=== PATIENT | female | born 1985 | race Caucasian/White ===

== ENCOUNTER 2018-06-15 13:59 | Outpatient (CLI) | payer SELFPAY ==
[~2018-06-15] VITALS: Ht 160 cm; Wt 94.1 kg
[2018-06-15] MEDS ORDERED: FLUO20CA42 PO (14:12)
[2018-06-15] MEDS ORDERED: ALPR0.5T PO (14:12)
[2018-06-15 14:14] VITALS: BP 137/97
[2018-06-15 14:55] LABS: BASOPHILS % (AUTO) 0 % (0-10); EOSINOPHILS # (AUTO) 0.1 10^3/uL (0.0-0.3); EOSINOPHILS % (AUTO) 1 % (0-10); HEMATOCRIT 33 % (35-52); HEMOGLOBIN 10.8 G/DL (11.5-16.0); LYMPHOCYTES # (AUTO) 1.8 X 10^3 (1.0-4.0); LYMPHOCYTES % (AUTO) 21 % (12-44); MEAN CORPUSCULAR HEMOGLOBIN 26 PG (25-34); MEAN CORPUSCULAR HGB CONC 33 G/DL (32-36); MEAN CORPUSCULAR VOLUME 79 FL (80-99); MEAN PLATELET VOLUME 10.8 FL (7.4-10.4); MONOCYTES # (AUTO) 0.3 X 10^3 (0.0-1.0); MONOCYTES % (AUTO) 4 % (0-12); NEUTROPHILS # (AUTO) 6.2 X 10^3 (1.8-7.8); NEUTROPHILS % (AUTO) 74 % (42-75); PLATELET COUNT 274 10^3/uL (130-400); RED CELL DISTRIBUTION WIDTH 15.3 % (10.0-14.5); WHITE BLOOD COUNT 8.4 10^3/uL (4.3-11.0)
== END 2018-06-15 15:13 | disposition home or self-care (01) ==
LOC: PREOP 13:59
PROVIDERS: ATTEND Obstetrics & Gynecology
DX: Z01.812 Encounter for preprocedural laboratory examination (principal); Z11.2 Encounter for screening for other bacterial diseases; N92.1 Excessive and frequent menstruation with irregular cycle; N93.8 Other specified abnormal uterine and vaginal bleeding; R10.2 Pelvic and perineal pain; D64.9 Anemia, unspecified
CPT/HCPCS: 36415; 85025; 86850; 86900; 86901; 87081

== ENCOUNTER 2019-01-25 21:27 | Emergency (ER) | payer OTHER ==
[~2019-01-25] VITALS: Ht 162.6 cm; Wt 104.3 kg
[~2019-01-25 21:27] MED LIST: ALPR0.5T PO; DOCU100C37 PO; FLUO20CA42 PO; IBUP-1780 PO; OXYC-471 PO
--- NOTE | 2019-01-25 21:30 | NUR ---
DOCTOR ALICE IN TO SEE THE PATIENT.
[2019-01-25] MEDS ORDERED: KETOROLAC 30 MG/ML VIAL IVP ONE (22:00)
--- NOTE | 2019-01-25 22:02 | ED Chest Pain ---
General Chief Complaint: Chest Pain Stated Complaint: CHEST PAIN, SOB Nursing Triage Note: CHEST PAIN STARTED THIS AFTERNOON. MID STERNAL MOVEMENT MAKES IT WORSE. PT. REPORTED SHEMOVED AN OUT SIDE TALBE TODAY. PT. REPORTED SHE HAS A HX OF ANXIETY. Nursing Sepsis Screen: No Definite Risk Source: patient History of Present Illness Date Seen by Provider: Jan 25, 2019 Time Seen by Provider: 21:35 Initial Comments 33 yo F presenting with sternal sharp chest pains that have been present off and on all day but worse since a little after lunch time today. She also had moved some patio furniture and that has seemed to make the pain worse, as well as deep breathing making the pain worse. She states that this also feels somewhat similar to inflammation that she is having the past to her breast bone. She thought that she has grown out of that pain. She states that she also has a history of anxiety and also feels similar to this pain. She felt like it was getting worse tonight so she came to the emergency department. She denies having any nausea or vomiting with it. She does not feel short of breath with the pain. She has no known cardiac history. She has no significant family cardiac history. She has not tried taking anything for the pain. Location: substernal Radiation: no radiation Activities at Onset: activity Prior CP/Workup: no prior cardiac workup ASA po SKEIN YARN DRIER: No NTG SL SKE[place] Y[place] DRIER: No Associated Symptoms: denies symptoms Allergies and Home Medications Allergies Coded Allergies: codeine (Verified Allergy, Severe, THROAT SWELLING, 01/25/19) ranitidine (Verified Allergy, Severe, TACHYCARDIA, ITCHING, 06/15/18) atropine (Verified Allergy, Mild, HIVES, 06/15/18) hyoscyamine (Verified Allergy, Mild, HIVES, 06/15/18) omeprazole (Verified Allergy, Mild, RASH, 06/15/18) phenobarbital (Verified Allergy, Mild, HIVES, 06/15/18) scopolamine (Verified Allergy, Mild, HIVES, 06/15/18) Home Medications Alprazolam 0.5 Mg Tablet, 0.5 MG PO TID, (Reported) Docusate Sodium 100 Mg Capsule, 100 MG PO BID Prescribed by: FLORY BARBER on 06/18/18 1158 Fluoxetine HCl 20 Mg Capsule, 20 MG PO DAILY, (Reported) Ibuprofen 800 Mg Tablet, 800 MG PO Q6HR Prescribed by: FLORY BARBER on 06/18/18 1158 Oxycodone HCl/Acetaminophen 1 Each Tablet, 1 TAB PO Q4H PRN for PAIN-MODERATE Prescribed by: FLORY BARBER on 06/18/18 1158 Patient Home Medication List Home Medication List Reviewed: Yes Review of Systems Review of Systems Constitutional: No chills, No fever EENTM: No Symptoms Reported Respiratory: Denies Cough, Denies Shortness of Air Cardiovascular: See HPI Gastrointestinal: See HPI Genitourinary: No Symptoms Reported Musculoskeletal: back pain (chronic upper back pain) Skin: No rash Psychiatric/Neurological: Anxiety Past Fkdbeqa-Gmplyr-Fwljyo Hx Past Med/Social Hx: Reviewed Nursing Past Med/Soc Hx Patient Social History Type Used: Electronic/Vapor Recent Foreign Travel: No Contact w/Someone Who Travel: No Recent Infectious Disease Expo: No Recent Hopitalizations: No Physical Abuse: No Sexual Abuse: No Mistreated: No Fear: No Seasonal Allergies Seasonal Allergies: Yes Past Medical History Surgeries: Yes Gallbladder Respiratory: No Cardiac: Yes Hypertension : No 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: Yes (DUB, CPP, MENORRHAGIA) Female 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: 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, 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 Sexually Transmitted Disease: No HIV/AIDS: No Gastrointestinal: Yes Gastroesophageal Reflux, Chronic Constipation, Chronic Diarrhea, Hiatal Hernia Musculoskeletal: Yes Chronic Back Pain Endocrine: No HEENT: No Loss of Vision: Bilateral Cancer: No Psychosocial: Yes Anxiety, Depression Adverse Reaction/Blood Tranf: No (N/A) Physical Exam Vital Signs Vital Signs - First Documented 01/25/19 01/25/19 21:30 22:39 Temp 98.3 Pulse 100 Resp 16 B/P (MAP) 141/97 (112) Pulse Ox 100 O2 Delivery Nasal Cannula O2 Flow Rate 2.0 Capillary Refill : Greater Than 3 Seconds Height, Weight, BMI Height: 5'4.00" Weight: 230lbs. 6.0oz. [id number]; 36.7 BMI Method:Stated General Appearance: WD/WN, Anxious HEENT: PERRL/EOMI, Normal ENT Inspection, Pharynx Normal, Moist Mucous Membranes Neck: Full Range of Motion, Normal Inspection, Non Tender, Supple Respiratory: Lungs Clear, Normal Breath Sounds, No Accessory Muscle Use, No Respiratory Distress, Other (tender to palpation over sternum) Cardiovascular: Regular Rate, Rhythm, No Edema, No Gallop, No JVD, No Murmur, Normal Peripheral Pulses Gastrointestinal: Normal Bowel Sounds, No Pulsatile Mass, Non Tender, Soft Rectal: Deferred Extremity: Normal Capillary Refill, Normal Inspection, Normal Range of Motion, Non Tender, No Calf Tenderness, No Pedal Edema Neurologic/Psychiatric: Alert, Oriented x3 Skin: Normal Color, Warm/Dry Progress/Results/Core Measures Results/Orders Lab Results Laboratory Tests Test 01/25/19 22:15 Range/Units White Blood Count 10.0 4.3-11.0 10^3/uL Red Blood Count 4.14 L 4.35-5.85 10^6/uL Hemoglobin 10.7 L 11.5-16.0 G/DL Hematocrit 34 L 35-52 % Mean Corpuscular Volume 82 80-99 FL Mean Corpuscular Hemoglobin 26 25-34 PG Mean Corpuscular Hemoglobin Concent 32 32-36 G/DL Red Cell Distribution Width 16.6 H 10.0-14.5 % Platelet Count 324 130-400 10^3/uL Mean Platelet Volume 10.1 7.4-10.4 FL Neutrophils (%) (Auto) 73 42-75 % Lymphocytes (%) (Auto) 22 12-44 % Monocytes (%) (Auto) 4 0-12 % Eosinophils (%) (Auto) 1 0-10 % Basophils (%) (Auto) 0 0-10 % Neutrophils # (Auto) 7.3 1.8-7.8 X 10^3 Lymphocytes # (Auto) 2.2 1.0-4.0 X 10^3 Monocytes # (Auto) 0.4 0.0-1.0 X 10^3 Eosinophils # (Auto) 0.1 0.0-0.3 10^3/uL Basophils # (Auto) 0.0 0.0-0.1 10^3/uL Prothrombin Time 12.8 12.2-14.7 SEC INR Comment 1.0 0.8-1.4 Activated Partial Thromboplast Time 27 24-35 SEC Sodium Level 141 135-145 MMOL/L Potassium Level 3.6 3.6-5.0 MMOL/L Chloride Level 104 98-107 MMOL/L Carbon Dioxide Level 25 21-32 MMOL/L Anion Gap 12 5-14 MMOL/L Blood Urea Nitrogen 13 7-18 MG/DL Creatinine 0.76 0.60-1.30 MG/DL Estimat Glomerular Filtration Rate > 60 BUN/Creatinine Ratio 17 Glucose Level 117 H 70-105 MG/DL Calcium Level 9.4 8.5-10.1 MG/DL Corrected Calcium 9.3 8.5-10.1 MG/DL Magnesium Level 2.1 1.8-2.4 MG/DL Total Bilirubin 0.2 0.1-1.0 MG/DL Aspartate Amino Transf (AST/SGOT) 14 5-34 U/L Alanine Aminotransferase (ALT/SGPT) 13 0-55 U/L Alkaline Phosphatase 92 40-136 U/L Troponin T < 10 <=10 NG/L Pro-B-Type Natriuretic Peptide 81.9 H <75.0 PG/ML Total Protein 7.5 6.4-8.2 GM/DL Albumin 4.1 3.2-4.5 GM/DL My Orders Orders - ENYARTYANELY MD Cbc With Automated Diff (01/25/19 21:53) Magnesium (01/25/19 21:53) Chest 1 View Ap/Pa Only (01/25/19 21:53) Ekg Tracing (01/25/19 21:53) Comprehensive Metabolic Panel (01/25/19 21:53) Protime With Inr (01/25/19 21:53) Partial Thromboplastin Time (01/25/19 21:53) O2 (01/25/19 21:53) Monitor-Rhythm Ecg Trace Only (01/25/19 21:53) Saline Lock/Iv-Start (01/25/19 21:53) Troponin T (01/25/19 21:53) Probnp Fs (01/25/19 21:53) Ketorolac Injection (Toradol Injection) (01/25/19 22:00) Medications Given in ED Current Medications Medications Dose Ordered Sig/Shahram Route Start Time Stop Time Status Last Admin Dose Admin Ketorolac Tromethamine 30 mg ONCE ONCE IVP 01/25/19 22:00 01/25/19 22:01 DC 01/25/19 22:22 30 MG Vital Signs/I&O 01/25/19 01/25/19 01/25/19 21:30 21:30 22:39 Temp 98.3 Pulse 100 Resp 16 B/P (MAP) 141/97 (112) Pulse Ox 100 O2 Delivery Nasal Cannula Nasal Cannula O2 Flow Rate 2.0 2.00 Blood Pressure Mean: 112 Progress Progress Note #1: Time: 22:00 Progress Note Will check labs and ECG with CXR. Try Toradol for pain since she has some reproducible pain and some pain with deep breaths. Since this does not appear to be cardiac in nature will hold off on aspirin. Progress Note #2: Time: 23:00 Progress Note labs are stable and did not show any acute significant abnormalities. She has negative cardiac enzymes and they're not elevated at all. Especially after having pain all day for several hours if this was cardiac in nature I would expect to see at least some elevation. Her chest x-ray on my review of the one view film does not show any acute significant abnormality. She has no effusion or infiltrate. Her heart size is normal and there is no cardiomegaly. Consultation on results and encouraged to follow-up through the clinic for further concerns. Advised that this seems to be more musculoskeletal in nature and chest wall pain. Will continue with ibuprofen at home and she refused the prescription. We will also have her try alternating ice and heat to the chest wall. Initial ECG Impression Date: Jan 25, 2019 Initial ECG Impression Time: 21:34 Initial ECG Rate: 92 Initial ECG Rhythm: Normal Sinus Initial ECG Intervals DC interval 160 ms. QT interval 386 ms with a QT corrected interval of 477 ms. There is a slightly prolonged QT. No ST elevation and no prior tracing for comparison. Initial ECG Comparisson: No Previous ECG Available Comment She has some T-wave flattening and there's T-wave inversion in leads V1 and 2 and 3. There is no ST elevation. She does have prolonged QT interval. These are nonspecific findings and there is no prior tracing for comparison. Diagnostic Imaging Diagonstic Imaging: Xray Plain Films/CT/US/NM/MRI: chest Comments On my review of the 1 view chest x-ray there is no acute infiltrate or effusion. She has no cardiomegaly. Reviewed: Reviewed by Me Departure Impression Primary Impression: Anterior chest wall pain Additional Impressions: Costochondral chest pain Non-cardiac chest pain Disposition: 01 HOME, SELF-CARE Condition: Stable Departure-Patient Inst. Decision time for Depature: 23:20 Referrals: SELFDARRELL MD (PCP) Primary Care Physician Patient Instructions: Chest Pain That Is Not Caused by the Heart (DC), Costochondritis (DC) Add. Discharge Instructions: Try Ibuprofen 800 mg every 8 hours as needed for chest wall pain. Check with Dr. Andrade in clinic for continued concerns/problems You may also try alternating ice pack for 20-30 minutes to your chest wall and then in a few hours you could apply heat for 20-30 minutes to the chest wall. All discharge instructions reviewed with patient and/or family. Voiced understanding. YANELY JENKINS MD Jan 25, 2019 22:02
[2019-01-25 22:26] LABS: EOSINOPHILS % (AUTO) 1 % (0-10); HEMATOCRIT 34 % (35-52); HEMOGLOBIN 10.7 G/DL (11.5-16.0); LYMPHOCYTES % (AUTO) 22 % (12-44); MEAN CORPUSCULAR HEMOGLOBIN 26 PG (25-34); MEAN CORPUSCULAR HGB CONC 32 G/DL (32-36); MEAN CORPUSCULAR VOLUME 82 FL (80-99); MEAN PLATELET VOLUME 10.1 FL (7.4-10.4); MONOCYTES % (AUTO) 4 % (0-12); NEUTROPHILS % (AUTO) 73 % (42-75); PLATELET COUNT 324 10^3/uL (130-400); RED CELL DISTRIBUTION WIDTH 16.6 % (10.0-14.5)
[2019-01-25 22:27] LABS: BASOPHILS % (AUTO) 0 % (0-10); EOSINOPHILS # (AUTO) 0.1 10^3/uL (0.0-0.3); LYMPHOCYTES # (AUTO) 2.2 X 10^3 (1.0-4.0); MONOCYTES # (AUTO) 0.4 X 10^3 (0.0-1.0); NEUTROPHILS # (AUTO) 7.3 X 10^3 (1.8-7.8)
[2019-01-25 22:52] LABS: PROTHROMBIN TIME PATIENT 12.8 SEC (12.2-14.7)
--- NOTE | 2019-01-25 22:56 | NUR ---
PT. REPORTED HER PAIN HAD IMPROVED.
[2019-01-25 22:58] LABS: ALANINE AMINOTRANSFERASE 13 U/L (0-55); ALBUMIN 4.1 GM/DL (3.2-4.5); ALKALINE PHOSPHATASE 92 U/L (40-136); BILIRUBIN,TOTAL 0.2 MG/DL (0.1-1.0); BUN/CREATININE RATIO 17; CALCIUM 9.4 MG/DL (8.5-10.1); CARBON DIOXIDE 25 MMOL/L (21-32); CHLORIDE 104 MMOL/L (98-107); CREATININE SERUM 0.76 MG/DL (0.60-1.30); GFR ESTIMATED > 60; GLUCOSE 117 MG/DL (70-105); MAGNESIUM 2.1 MG/DL (1.8-2.4); POTASSIUM 3.6 MMOL/L (3.6-5.0); SODIUM 141 MMOL/L (135-145); TOTAL PROTEIN 7.5 GM/DL (6.4-8.2)
[2019-01-25 23:33] VITALS: BP 130/80
--- NOTE | 2019-01-26 07:00 | Diagnostic Imaging Report ---
INDICATION: Mid chest pain started today. COMPARISON STUDY: None FINDINGS: Frontal view of the chest demonstrates lungs to be clear. The heart, mediastinum, pulmonary vascularity and visualized bony thorax are normal. IMPRESSION: Negative chest. Dictated by: Dictated on workstation # [id number]
== END 2019-01-25 23:30 | disposition home or self-care (01) ==
LOC: EDUNIT# 21:27 → ER FS 21:29
DX: R07.89 Other chest pain (principal); I10 Essential (primary) hypertension; K21.9 Gastro-esophageal reflux disease without esophagitis; F41.9 Anxiety disorder, unspecified; F32.9 Major depressive disorder, single episode, unspecified; Z87.19 Personal history of other diseases of the digestive system; Z88.5 Allergy status to narcotic agent; Z88.8 Allergy status to other drugs, medicaments and biological substances
CPT/HCPCS: 36415; 71045; 80053; 83735; 83880; 84484; 85025; 85610; 85730; 93041; 96374

== ENCOUNTER 2019-01-28 19:45 | Emergency (ER) | payer OTHER ==
[~2019-01-28] VITALS: Ht 162.6 cm; Wt 104.5 kg
--- NOTE | 2019-01-28 20:09 | ED General ---
General Stated Complaint: HIGH HEART RATE, SOB Source of Information: Patient Exam Limitations: No Limitations (KWKAU KIMBROUGH MD) History of Present Illness Date Seen by Provider: Jan 28, 2019 Time Seen by Provider: 19:52 Initial Comments Here with report of heart rate problems and feeling anxious. Apparently she woke up this morning and that her heart rate was in the 40s and then rechecked and was very nervous and heart rate was fast. Has been fast all day. She finally took her metoprolol that she normally takes twice a day this evening. Very concerned about her heart rate. Seen 2 days ago for chest pain and a variety of complaints and has had extensive workup done at that time which proved to be negative. She was doing okay until this afternoon. Does have some intermittent diarrhea but otherwise denies other complaints currently. Timing/Duration: 2-3 Days, Intermittent Severity: Moderate Associated Systoms: No Chest Pain, No Fever/Chills, No Nausea/Vomiting, No Shortness of Air, No Weakness (KWAKU KIMBROUGH MD) Allergies and Home Medications Allergies Coded Allergies: codeine (Verified Allergy, Severe, THROAT SWELLING, 01/25/19) ranitidine (Verified Allergy, Severe, TACHYCARDIA, ITCHING, 06/15/18) atropine (Verified Allergy, Mild, HIVES, 06/15/18) hyoscyamine (Verified Allergy, Mild, HIVES, 06/15/18) omeprazole (Verified Allergy, Mild, RASH, 06/15/18) phenobarbital (Verified Allergy, Mild, HIVES, 06/15/18) scopolamine (Verified Allergy, Mild, HIVES, 06/15/18) Home Medications Alprazolam 0.5 Mg Tablet, 0.5 MG PO TID, (Reported) Docusate Sodium 100 Mg Capsule, 100 MG PO BID Prescribed by: FLORY BARBER on 06/18/18 1158 Fluoxetine HCl 20 Mg Capsule, 20 MG PO DAILY, (Reported) Ibuprofen 800 Mg Tablet, 800 MG PO Q6HR Prescribed by: FLORY BARBER on 06/18/18 1158 Oxycodone HCl/Acetaminophen 1 Each Tablet, 1 TAB PO Q4H PRN for PAIN-MODERATE Prescribed by: FLORY BARBER on 06/18/18 1158 Patient Home Medication List Home Medication List Reviewed: Yes (KWAKU KIMBROUGH MD) Review of Systems Review of Systems Constitutional: see HPI; No chills, No fever EENTM: no symptoms reported Respiratory: No cough, No short of breath Cardiovascular: No chest pain; palpitations Gastrointestinal: No abdominal pain; diarrhea; No nausea, No vomiting Genitourinary: no symptoms reported Musculoskeletal: no symptoms reported Skin: no symptoms reported Psychiatric/Neurological: Anxiety; Denies Weakness (KWAKU KIMBROUGH MD) All Other Systems Reviewed Negative Unless Noted: Yes (KWAKU KIMBROUGH MD) Past Mwuprjr-Mkinak-Jnmvnd Hx Past Med/Social Hx: Reviewed Nursing Past Med/Soc Hx (KWAKU KIMBROGUH MD) Patient Social History Alcohol Use: Denies Use Recreational Drug Use: No Smoking Status: Current Everyday Smoker Type Used: Electronic/Vapor Recent Foreign Travel: No Contact w/Someone Who Travel: No Recent Hopitalizations: No (KWAKU KIMBROUGH MD) Seasonal Allergies Seasonal Allergies: Yes (KWAKU KIMBROUGH MD) Past Medical History Surgeries: Yes Gallbladder Respiratory: No Cardiac: Yes Hypertension 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: Yes (DUB, CPP, MENORRHAGIA) Female 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: 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, 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 Sexually Transmitted Disease: No HIV/AIDS: No Gastrointestinal: Yes Gastroesophageal Reflux, Chronic Constipation, Chronic Diarrhea, Hiatal Hernia Musculoskeletal: Yes Chronic Back Pain Endocrine: No HEENT: No Loss of Vision: Bilateral Cancer: No Psychosocial: Yes Anxiety, Depression Adverse Reaction/Blood Tranf: No (N/A) (KWAKU KIMBROUGH MD) Family Medical History Reviewed Nursing Family Hx (KWAKU KIMBROUGH MD) Physical Exam Vital Signs Vital Signs - First Documented 01/28/19 19:49 Temp 97.8 Pulse 112 Resp 18 B/P (MAP) 139/88 (105) Pulse Ox 99 O2 Delivery Room Air ([facility]) Vital Signs Capillary Refill : (KWAKU KIMBROUGH MD) Height, Weight, BMI Height: 5'4.00" Weight: 230lbs. 6.0oz. 104.840249cy; 36.7 BMI Method:Stated General Appearance: WD/WN, Anxious HEENT: PERRL/EOMI, Pharynx Normal Neck: Non Tender, Supple Respiratory: Lungs Clear, Normal Breath Sounds Cardiovascular: No Murmur, Tachycardia Gastrointestinal: Non Tender, Soft Back: Normal Inspection, No CVA Tenderness, No Vertebral Tenderness Extremity: Normal Range of Motion, Non Tender Neurologic/Psychiatric: Alert, Oriented x3 Skin: Normal Color, Warm/Dry (KWAKU KIMBROUGH MD) Progress/Results/Core Measures Suspected Sepsis SIRS Temperature: Pulse: Respiratory Rate: Blood Pressure / Mean: (KWAKU KIMBROUGH MD) Results/Orders Lab Results Laboratory Tests Test 01/28/19 20:11 Range/Units TSH [place] Testing 1.43 0.35-4.94 UIU/ML (CECELIA DÍAZ DO) Medications Given in ED Current Medications Medications Dose Ordered Sig/Shahram Route Start Time Stop Time Status Last Admin Dose Admin Alprazolam 0.25 mg ONCE ONCE PO 01/28/19 20:15 01/28/19 20:16 DC 01/28/19 20:21 0.25 MG (CECELIA DÍAZ DO) Vital Signs/I&O 01/28/19 01/28/19 19:49 21:01 Temp 97.8 Pulse 112 88 Resp 18 18 B/P (MAP) 139/88 (105) Pulse Ox 99 98 O2 Delivery Room Air Room Air (CECELIA DÍAZ DO) Vital Signs/I&O Capillary Refill : (KWAKU KIMBROUGH MD) Progress Note : Progress Note Seen and evaluated. Reviewed previous evaluation from 2 days ago. Patient reports that she may have not taken her metoprolol is morning this may be part of the cause of her heart rate. She is anxious but calms with reassurance and heart rate is improving with rest to below 100. Thyroid was not checked previously so we will add that today. Xanax 0.25 mg by mouth given. Patient placed on monitor. O2 saturations 100% on room air. Patient has normal blood pressure. Monitor patient. 2030: Care transferred to Dr. Díaz pending thyroid study. Heart rate now 88-90 with O2 sat 98% on room air. Blood pressure 125/77. (KWAKU KIMBROUGH MD) Departure Communication (Admissions) Care assumed from Dr. Kimbrough,. H&P reviewed, agree with previous assessment. Vital signs remained stable, patient visibly last anxious. Thyroid study reviewed and is normal. Patient is stable for discharge from the emergency department. Recommendation is for PCP for further evaluation of potential arrhythmia and consideration of Holter monitor and further management of anxiety. Return cautions reviewed (CECELIA DÍAZ DO) Impression Primary Impression: Anxiety Disposition: 01 HOME, SELF-CARE Condition: Stable Departure-Patient Inst. Referrals: SELFDARRELL MD (PCP/Family) Primary Care Physician Patient Instructions: Anxiety, Adult (DC) Add. Discharge Instructions: Please continue home medications as follow up with your PCP for re-evaluation of potential heart arrhythmia and anxiety and consideration of Holter monitor. KWAKU KIMBROUGH MD Jan 28, 2019 20:09 CECELIA DÍAZ DO Jan 28, 2019 22:24
[2019-01-28] MEDS ORDERED: ALPRAZolam 0.25 MG (XANAX) TAB PO ONE (20:15)
[2019-01-28 22:40] VITALS: BP 103/68
== END 2019-01-28 22:40 | disposition home or self-care (01) ==
LOC: EDUNIT# 19:45 → ER FS 19:47
DX: F41.9 Anxiety disorder, unspecified (principal); I10 Essential (primary) hypertension; K21.9 Gastro-esophageal reflux disease without esophagitis; F32.9 Major depressive disorder, single episode, unspecified; F17.290 Nicotine dependence, other tobacco product, uncomplicated; Z88.5 Allergy status to narcotic agent; Z87.19 Personal history of other diseases of the digestive system; Z88.8 Allergy status to other drugs, medicaments and biological substances; Z87.448 Personal history of other diseases of urinary system; Z98.890 Other specified postprocedural states
CPT/HCPCS: 36415; 84443

== ENCOUNTER 2019-12-02 18:29 | Emergency (ER) | payer OTHER ==
[~2019-12-02] VITALS: Ht 160 cm; Wt 91.5 kg
--- NOTE | 2019-12-02 18:47 | ED Fall/Injury ---
General Stated Complaint: FELL Source: patient History of Present Illness Date Seen by Provider: Dec 02, 2019 Time Seen by Provider: 18:47 Initial Comments 34 yo F presents with complaints of tailbone pain and right knee and ankle pain after falling when getting out of the shower. The fall happened about 1730 tonight. She denies hitting her head or losing consciousness. She did not take anything for pain prior to coming to the emergency department. She has had prior injury to her tailbone when she was younger and states that her tailbone curves out instead of curving in. She has been able to hobble and bear some weight on the right leg but states that it hurts a lot. She has no loss of sensation. She had no loss of bowel or bladder control. Allergies and Home Medications Allergies Coded Allergies: codeine (Verified Allergy, Severe, THROAT SWELLING, 01/25/19) ranitidine (Verified Allergy, Severe, TACHYCARDIA, ITCHING, 06/15/18) atropine (Verified Allergy, Mild, HIVES, 06/15/18) hyoscyamine (Verified Allergy, Mild, HIVES, 06/15/18) omeprazole (Verified Allergy, Mild, RASH, 06/15/18) phenobarbital (Verified Allergy, Mild, HIVES, 06/15/18) scopolamine (Verified Allergy, Mild, HIVES, 06/15/18) Home Medications Alprazolam 0.5 Mg Tablet, 0.5 MG PO TID, (Reported) Cyclobenzaprine HCl 10 Mg Tablet, 5 MG PO Q8H PRN for SPASMS Prescribed by: YANELY JENKINS on 12/02/192102 Docusate Sodium 100 Mg Capsule, 100 MG PO BID Prescribed by: FLORY BARBER on 06/18/18 115 Fluoxetine HCl 20 Mg Capsule, 20 MG PO DAILY, (Reported) Ibuprofen 800 Mg Tablet, 800 MG PO Q6HR Prescribed by: FLORY BARBER on 06/18/18 115 Ibuprofen 800 Mg Tablet, 800 MG PO Q8H PRN for PAIN Prescribed by: YANELY JENKINS on 12/02/192102 Oxycodone HCl/Acetaminophen 1 Each Tablet, 1 TAB PO Q4H PRN for PAIN-MODERATE Prescribed by: FLORY BARBER on 06/18/18 1158 Patient Home Medication List Home Medication List Reviewed: Yes Review of Systems Review of Systems Constitutional: No chills, No fever Eyes: No Symptoms Reported Ears, Nose, Mouth, Throat: no symptoms reported Respiratory: no symptoms reported Cardiovascular: no symptoms reported Gastrointestinal: no symptoms reported Genitourinary: no symptoms reported Musculoskeletal: see HPI Skin: No change in color (no bruising or abrasions), No rash Psychiatric/Neurological: Anxiety; Denies Headache, Denies Numbness, Denies Paresthesia Past Akmgpdc-Puswed-Ucjouh Hx Past Med/Social Hx: Reviewed Nursing Past Med/Soc Hx Patient Social History Type Used: Electronic/Vapor Recent Foreign Travel: No Contact w/Someone Who Travel: No Recent Hopitalizations: No Seasonal Allergies Seasonal Allergies: Yes Past Medical History Surgeries: Yes Gallbladder Respiratory: No Cardiac: Yes Hypertension Neurological: No 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: Yes (DUB, CPP, MENORRHAGIA) Female 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: 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, 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 Sexually Transmitted Disease: No HIV/AIDS: No Genitourinary: No Gastrointestinal: Yes Gastroesophageal Reflux, Chronic Constipation, Chronic Diarrhea, Hiatal Hernia Musculoskeletal: Yes Chronic Back Pain Endocrine: No HEENT: No Loss of Vision: Bilateral Cancer: No Psychosocial: Yes Anxiety, Depression Integumentary: No Blood Disorders: No Adverse Reaction/Blood Tranf: No (N/A) Physical Exam Vital Signs Vital Signs - First Documented 12/02/19 18:38 Temp 37.0 Pulse 99 Resp 20 B/P (MAP) 128/68 (88) Pulse Ox 97 O2 Delivery Room Air Capillary Refill : Height, Weight, BMI Height: 5'4.00" Weight: 230lbs. 6.0oz. [id number]; 36.7 BMI Method:Stated General Appearance: WD/WN, moderate distress (complaining of severe pain in her tailbone and right leg and having difficulty sitting in a wheelchair), obese HEENT: PERRL/EOMI, pharynx normal Neck: non-tender, full range of motion, supple, normal inspection Cardiovascular: normal peripheral pulses, regular rate, rhythm Respiratory: chest non-tender, lungs clear, normal breath sounds, no respiratory distress, no accessory muscle use Back: no CVA tenderness, vertebral tenderness (pain to the lumbar area) Extremities: normal capillary refill, pelvis stable, other (pain with palpation and movement of the right knee and ankle as well as over the coccyx and sacrum.) 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, alert, oriented x 3 Skin: normal color, warm/dry; No ecchymosis [place] Coma Score Best Eye Response: (4) Open Spontaneously Best Verbal Response: (5) Oriented Best Motor Response: (6) Obeys Commands Gi Total: 15 Progress/Results/Core Measures Results/Orders My Orders Orders - YANELY JENKINS MD Ketorolac Injection (Toradol Injection) (12/02/19 18:58) Ct Lumbar Spine Wo (12/02/19 18:58) Ct Pelvis Wo (12/02/19 18:58) Knee 3 View Right (12/02/19 18:58) Ankle 3 View Right (12/02/19 18:58) Ice: Apply To Affected Area (12/02/19 18:58) Elevate Affected Extremity (12/02/19 18:58) Nursing Communication (Order) (12/02/19 18:59) Gel Ankle Brace (12/02/19 20:31) Abhi Bandage (12/02/19 20:31) Rx-Cyclobenzaprine Tablet (Rx-Flexeril T (12/02/19 21:03) Vital Signs/I&O 12/02/19 12/02/19 18:38 21:12 Temp 37.0 37.0 Pulse 99 99 Resp 20 20 B/P (MAP) 128/68 (88) 128/68 (88) Pulse Ox 97 97 O2 Delivery Room Air Room Air Progress Progress Note #1: Progress Note Toradol for pain, ice and elevation for right leg. obtain CT of lumbar spine and pelvis to evaluate the lumbar spine and pelvis with tailbone area. Xrays of the knee and ankle on right side Progress Note #2: Progress Note No acute bony abnormality or fracture seen on CT scans or plain films. Pain slightly improved after treatment in the ED. Counseled on results. Treat with anti-inflammatories as patient refuses stronger pain medicine. Will prescribe a low-dose muscle relaxer as well. Counseled to follow up with clinic for continued concerns Diagnostic Imaging Diagonstic Imaging: CT Plain Films/CT/US/NM/MRI: pelvis Comments NAME: ZEUS BULLARD MED REC#: [id number] PT STATUS: REG ER : 1985 PHYSICIAN: YANELY JENKINS MD ADMIT DATE: 12/02/19/ER FS Draft Date of Exam:12/02/19 CT PELVIS WO PROCEDURE: CT pelvis without contrast. TECHNIQUE: Multiple contiguous axial images were obtained through the pelvis without the use of intravenous contrast. Sagittal and coronal reformations were performed. Auto Exposure Controls were utilized during the CT exam to meet ALARA standards for radiation dose reduction. INDICATION: Fall in shower, pain COMPARISON: None available FINDINGS: No acute fracture or dislocation. No destructive osseous process. The pubic symphysis and sacroiliac joints are intact. No significant free fluid within the lower pelvis. The uterus is not visualized, likely surgically absent. No evidence of bowel obstruction within the [id number]. No focal fluid collection. IMPRESSION: No acute osseous abnormality. Dictated on workstation # [id number] Dict: 12/02/191936 Trans: 12/02/19 [facility] [id number] Interpreted by: KINA WRIGHT MD Electronically signed by: Diagonstic Imaging: CT Plain Films/CT/US/NM/MRI: other (lumbar spine) Comments NAME: ZEUS BULLARD [facility] REC#: [id number] PT STATUS: REG ER : 1985 PHYSICIAN: YANELY JENKINS MD ADMIT DATE: 12/02/19/ER FS Draft Date of Exam:12/02/19 CT LUMBAR SPINE WO PROCEDURE: CT lumbar spine without contrast. TECHNIQUE: Multiple contiguous axial images were obtained through the lumbar spine without the use of intravenous contrast. Sagittal and coronal reformations were then performed. Auto Exposure Controls were utilized during the CT exam to meet ALARA standards for radiation dose reduction. INDICATION: Fall, pain COMPARISON: Imaging from the same date. FINDINGS: Five lumbar type vertebral bodies are present. Alignment of the lumbar spine is well maintained. Vertebral body heights and disc spaces are well-maintained. No acute fracture or dislocation. No destructive osseous process. No high-grade osseous central canal or neural foraminal stenosis. Nonobstructing left renal calculi. Paraspinal soft tissues are otherwise unremarkable. IMPRESSION: No acute osseous abnormality. Several nonobstructing left renal calculi. Dictated on workstation # [id number] Dict: 12/02/191939 Trans: 12/02/191943 MELISSA Interpreted by: KINA WRIGHT MD Electronically signed by: Diagonstic Imaging: Xray Plain Films/CT/US/NM/MRI: knee Comments NAME: ZEUS BULLARD [facility] REC#: [id number] PT STATUS: REG ER : 1985 PHYSICIAN: YANELY JENKINS MD ADMIT DATE: 12/02/19/ER FS Draft Date of Exam:12/02/19 KNEE 3 VIEW RIGHT INDICATION: Fall. Knee pain. COMPARISON: None. FINDINGS: 3 views of the right knee joint demonstrate no acute fracture or dislocation. No focal osseous lesions are seen. No significant joint effusion is seen. The surrounding soft tissue structures are unremarkable. There are no radiopaque foreign bodies. IMPRESSION: 1. No acute fractures or dislocations of the right knee joint. Dictated on workstation # [id number] Dict: 12/02/191956 Trans: 12/02/191957 MELISSA Interpreted by: RASHMI PADILLA MD Electronically signed by: Diagonstic Imaging: Xray Plain Films/CT/US/NM/MRI: ankle Comments NAME: ZEUS BULLARD [facility] REC#: [id number] PT STATUS: REG ER : 1985 PHYSICIAN: YANELY JENKINS MD ADMIT DATE: 12/02/19/ER FS Draft Date of Exam:12/02/19 ANKLE 3 VIEW RIGHT INDICATION: Fall. Ankle pain. COMPARISON: None. FINDINGS: 3 views of the right ankle were obtained. There is no acute fracture or dislocation. No focal osseous lesions are seen. The surrounding soft tissue structures are unremarkable. There are no radiopaque foreign bodies. IMPRESSION: 1. No acute fracture or dislocation in the right ankle. Dictated on workstation # [id number] Dict: 12/02/191955 Trans: 12/02/191956 MELISSA [id number] Interpreted by: RASHMI PADILLA MD Electronically signed by: Departure Impression Primary Impression: Coccyx contusion Qualified Codes: S30.0XXA - Contusion of lower back and pelvis, initial encounter Additional Impressions: Fall in (into) shower or empty bathtub, initial encounter Right knee sprain Qualified Codes: S83.91XA - Sprain of unspecified site of right knee, initial encounter Right ankle sprain Qualified Codes: S93.401A - Sprain of unspecified ligament of right ankle, initial encounter Disposition: 01 HOME, SELF-CARE Condition: Stable Departure-Patient Inst. Decision time for Depature: 21:00 Referrals: DARRELL BORGES MD (PCP/Family) Primary Care Physician Patient Instructions: Coccyx Injury (DC), Ankle Sprain (DC), Knee Sprain (DC) Add. Discharge Instructions: Ice 20-30 minutes every few hours as needed for pain and swelling Abhi bandage for compression and support to knee and air cast to ankle to help with support Use Ibuprofen to help with inflammation and sprain Check with clinic for continued problems Scripts Cyclobenzaprine HCl (Cyclobenzaprine HCl) 10 Mg Tablet 5 MG PO Q8H PRN for SPASMS for 10 Days, #15 TAB 0 Refills Prov: YANELY JENKINS MD 12/02/19 Ibuprofen (Ibuprofen) 800 Mg Tablet 800 MG PO Q8H PRN for PAIN for 10 Days, #30 TAB 0 Refills Prov: YANELY JENKINS MD 12/02/19 YANELY JENKINS MD Dec 02, 2019 18:47
[2019-12-02] MEDS ORDERED: KETOROLAC 60 MG/2 ML VIAL IM STA (18:58)
--- NOTE | 2019-12-02 19:43 | Diagnostic Imaging Report ---
PROCEDURE: CT pelvis without contrast. TECHNIQUE: Multiple contiguous axial images were obtained through the pelvis without the use of intravenous contrast. Sagittal and coronal reformations were performed. Auto Exposure Controls were utilized during the CT exam to meet ALARA standards for radiation dose reduction. INDICATION: Fall in shower, pain COMPARISON: None available FINDINGS: No acute fracture or dislocation. No destructive osseous process. The pubic symphysis and sacroiliac joints are intact. No significant free fluid within the lower pelvis. The uterus is not visualized, likely surgically absent. No evidence of bowel obstruction within the [id number]. No focal fluid collection. IMPRESSION: No acute osseous abnormality. Dictated by: Dictated on workstation # [id number]
--- NOTE | 2019-12-02 19:44 | Diagnostic Imaging Report ---
PROCEDURE: CT lumbar spine without contrast. TECHNIQUE: Multiple contiguous axial images were obtained through the lumbar spine without the use of intravenous contrast. Sagittal and coronal reformations were then performed. Auto Exposure Controls were utilized during the CT exam to meet ALARA standards for radiation dose reduction. INDICATION: Fall, pain COMPARISON: Imaging from the same date. FINDINGS: Five lumbar type vertebral bodies are present. Alignment of the lumbar spine is well maintained. Vertebral body heights and disc spaces are well-maintained. No acute fracture or dislocation. No destructive osseous process. No high-grade osseous central canal or neural foraminal stenosis. Nonobstructing left renal calculi. Paraspinal soft tissues are otherwise unremarkable. IMPRESSION: No acute osseous abnormality. Several nonobstructing left renal calculi. Dictated by: Dictated on workstation # [id number]
--- NOTE | 2019-12-02 19:58 | Diagnostic Imaging Report ---
INDICATION: Fall. Ankle pain. COMPARISON: None. FINDINGS: 3 views of the right ankle were obtained. There is no acute fracture or dislocation. No focal osseous lesions are seen. The surrounding soft tissue structures are unremarkable. There are no radiopaque foreign bodies. IMPRESSION: 1. No acute fracture or dislocation in the right ankle. Dictated by: Dictated on workstation # [id number]
--- NOTE | 2019-12-02 19:58 | Diagnostic Imaging Report ---
INDICATION: Fall. Knee pain. COMPARISON: None. FINDINGS: 3 views of the right knee joint demonstrate no acute fracture or dislocation. No focal osseous lesions are seen. No significant joint effusion is seen. The surrounding soft tissue structures are unremarkable. There are no radiopaque foreign bodies. IMPRESSION: 1. No acute fractures or dislocations of the right knee joint. Dictated by: Dictated on workstation # [id number]
[2019-12-02] MEDS ORDERED: RX-CYCLOBENZAPRINE 10 MG (FLEXERIL) TAB PPK#3 PO STA (21:03)
[2019-12-02] MEDS ORDERED: CYCL10TA9 PO (21:03)
[2019-12-02] MEDS ORDERED: IBUP-1780 PO (21:03)
[2019-12-02 21:12] VITALS: BP 128/68
== END 2019-12-02 21:10 | disposition home or self-care (01) ==
LOC: EDUNIT# 18:29 → ER FS 18:30
DX: S30.0XXA Contusion of lower back and pelvis, initial encounter (principal); S83.91XA Sprain of unspecified site of right knee, initial encounter; S93.401A Sprain of unspecified ligament of right ankle, initial encounter; F41.9 Anxiety disorder, unspecified; F32.9 Major depressive disorder, single episode, unspecified; R40.2142 Coma scale, eyes open, spontaneous, at arrival to emergency department; R40.2252 Coma scale, best verbal response, oriented, at arrival to emergency department; R40.2362 Coma scale, best motor response, obeys commands, at arrival to emergency department; Z88.5 Allergy status to narcotic agent; Z88.8 Allergy status to other drugs, medicaments and biological substances; W18.2XXA Fall in (into) shower or empty bathtub, initial encounter
CPT/HCPCS: 29515; 72131; 72192; 73562; 73610; 96372

== ENCOUNTER 2020-08-15 19:18 | Emergency (ER) | payer SELFPAY ==
[~2020-08-15] VITALS: Ht 162.6 cm; Wt 98.8 kg
[~2020-08-15 19:18] MED LIST changes: +CYCL10TA9 PO
[2020-08-15] MEDS ORDERED: ASPIRIN 81 MG CHEW (CHILDREN'S ASA) PO ONE (19:30)
--- NOTE | 2020-08-15 19:37 | ED Chest Pain ---
General Chief Complaint: Chest Pain Stated Complaint: CHEST PAIN Source: patient Exam Limitations: no limitations History of Present Illness Date Seen by Provider: Aug 15, 2020 Time Seen by Provider: 19:31 Initial Comments 34-year-old female presents with substernal chest pain. She reports his been going on for about an hour. Some mild shortness of breath. Patient is very anxious and seems upset. Patient has been seen previously for chest pain. She has no known prior heart history. Patient reports she is on Toprol does not service for her heart rate or for blood pressure medication. Patient does smoke pack of cigarettes per day. Patient denies any cough, fever, chills, nausea or vomiting. Patient with no other systemic complaints. Allergies and Home Medications Allergies Coded Allergies: codeine (Verified Allergy, Severe, THROAT SWELLING, 01/25/19) ranitidine (Verified Allergy, Severe, TACHYCARDIA, ITCHING, 06/15/18) atropine (Verified Allergy, Mild, HIVES, 06/15/18) hyoscyamine (Verified Allergy, Mild, HIVES, 06/15/18) omeprazole (Verified Allergy, Mild, RASH, 06/15/18) phenobarbital (Verified Allergy, Mild, HIVES, 06/15/18) scopolamine (Verified Allergy, Mild, HIVES, 06/15/18) Home Medications Alprazolam 0.5 Mg Tablet, 0.5 MG PO TID, (Reported) Cyclobenzaprine HCl 10 Mg Tablet, 5 MG PO Q8H PRN for SPASMS Prescribed by: YANELY JENKINS on 12/02/192102 Docusate Sodium 100 Mg Capsule, 100 MG PO BID Prescribed by: FLORY BARBER on 06/18/18 115 Fluoxetine HCl 20 Mg Capsule, 20 MG PO DAILY, (Reported) Ibuprofen 800 Mg Tablet, 800 MG PO Q6HR Prescribed by: FLORY BARBER on 06/18/18 115 Ibuprofen 800 Mg Tablet, 800 MG PO Q8H PRN for PAIN Prescribed by: YANELY JENKINS on 12/02/192102 Oxycodone HCl/Acetaminophen 1 Each Tablet, 1 TAB PO Q4H PRN for PAIN-MODERATE Prescribed by: FLORY BARBER on 06/18/18 1158 Patient Home Medication List Home Medication List Reviewed: Yes Review of Systems Review of Systems Constitutional: No chills, No fever Respiratory: See HPI; Denies Cough Cardiovascular: Chest Pain; Denies Irregular Heart Rate, Denies Lightheadedness, Denies Palpitations, Denies Syncope Gastrointestinal: Denies Abdomen Distended, Denies Diarrhea, Denies Nausea, Denies Vomiting Genitourinary: No Symptoms Reported Musculoskeletal: no symptoms reported Skin: no symptoms reported Psychiatric/Neurological: No Symptoms Reported Endocrine: No Symptoms Reported Hematologic/Lymphatic: No Symptoms Reported Past Yaxmhsk-Rzyvbi-Eznnnt Hx Past Med/Social Hx: Reviewed Nursing Past Med/Soc Hx Patient Social History Type Used: Cigarettes 2nd Hand Smoke Exposure: Yes Recent Foreign Travel: No Contact w/Someone Who Travel: No Recent Hopitalizations: No Seasonal Allergies Seasonal Allergies: Yes Past Medical History Surgeries: Yes Gallbladder, Hysterectomy Respiratory: No Cardiac: Yes (Tachycardia) Hypertension Neurological: No 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: Yes (DUB, CPP, MENORRHAGIA) Female 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: 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, 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 Sexually Transmitted Disease: No HIV/AIDS: No Genitourinary: No Gastrointestinal: Yes Gastroesophageal Reflux, Chronic Constipation, Chronic Diarrhea, Hiatal Hernia Musculoskeletal: Yes Chronic Back Pain Endocrine: No HEENT: No Loss of Vision: Bilateral Cancer: No Psychosocial: Yes Anxiety, Depression Integumentary: No Blood Disorders: No Adverse Reaction/Blood Tranf: No (N/A) Physical Exam Vital Signs Vital Signs - First Documented 08/15/20 19:18 Temp 36.1 Pulse 97 Resp 15 B/P (MAP) 125/71 (89) Pulse Ox 99 O2 Delivery Room Air Capillary Refill : Height, Weight, BMI Height: 5'4.00" Weight: 230lbs. 6.0oz. 104.096299as; 35.00 BMI Method:Stated General Appearance: Anxious Progress/Results/Core Measures Results/Orders Lab Results Laboratory Tests Test 08/15/20 19:37 08/15/20 22:00 Range/Units White Blood Count 14.8 H 4.3-11.0 10^3/uL Red Blood Count 4.68 4.35-5.85 10^6/uL Hemoglobin 13.1 11.5-16.0 G/DL Hematocrit 39 35-52 % Mean Corpuscular Volume 84 80-99 FL Mean Corpuscular Hemoglobin 28 25-34 PG Mean Corpuscular Hemoglobin Concent 33 32-36 G/DL Red Cell Distribution Width 15.5 H 10.0-14.5 % Platelet Count 351 130-400 10^3/uL Mean Platelet Volume 10.5 H 7.4-10.4 FL Immature Granulocyte % (Auto) 0 % Neutrophils (%) (Auto) 72 42-75 % Lymphocytes (%) (Auto) 23 12-44 % Monocytes (%) (Auto) 3 0-12 % Eosinophils (%) (Auto) 1 0-10 % Basophils (%) (Auto) 0 0-10 % Neutrophils # (Auto) 10.6 H 1.8-7.8 X 10^3 Lymphocytes # (Auto) 3.4 1.0-4.0 X 10^3 Monocytes # (Auto) 0.5 0.0-1.0 X 10^3 Eosinophils # (Auto) 0.2 0.0-0.3 10^3/uL Basophils # (Auto) 0.0 0.0-0.1 10^3/uL Immature Granulocyte # (Auto) 0.1 0.0-0.1 10^3/uL Neutrophils % (Manual) 71 % Lymphocytes % (Manual) 24 % Monocytes % (Manual) 3 % Eosinophils % (Manual) 1 % Basophils % (Manual) 1 % Band Neutrophils 0 % Prothrombin Time 12.4 12.2-14.7 SEC INR Comment 0.9 0.8-1.4 Activated Partial Thromboplast Time 26 24-35 SEC Sodium Level 138 135-145 MMOL/L Potassium Level 3.9 3.6-5.0 MMOL/L Chloride Level 104 98-107 MMOL/L Carbon Dioxide Level 22 21-32 MMOL/L Anion Gap 12 5-14 MMOL/L Blood Urea Nitrogen 12 7-18 MG/DL Creatinine 0.86 0.60-1.30 MG/DL Estimat Glomerular Filtration Rate > 60 BUN/Creatinine Ratio 14 Glucose Level 81 70-105 MG/DL Calcium Level 9.6 8.5-10.1 MG/DL Corrected Calcium 9.4 8.5-10.1 MG/DL Magnesium Level 2.2 1.6-2.4 MG/DL Total Bilirubin < 0.2 0.1-1.0 MG/DL Aspartate Amino Transf (AST/SGOT) 17 5-34 U/L Alanine Aminotransferase (ALT/SGPT) 20 0-55 U/L Alkaline Phosphatase 109 40-136 U/L Myoglobin < 21.0 10.0-92.0 NG/ML Troponin I < 0.30 < 0.30 <0.30 NG/ML Pro-B-Type Natriuretic Peptide 45.4 <75.0 PG/ML Total Protein 7.7 6.4-8.2 GM/DL Albumin 4.3 3.2-4.5 GM/DL My Orders Orders - WARREN,SHAHRAM L DO Cbc With Automated Diff (08/15/20) Magnesium (08/15/20) Chest 1 View Ap/Pa Only (08/15/20) Ekg Tracing (08/15/20) Comprehensive Metabolic Panel (08/15/20) Myoglobin Serum (08/15/20) Protime With Inr (08/15/20) Partial Thromboplastin Time (08/15/20) Monitor-Rhythm Ecg Trace Only (08/15/20) Lipid Panel (08/16/20 06:00) Aspirin Chewable Tablet (Baby Aspirin Ch (08/15/20 19:30) Ed Iv/Invasive Line Start (08/15/20:) Troponin I Fs (08/15/20:) Probnp Fs (08/15/20:) Manual Differential (08/15/20 19:37) Lidocaine 2% Viscous 15 Ml (Xylocaine Vi (08/15/20 20:30) Antacid Suspension (Mylanta Suspension (08/15/20 20:30) Ekg Tracing (08/15/20 21:30) Troponin I Fs (08/15/20 21:30) Medications Given in ED Current Medications Medications Dose Ordered Sig/Shahram Route Start Time Stop Time Status Last Admin Dose Admin Al Hydrox/Mg Hydrox/Simethicone 30 ml ONCE ONCE PO 08/15/20 20:30 08/15/20 20:31 DC 08/15/20 20:56 30 ML Aspirin 324 mg ONCE ONCE PO 08/15/20 19:30 08/15/20 19:31 DC 08/15/20 19:35 324 MG Lidocaine HCl 15 ml ONCE ONCE PO 08/15/20 20:30 08/15/20 20:31 DC 08/15/20 20:56 15 ML Vital Signs/I&O 08/15/20 19:18 Temp 36.1 Pulse 97 Resp 15 B/P (MAP) 125/71 (89) Pulse Ox 99 O2 Delivery Room Air Progress Progress Note : Time: 22:49 Progress Note Patient with negative EKG, negative troponin 2, she does have a slight elevation in white count. She has pain in both the chest wall that's reproducible along with a little bit epigastric pain is there chronically. Discussed with her that she may be early in a viral illness. At this time there is no acute findings she is doing much better. Patient will be discharged home in stable condition. I did recommend she follow-up with her primary care provider for further outpatient evaluation since this is her third visit for related symptoms. She reports a previous times she thinks were anxiety. Departure Impression Primary Impression: Chest pain Qualified Codes: R07.9 - Chest pain, unspecified Additional Impression: Viral syndrome Disposition: 01 HOME, SELF-CARE Condition: Stable Departure-Patient Inst. Referrals: SELF,DARRELL KRAMER (PCP/Family) Primary Care Physician Patient Instructions: Chest Pain That Is Not Caused by the Heart (DC), Viral Syndrome (DC), Pleuritic Chest Pain (DC) Add. Discharge Instructions: Follow-up with your primary care provider early next week for recheck in today symptoms or further outpatient evaluation All discharge instructions reviewed with patient and/or family. Voiced understanding. SHAHRAM WARREN DO Aug 15, 2020 19:37
[2020-08-15 19:42] LABS: HEMATOCRIT 39 % (35-52); HEMOGLOBIN 13.1 G/DL (11.5-16.0); MEAN CORPUSCULAR HEMOGLOBIN 28 PG (25-34); MEAN CORPUSCULAR HGB CONC 33 G/DL (32-36); MEAN CORPUSCULAR VOLUME 84 FL (80-99); MEAN PLATELET VOLUME 10.5 FL (7.4-10.4); PLATELET COUNT 351 10^3/uL (130-400); WHITE BLOOD COUNT 14.8 10^3/uL (4.3-11.0)
[2020-08-15 19:43] LABS: BASOPHILS % (AUTO) 0 % (0-10); EOSINOPHILS # (AUTO) 0.2 10^3/uL (0.0-0.3); EOSINOPHILS % (AUTO) 1 % (0-10); LYMPHOCYTES # (AUTO) 3.4 X 10^3 (1.0-4.0); LYMPHOCYTES % (AUTO) 23 % (12-44); MONOCYTES # (AUTO) 0.5 X 10^3 (0.0-1.0); MONOCYTES % (AUTO) 3 % (0-12); NEUTROPHILS # (AUTO) 10.6 X 10^3 (1.8-7.8); NEUTROPHILS % (AUTO) 72 % (42-75)
--- NOTE | 2020-08-15 19:52 | Diagnostic Imaging Report ---
INDICATION: Chest pain. COMPARISON: 01/25/2019. EXAMINATION: Single view of the chest was obtained. FINDINGS: Clear lungs, bilaterally. Heart is normal. There is no pneumothorax but osseous structures are normal. IMPRESSION: Negative chest. Dictated by: Dictated on workstation # [id number]
[2020-08-15 20:05] LABS: INR 0.9 (0.8-1.4); PROTHROMBIN TIME PATIENT 12.4 SEC (12.2-14.7)
[2020-08-15 20:07] LABS: ALANINE AMINOTRANSFERASE 20 U/L (0-55); ALKALINE PHOSPHATASE 109 U/L (40-136); BILIRUBIN,TOTAL < 0.2 MG/DL (0.1-1.0); BUN/CREATININE RATIO 14; CALCIUM 9.6 MG/DL (8.5-10.1); CARBON DIOXIDE 22 MMOL/L (21-32); CHLORIDE 104 MMOL/L (98-107); CREATININE SERUM 0.86 MG/DL (0.60-1.30); GFR ESTIMATED > 60; GLUCOSE 81 MG/DL (70-105); MAGNESIUM 2.2 MG/DL (1.6-2.4); POTASSIUM 3.9 MMOL/L (3.6-5.0); SODIUM 138 MMOL/L (135-145)
[2020-08-15 20:08] LABS: ALBUMIN 4.3 GM/DL (3.2-4.5); TOTAL PROTEIN 7.7 GM/DL (6.4-8.2)
[2020-08-15] MEDS ORDERED: LIDOCAINE 2% VISCOUS 15 ML UDC PO ONE (20:30)
[2020-08-15] MEDS ORDERED: ANTACID SUSP 30 ML UDC (MYLANTA) PO ONE (20:30)
[2020-08-15 21:21] LABS: BAND NEUTROPHILS 0 %; BASOPHILS % (MANUAL) 1 %; EOSINOPHILS % (MANUAL) 1 %; LYMPHOCYTES % (MANUAL) 24 %; MONOCYTES % (MANUAL) 3 %; NEUTROPHILS % (MANUAL) 71 %
[2020-08-15 22:55] VITALS: BP 104/63
== END 2020-08-15 22:55 | disposition home or self-care (01) ==
LOC: EDUNIT# 19:18 → ER FS 19:19
DX: R07.9 Chest pain, unspecified (principal); B34.9 Viral infection, unspecified; F41.9 Anxiety disorder, unspecified; F32.9 Major depressive disorder, single episode, unspecified; G89.29 Other chronic pain; M54.9 Dorsalgia, unspecified; Z77.22 Contact with and (suspected) exposure to environmental tobacco smoke (acute) (chronic); Z88.5 Allergy status to narcotic agent; Z88.6 Allergy status to analgesic agent; Z88.8 Allergy status to other drugs, medicaments and biological substances; Z79.891 Long term (current) use of opiate analgesic
CPT/HCPCS: 36415; 71045; 80053; 83735; 83874; 83880; 84484; 85007; 85027; 85610; 85730; 93005; 93041

== ENCOUNTER 2020-12-22 03:16 | Emergency (ER) | payer BC, OTHER ==
[~2020-12-22] VITALS: Ht 162.6 cm; Wt 88.2 kg
[~2020-12-22 03:16] MED LIST changes: -OXYC-471 PO; +OXYC1TAB11 PO
[2020-12-22 03:25] VITALS: BP 134/68
--- NOTE | 2020-12-22 03:38 | ED General ---
General Chief Complaint: Chest Pain Stated Complaint: CHEST PAIN Nursing Triage Note: pt states chest pain started last night around 1999, pt states pain increases with deep inspiration, has had recent cough/cold symptoms, states hx of hiatal hernia and anxiety Nursing Sepsis Screen: No Definite Risk Source of Information: Patient History of Present Illness Date Seen by Provider: Dec 22, 2020 Time Seen by Provider: 03:20 Initial Comments Patient is a 35-year-old female with history of hiatal hernia and anxiety presents with substernal chest pain radiating to epigastrium and subchondrally bilaterally. Symptoms began hours prior to ED arrival and after eating. Denies nausea vomiting. Sweats. No shortness of breath. Denies tenderness to palpation. States symptoms are slightly worse with deep breathing. No fever chills or sweats. No mid or lower abdominal pain. No flank pain. History of hysterectomy and cholecystectomy. Patient did take Pepto-Bismol and drink well prior to ED arrival without relief of symptoms Timing/Duration: 4-6 Hours Severity: Moderate Modifying Factors: improves with Other Associated Systoms: Other Allergies and Home Medications Allergies Coded Allergies: codeine (Verified Allergy, Severe, THROAT SWELLING, 01/25/19) ranitidine (Verified Allergy, Severe, TACHYCARDIA, ITCHING, 06/15/18) atropine (Verified Allergy, Mild, HIVES, 06/15/18) hyoscyamine (Verified Allergy, Mild, HIVES, 06/15/18) omeprazole (Verified Allergy, Mild, RASH, 06/15/18) phenobarbital (Verified Allergy, Mild, HIVES, 06/15/18) scopolamine (Verified Allergy, Mild, HIVES, 06/15/18) Home Medications Alprazolam 0.5 Mg Tablet, 0.5 MG PO TID, (Reported) Cyclobenzaprine HCl 10 Mg Tablet, 5 MG PO Q8H PRN for SPASMS Prescribed by: YANELY JENKINS on 12/02/192102 Docusate Sodium 100 Mg Capsule, 100 MG PO BID Prescribed by: FLORY BARBER on 06/18/18 115 Fluoxetine HCl 20 Mg Capsule, 20 MG PO DAILY, (Reported) Ibuprofen 800 Mg Tablet, 800 MG PO Q6HR Prescribed by: FLORY BARBER on 06/18/18 1158 Ibuprofen 800 Mg Tablet, 800 MG PO Q8H PRN for PAIN Prescribed by: YANELY JENKINS on 12/02/192102 Oxycodone HCl/Acetaminophen 1 Each Tablet, 1 TAB PO Q4H PRN for PAIN-MODERATE Prescribed by: FLORY BARBER on 06/18/18 1158 Patient Home Medication List Home Medication List Reviewed: Yes Review of Systems Review of Systems Constitutional: see HPI EENTM: see HPI Respiratory: see HPI Cardiovascular: see HPI Gastrointestinal: see HPI Genitourinary: see HPI Musculoskeletal: see HPI Skin: see HPI Psychiatric/Neurological: Anxiety Hematologic/Lymphatic: See HPI Immunological/Allergic: see HPI All Other Systems Reviewed Negative Unless Noted: Yes Past Sgcqldl-Mxsldr-Jqlzak Hx Past Med/Social Hx: Reviewed Nursing Past Med/Soc Hx Patient Social History Alcohol Use: Denies Use Smoking Status: Current Everyday Smoker Type Used: Cigarettes 2nd Hand Smoke Exposure: Yes Recent Infectious Disease Expo: No Recent Hopitalizations: No Seasonal Allergies Seasonal Allergies: Yes Past Medical History Surgeries: Yes Gallbladder, Hysterectomy Respiratory: No Cardiac: Yes (Tachycardia) Hypertension Neurological: No 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: Yes (DUB, CPP, MENORRHAGIA) Female 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: 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, 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 6.0oz. [id number]; 33.00 BMI Method:Stated General Appearance: Anxious, Other Eyes: Bilateral Eye Normal Inspection, Bilateral Eye PERRL, Bilateral Eye EOMI HEENT: PERRL/EOMI, TMs Normal, Pharynx Normal Neck: Full Range of Motion, Non Tender, Supple Respiratory: Chest Non Tender, Lungs Clear Cardiovascular: Regular Rate, Rhythm, No Edema, No Murmur Gastrointestinal: Non Tender, Soft Back: Normal Inspection Extremity: Non Tender, No Calf Tenderness Neurologic/Psychiatric: Alert, Oriented x3 Focused Exam Sepsis Stage: Ruled Out Progress/Results/Core Measures Suspected Sepsis Recent Fever Within 48 Hours: No Infection Criteria Present: None New/Unexplained Altered Menta: No Sepsis Screen: No Definite Risk SIRS Temperature: Pulse: 93 Respiratory Rate: 15 Blood Pressure 134 /68 Mean: 90 Results/Orders My Orders Orders - CECELIA MOORE DO Ekg Tracing (12/22/20 03:32) Antacid Suspension (Mylanta Suspension (12/22/20 03:45) Lidocaine 2% Viscous 15 Ml (Xylocaine Vi (12/22/20 03:45) Chest Decubitus 1 View (12/22/20 03:38) Medications Given in ED Current Medications Medications Dose Ordered Sig/Shahram Route Start Time Stop Time Status Last Admin Dose Admin Al Hydrox/Mg Hydrox/Simethicone 30 ml ONCE ONCE PO 12/22/20 03:45 12/22/20 03:46 DC 12/22/20 03:39 30 ML Lidocaine HCl 5 ml ONCE ONCE PO 12/22/20 03:45 12/22/20 03:46 DC 12/22/20 03:39 5 ML Vital Signs/I&O 12/22/20 12/22/20 03:25 03:25 Temp 36.4 Pulse 93 Resp 15 B/P (MAP) 134/68 (90) Pulse Ox 99 O2 Delivery Room Air Room Air Capillary Refill : Less Than 3 Seconds Blood Pressure Mean: 90 Departure Communication (Admissions) Chest x-ray: To be reviewed EKG: Sinus rhythm without acute ST-T wave changes. Flat T waves present in anterior leads Patient given GI cocktail with significant relief of symptoms. Impression Primary Impression: Chest pain Additional Impression: Hiatal hernia Disposition: 43 DISC/XFER TO A [facility] Condition: Stable/Unchanged Departure-Patient Inst. Referrals: DARRELL BORGES MD (PCP/Family) Primary Care Physician Patient Instructions: Chest Pain, Hiatal Hernia (DC) Add. Discharge Instructions: Please take omeprazole 20 mg twice daily for the next 30 days and use Maalox OTC or Gaviscon OTC as needed for additional relief. Avoid starchy foods, caffeine, alcohol and all NSAIDs. Follow-up with your PCP early next week for reevaluation. Return to the ED if new or worsening symptoms All discharge instructions reviewed with patient and/or family. Voiced understanding. CECELIA MOORE DO Dec 22, 2020 03:38
[2020-12-22] MEDS ORDERED: ANTACID SUSP 30 ML UDC (MYLANTA) PO ONE (03:45)
[2020-12-22] MEDS ORDERED: LIDOCAINE 2% VISCOUS 15 ML UDC PO ONE (03:45)
--- NOTE | 2020-12-22 05:21 | Diagnostic Imaging Report ---
EXAMINATION: Portable erect AP chest at 3:45 AM INDICATION: Chest pain The heart size is within normal limits and stable when compared to 08/15/2020. The lungs are generally clear and appear similar to the prior exam. There is no sign of failure, pneumonia or pleural effusion. As on the prior exam, there is a vague area of increased density along the periphery of the left mid lung and left lung base. This is probably secondary to superimposition of the overlying chest/breast tissue. The mediastinum is not widened. The osseous structures are intact. IMPRESSION: There is no evidence for active disease. Dictated by: Dictated on workstation # [id number]
== END 2020-12-22 03:55 | disposition home or self-care (01) ==
LOC: EDUNIT# 03:16 → ER FS 03:20
DX: R07.9 Chest pain, unspecified (principal); K44.9 Diaphragmatic hernia without obstruction or gangrene; F41.9 Anxiety disorder, unspecified; G89.29 Other chronic pain; M54.9 Dorsalgia, unspecified; F32.9 Major depressive disorder, single episode, unspecified; F17.210 Nicotine dependence, cigarettes, uncomplicated; Z88.5 Allergy status to narcotic agent; Z88.8 Allergy status to other drugs, medicaments and biological substances; Z79.891 Long term (current) use of opiate analgesic
CPT/HCPCS: 71045

== ENCOUNTER 2021-03-05 23:11 | Emergency (ER) | payer BC ==
[~2021-03-05] VITALS: Ht 160 cm; Wt 83.0 kg
[2021-03-05] MEDS ORDERED: ANTACID SUSP 30 ML UDC (MYLANTA) PO ONE (23:30)
[2021-03-05] MEDS ORDERED: FAMOTIDINE 20 MG (PEPCID) TABLET PO ONE (23:30)
[2021-03-06] MEDS ORDERED: ONDANSETRON 4 MG (ZOFRAN) ORAL DISSOLVE TAB PO STA (00:04)
[2021-03-06] MEDS ORDERED: morphine INJ 10 MG/ML 1ML (SYR OR VIAL) IM STA (00:04)
[2021-03-06] MEDS ORDERED: PROCHLORPERAZINE 10 MG/2ML INJ (COMPAZINE) IV ONE (00:30)
[2021-03-06] MEDS ORDERED: HOLD METFORMIN - RECEIVED CONTRAST 20 ML VIAL IV SCH (00:45)
[2021-03-06] MEDS ORDERED: NS 100 ML (IVPB) BAG IV ONE (00:45)
[2021-03-06] MEDS ORDERED: IOHEXOL 350 MG/ML 100 ML (OMNIPAQUE 350) VIAL IV ONE (00:45)
--- NOTE | 2021-03-06 01:13 | ED Abdominal Pain ---
General Chief Complaint: Abdominal/GI Problems Stated Complaint: ABD PAIN Nursing Triage Note: Pt in per POV with C/o epigastric pain thinks its her hernia. Reports taking lots of pepto, mylanta and ibuprofen. States this has been a problem for weeks, has not seen her PCP for complaint and that she has not been following her diet correctly to keep symptoms down. Sepsis Screen: No Definite Risk Source of Information: Patient History of Present Illness Date Seen by Provider: March 06, 2021 Time Seen by Provider: 22:45 Initial Comments Patient is a 35-year-old female with history of chronic intermittent epigastric pain and hiatal hernia who presents with persistent epigastric pain radiating to her chest for the past several hours. Pain is described as moderate to severe is progressive and continuous. Is described as aching. Does not radiate to the back. It is not associated with shortness of breath fever chills cough or sweats. Patient does report nausea without vomiting. No bloody stools dark tarry stools. No flank pain. No urinary frequency urgency dysuria. No other acute symptoms or complaints. Previous cholecystectomy. Timing/Duration: 1-3 Hours Severity/Quality: Dull Location: Epigastric Radiation: Epigastric Activities at Onset: Other Modifying Factors: Improves With Other Associated Symptoms: Other Allergies and Home Medications Allergies Coded Allergies: codeine (Verified Allergy, Severe, THROAT SWELLING, 01/25/19) ranitidine (Verified Allergy, Severe, TACHYCARDIA, ITCHING, 06/15/18) atropine (Verified Allergy, Mild, HIVES, 06/15/18) hyoscyamine (Verified Allergy, Mild, HIVES, 06/15/18) omeprazole (Verified Allergy, Mild, RASH, 06/15/18) phenobarbital (Verified Allergy, Mild, HIVES, 06/15/18) scopolamine (Verified Allergy, Mild, HIVES, 06/15/18) Home Medications Alprazolam 0.5 Mg Tablet, 0.5 MG PO TID, (Reported) Cyclobenzaprine HCl 10 Mg Tablet, 5 MG PO Q8H PRN for SPASMS Prescribed by: YANELY JENKINS on 12/02/192102 Docusate Sodium 100 Mg Capsule, 100 MG PO BID Prescribed by: FLORY BARBER on 06/18/18 1158 Fluoxetine HCl 20 Mg Capsule, 20 MG PO DAILY, (Reported) Ibuprofen 800 Mg Tablet, 800 MG PO Q6HR Prescribed by: FLORY BARBER on 06/18/18 1158 Ibuprofen 800 Mg Tablet, 800 MG PO Q8H PRN for PAIN Prescribed by: YANELY JEKNINS on 12/02/19 210 Oxycodone HCl/Acetaminophen 1 Each Tablet, 1 TAB PO Q4H PRN for PAIN-MODERATE Prescribed by: FLORY BARBER on 06/18/18 1158 Patient Home Medication List Home Medication List Reviewed: Yes Review of Systems Review of Systems Constitutional: see HPI EENTM: See HPI Respiratory: See HPI Cardiovascular: See HPI Gastrointestinal: See HPI Genitourinary: See HPI Musculoskeletal: see HPI Skin: see HPI Psychiatric/Neurological: See HPI Endocrine: See HPI Hematologic/Lymphatic: See HPI Past Zrcuhpc-Llpsrk-Cpiyxb Hx Past Med/Social Hx: Reviewed Nursing Past Med/Soc Hx Patient Social History Alcohol Use: Denies Use Smoking Status: Current Everyday Smoker Type Used: Cigarettes 2nd Hand Smoke Exposure: Yes Recent Infectious Disease Expo: No Recent Hopitalizations: No Seasonal Allergies Seasonal Allergies: Yes Past Medical History Surgeries: Yes Gallbladder, Hysterectomy Respiratory: No Cardiac: Yes (Tachycardia) Hypertension Neurological: No 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: Yes (DUB, CPP, MENORRHAGIA) Female 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: 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, 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 Sexually Transmitted Disease: No HIV/AIDS: No Genitourinary: No Gastrointestinal: Yes Gastroesophageal Reflux, Chronic Constipation, Chronic Diarrhea, Hiatal Hernia Musculoskeletal: Yes Chronic Back Pain Endocrine: No HEENT: No Loss of Vision: Bilateral Cancer: No Psychosocial: Yes Anxiety, Depression Integumentary: No Blood Disorders: No Adverse Reaction/Blood Tranf: No (N/A) Physical Exam Vital Signs Vital Signs - First Documented 03/05/21 23:15 Temp 36.5 Pulse 108 Resp 16 B/P (MAP) 126/81 (96) Pulse Ox 99 O2 Delivery Room Air Capillary Refill : Less Than 3 Seconds Height/Weight/BMI Height: 5'4.00" Weight: 230lbs. 6.0oz. 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, no motor/sensory deficits, alert, oriented x 3 Skin: normal color Lymphatic: no adenopathy Focused Exam Sepsis Stage: Ruled Out Lactate Level 03/06/21 01:40: Lactic Acid Level 0.90 Lactic Acid Level Laboratory Tests Test 03/06/21 01:40 Lactic Acid Level 0.90 MMOL/L (0.50-2.00) Progress/Results/Core Measures Results/Orders Lab Results Laboratory Tests Test 03/06/21 00:40 03/06/21 01:40 Range/Units White Blood Count 20.7 H 4.3-11.0 10^3/uL Red Blood Count 4.65 4.35-5.85 10^6/uL Hemoglobin 13.0 11.5-16.0 G/DL Hematocrit 41 35-52 % Mean Corpuscular Volume 87 80-99 FL Mean Corpuscular Hemoglobin 28 25-34 PG Mean Corpuscular Hemoglobin Concent 32 32-36 G/DL Red Cell Distribution Width 15.5 H 10.0-14.5 % Platelet Count 319 130-400 10^3/uL Mean Platelet Volume 11.3 H 7.4-10.4 FL Immature Granulocyte % (Auto) 1 % Neutrophils (%) (Auto) 73 42-75 % Lymphocytes (%) (Auto) 21 12-44 % Monocytes (%) (Auto) 4 0-12 % Eosinophils (%) (Auto) 1 0-10 % Basophils (%) (Auto) 0 0-10 % Neutrophils # (Auto) 15.2 H 1.8-7.8 X 10^3 Lymphocytes # (Auto) 4.4 H 1.0-4.0 X 10^3 Monocytes # (Auto) 0.8 0.0-1.0 X 10^3 Eosinophils # (Auto) 0.2 0.0-0.3 10^3/uL Basophils # (Auto) 0.1 0.0-0.1 10^3/uL Immature Granulocyte # (Auto) 0.1 0.0-0.1 10^3/uL Neutrophils % (Manual) 74 % Lymphocytes % (Manual) 24 % Monocytes % (Manual) 1 % Eosinophils % (Manual) 1 % Sodium Level 137 135-145 MMOL/L Potassium Level 4.0 3.6-5.0 MMOL/L Chloride Level 102 98-107 MMOL/L Carbon Dioxide Level 26 21-32 MMOL/L Anion Gap 9 5-14 MMOL/L Blood Urea Nitrogen 13 7-18 MG/DL Creatinine 0.94 0.60-1.30 MG/DL Estimat Glomerular Filtration Rate > 60 BUN/Creatinine Ratio 14 Glucose Level 99 70-105 MG/DL Calcium Level 9.7 8.5-10.1 MG/DL Corrected Calcium 9.8 8.5-10.1 MG/DL Total Bilirubin < 0.2 0.1-1.0 MG/DL Aspartate Amino Transf (AST/SGOT) 17 5-34 U/L Alanine Aminotransferase (ALT/SGPT) 20 0-55 U/L Alkaline Phosphatase 119 40-136 U/L Total Protein 7.1 6.4-8.2 GM/DL Albumin 3.9 3.2-4.5 GM/DL Lipase 32 8-78 U/L Lactic Acid Level 0.90 0.50-2.00 MMOL/L My Orders Orders - CECELIA MOORE DO Famotidine Tablet (Pepcid Tablet) (03/05/21 23:30) Antacid Suspension (Mylanta Suspension (03/05/21 23:30) Chest Pa/Lat (2 View) (03/06/21 00:04) Morphine Injection (Morphine Injection (03/06/21 00:04) Ondansetron Oral Dissolve Tab (Zofran (03/06/21 00:04) Cbc With Automated Diff (03/06/21 00:30) Comprehensive Metabolic Panel (03/06/21 00:30) Ct Abdomen/Pelvis W (03/06/21 00:30) Prochlorperazine Injection (Compazine In (03/06/21 00:30) Iohexol Injection (Omnipaque 350 Mg/Ml 1 (03/06/21 00:45) Received Contrast (Hold Metformin- Contr (03/06/21 00:45) Ns (Ivpb) (Sodium Chloride 0.9% Ivpb Bag (03/06/21 00:45) Manual Differential (03/06/21 00:40) Lipase (03/06/21 01:27) Lactic Acid Analyzer (03/06/21 01:27) Ns Iv 1000 Ml (Sodium Chloride 0.9%) (03/06/21 01:30) Blood Culture (03/06/21 01:27) Piperacillin Sodium/Tazobactam (Zosyn Vi (03/06/21 01:30) Blood Culture (03/06/21 01:50) Medications Given in ED Current Medications Medications Dose Ordered Sig/Shahram Route Start Time Stop Time Status Last Admin Dose Admin Al Hydrox/Mg Hydrox/Simethicone 30 ml ONCE ONCE PO 03/05/21 23:30 03/05/21 23:31 DC 03/05/21 23:42 30 ML Famotidine 20 mg ONCE ONCE PO 03/05/21 23:30 03/05/21 23:31 DC 03/05/21 23:42 20 MG Iohexol 100 ml ONCE ONCE IV 03/06/21 00:45 03/06/21 00:46 DC 03/06/21 00:50 100 ML Piperacillin Sod/ Tazobactam Sod 4.5 gm/Sodium Chloride 100 ml @ 200 mls/hr ONCE ONCE IV 03/06/21 01:30 03/06/21 01:59 DC 03/06/21 02:01 200 MLS/HR Prochlorperazine Edisylate 10 mg ONCE ONCE IV 03/06/21 00:30 03/06/21 00:32 DC 03/06/21 01:04 10 MG Sodium Chloride 100 ml ONCE ONCE IV 03/06/21 00:45 03/06/21 00:46 DC 03/06/21 00:50 100 ML Vital Signs/I&O 03/05/21 23:15 Temp 36.5 Pulse 108 Resp 16 B/P (MAP) 126/81 (96) Pulse Ox 99 O2 Delivery Room Air Blood Pressure Mean: 96 Departure Communication (Admissions) Chest x-ray: No acute cardiopulmonary disease. CT abdomen pelvis: Static left kidney stone. No acute disease. GI cocktail given with partial relief of symptoms. IV narcotic pain medication given with temporary relief of symptoms. Patient with elevated white blood cell count possibly related to stress reaction. IV fluids, antibiotics given. Imaging and labs reviewed. Etiology of patient's symptoms are unclear. We will continue supportive and therapeutic care with home monitoring and close PCP follow-up. Return precautions reviewed. Patient verbalizes understanding agreement with discharge instructions prior to departure. Impression Primary Impression: Abdominal pain Disposition: 01 HOME, SELF-CARE Condition: Stable Departure-Patient Inst. Decision time for Depature: 02:37 Referrals: SELF,DARRELL KRAMER (PCP/Family) Primary Care Physician Patient Instructions: Severe Abdominal Pain, Adult (DC) Add. Discharge Instructions: You were evaluated in the emergency department for upper abdominal pain. CT and lab were performed. The exact cause of your symptoms has not been determined. Please drink clear liquids only for the next 6 to 12 hours then gradually increase to a bland diet as tolerated. Take newly prescribed medications as directed. Follow-up with your PCP tomorrow for reevaluation. Return to the ED if new or worsening symptoms. All discharge instructions reviewed with patient and/or family. Voiced understanding. Scripts Metronidazole (Flagyl) 500 Mg Tablet 500 MG PO TID, #21 TAB Prov: CECELIA MOORE DO 03/06/21 Ondansetron (Ondansetron Odt) 4 Mg Tab.rapdis 4 MG PO Q6H, #10 TAB Prov: CECELIA MOORE DO 03/06/21 Hydrocodone/Acetaminophen (Hydrocodone-Acetamin 5-325 mg) 1 Each Tablet 1 TAB PO Q4H PRN for PAIN-MODERATE (5-7), #5 TAB Prov: CECELIA MOORE DO 03/06/21 CECELIA MOORE DO March 06, 2021 01:13
[2021-03-06 01:14] LABS: BASOPHILS # (AUTO) 0.1 10^3/uL (0.0-0.1); BASOPHILS % (AUTO) 0 % (0-10); EOSINOPHILS # (AUTO) 0.2 10^3/uL (0.0-0.3); EOSINOPHILS % (AUTO) 1 % (0-10); HEMATOCRIT 41 % (35-52); LYMPHOCYTES # (AUTO) 4.4 X 10^3 (1.0-4.0); LYMPHOCYTES % (AUTO) 21 % (12-44); MEAN CORPUSCULAR HEMOGLOBIN 28 PG (25-34); MEAN CORPUSCULAR HGB CONC 32 G/DL (32-36); MEAN CORPUSCULAR VOLUME 87 FL (80-99); MEAN PLATELET VOLUME 11.3 FL (7.4-10.4); MONOCYTES # (AUTO) 0.8 X 10^3 (0.0-1.0); MONOCYTES % (AUTO) 4 % (0-12); NEUTROPHILS # (AUTO) 15.2 X 10^3 (1.8-7.8); NEUTROPHILS % (AUTO) 73 % (42-75); PLATELET COUNT 319 10^3/uL (130-400); WHITE BLOOD COUNT 20.7 10^3/uL (4.3-11.0)
[2021-03-06] MEDS ORDERED: PIPERACILLIN SODIUM/TAZOBACTAM 4.5 GM in NS (IVPB) 100 ML IV ONE (01:30)
[2021-03-06] MEDS ORDERED: NS IV 1000 ML 1,000 ML IV SCH (01:30)
[2021-03-06 01:33] LABS: ALANINE AMINOTRANSFERASE 20 U/L (0-55); ALBUMIN 3.9 GM/DL (3.2-4.5); ALKALINE PHOSPHATASE 119 U/L (40-136); BILIRUBIN,TOTAL < 0.2 MG/DL (0.1-1.0); BUN/CREATININE RATIO 14; CALCIUM 9.7 MG/DL (8.5-10.1); CARBON DIOXIDE 26 MMOL/L (21-32); CHLORIDE 102 MMOL/L (98-107); CREATININE SERUM 0.94 MG/DL (0.60-1.30); GFR ESTIMATED > 60; GLUCOSE 99 MG/DL (70-105); SODIUM 137 MMOL/L (135-145); TOTAL PROTEIN 7.1 GM/DL (6.4-8.2)
[2021-03-06 01:34] LABS: EOSINOPHILS % (MANUAL) 1 %; LYMPHOCYTES % (MANUAL) 24 %; MONOCYTES % (MANUAL) 1 %; NEUTROPHILS % (MANUAL) 74 %
[2021-03-06] MEDS ORDERED: ACHD5005 PO (02:40)
[2021-03-06] MEDS ORDERED: ONDA4TAB11 PO (02:40)
[2021-03-06] MEDS ORDERED: METR500T PO (02:40)
[2021-03-06 02:53] VITALS: BP 114/78
--- NOTE | 2021-03-06 05:27 | Diagnostic Imaging Report ---
INDICATION: Epigastric pain PA and lateral chest Heart size and pulmonary vascularity are normal. Lungs are clear. There are no effusions or pneumothoraces. IMPRESSION: Negative chest Dictated by: Dictated on workstation # [id number]
--- NOTE | 2021-03-06 06:58 | Diagnostic Imaging Report ---
PROCEDURE: CT abdomen and pelvis with contrast. TECHNIQUE: Multiple contiguous axial images were obtained through the abdomen and pelvis after administration of intravenous contrast. Auto Exposure Controls were utilized during the CT exam to meet ALARA standards for radiation dose reduction. All CT scans use one or more of the following dose optimizing techniques: automated exposure control, MA and/or KvP adjustment based on patient size and exam type or iterative reconstruction. INDICATION: Pelvic pain. History of hernia. COMPARISON: CT pelvis 12/02/2019. FINDINGS: Lung bases are clear. Cholecystectomy is noted. Liver shows fatty changes. Bile ducts are not dilated. Pancreas and spleen are normal. The adrenal glands and kidneys are normal. The stomach and small bowel are not distended. The colon shows normal stool and gas pattern. The appendix shows a small appendicolith otherwise is normal. There is no free air or free fluid. No pelvic masses. No evidence of inguinal hernias or ventral hernias. No bony abnormalities. IMPRESSION: 1. Fatty change of liver. 2. No acute changes are noted within the abdomen. These findings are concordant with the preliminary report. Dictated by: Dictated on workstation # [id number]
== END 2021-03-06 02:53 | disposition home or self-care (01) ==
LOC: EDUNIT# 23:11 → ER FS 23:13
DX: R10.13 Epigastric pain (principal); I10 Essential (primary) hypertension; F41.9 Anxiety disorder, unspecified; F32.9 Major depressive disorder, single episode, unspecified; G89.29 Other chronic pain; M54.9 Dorsalgia, unspecified; F17.210 Nicotine dependence, cigarettes, uncomplicated; Z88.5 Allergy status to narcotic agent; Z88.8 Allergy status to other drugs, medicaments and biological substances; Z79.891 Long term (current) use of opiate analgesic; Z79.899 Other long term (current) drug therapy
CPT/HCPCS: 36415; 71046; 74177; 80053; 83605; 83690; 85007; 85027; 87040

== ENCOUNTER 2021-05-10 22:02 | Emergency (ER) | payer SELFPAY ==
[~2021-05-10] VITALS: Ht 162.6 cm; Wt 83.5 kg
[~2021-05-10 22:02] MED LIST changes: +ACHD5005 PO; +METR500T PO; +ONDA4TAB11 PO
[2021-05-10 22:18] VITALS: BP 127/83
[2021-05-10] MEDS ORDERED: NS IV 1000 ML 1,000 ML IV STA (22:18)
--- NOTE | 2021-05-10 22:20 | ED General ---
General Chief Complaint: Cardiac/General Problems Stated Complaint: FAST HEARTRATE,DIZZY Source of Information: Patient History of Present Illness Date Seen by Provider: May 10, 2021 Time Seen by Provider: 22:04 Initial Comments 35-year-old female presenting with concerns about feeling like her heart was racing and she was dizzy. She had tried checking her pulse at home and felt like it was staying in the 110s to 120s. She was not sure if this was due to her anxiety or if something else was going on. The uncertainty was making her more anxious. She denies having any increased shortness of breath, cough, fever, chills, abdominal pain, chest pain, headache, throat pain, burning with urination, vaginal discharge, vaginal bleeding. She states that she knows that she has a kidney stone and has some blood in her urine. This has been a chronic issue for her. Timing/Duration: 12-24 Hours Associated Systoms: No Chest Pain, No Cough, No Diaphoresis, No Fever/Chills, No Headaches, No Loss of Appetite; Malaise; No Nausea/Vomiting, No Rash, No Seizure, No Shortness of Air, No Syncope, No Weakness Allergies and Home Medications Allergies Coded Allergies: codeine (Verified Allergy, Severe, THROAT SWELLING, 01/25/19) ranitidine (Verified Allergy, Severe, TACHYCARDIA, ITCHING, 06/15/18) atropine (Verified Allergy, Mild, HIVES, 06/15/18) hyoscyamine (Verified Allergy, Mild, HIVES, 06/15/18) omeprazole (Verified Allergy, Mild, RASH, 06/15/18) phenobarbital (Verified Allergy, Mild, HIVES, 06/15/18) scopolamine (Verified Allergy, Mild, HIVES, 06/15/18) Home Medications Alprazolam 0.5 Mg Tablet, 0.5 MG PO TID, (Reported) Cyclobenzaprine HCl 10 Mg Tablet, 5 MG PO Q8H PRN for SPASMS Prescribed by: YANELY JENKINS on 12/02/192102 Docusate Sodium 100 Mg Capsule, 100 MG PO BID Prescribed by: FLORY BARBER on 06/18/18 115 Fluoxetine HCl 20 Mg Capsule, 20 MG PO DAILY, (Reported) Hydrocodone/Acetaminophen 1 Each Tablet, 1 TAB PO Q4H PRN for PAIN-MODERATE (5- 7) Prescribed by: CECELIA MOORE on 03/06/21 024 Ibuprofen 800 Mg Tablet, 800 MG PO Q6HR Prescribed by: FLORY BARBER on 06/18/18 1158 Ibuprofen 800 Mg Tablet, 800 MG PO Q8H PRN for PAIN Prescribed by: YANELY JENKINS on 12/02/19 210 Metronidazole 500 Mg Tablet, 500 MG PO TID Prescribed by: CECELIA MOORE on 03/06/21 024 Ondansetron 4 Mg Tab.rapdis, 4 MG PO Q6H Prescribed by: CECELIA MOORE on 03/06/21 024 Oxycodone HCl/Acetaminophen 1 Each Tablet, 1 TAB PO Q4H PRN for PAIN-MODERATE Prescribed by: FLORY BARBER on 06/18/18 115 Patient Home Medication List Home Medication List Reviewed: Yes Review of Systems Review of Systems Constitutional: No chills, No fever; malaise EENTM: no symptoms reported Respiratory: no symptoms reported Cardiovascular: see HPI, palpitations Gastrointestinal: no symptoms reported Genitourinary: see HPI Musculoskeletal: no symptoms reported Skin: no symptoms reported Psychiatric/Neurological: Anxiety Past Hbdcphx-Zpkufh-Gdjfjk Hx Patient Social History Tobacco Use?: Yes Tobacco type used: Cigarettes Smoking Status: Current Everyday Smoker Substance use?: No Alcohol Use?: No Pt feels they are or have been: No Seasonal Allergies Seasonal Allergies: Yes Past Medical History Surgeries: Yes Gallbladder, Hysterectomy Respiratory: No Cardiac: Yes (Tachycardia) Hypertension Neurological: No 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: Yes (DUB, CPP, MENORRHAGIA) Female 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: 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, 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 Sexually Transmitted Disease: No HIV/AIDS: No Genitourinary: No Gastrointestinal: Yes Gastroesophageal Reflux, Chronic Constipation, Chronic Diarrhea, Hiatal Hernia Musculoskeletal: Yes Chronic Back Pain Endocrine: No HEENT: No Loss of Vision: Bilateral Cancer: No Psychosocial: Yes Anxiety, Depression Integumentary: No Blood Disorders: No Adverse Reaction/Blood Tranf: No (N/A) Physical Exam Vital Signs Vital Signs - First Documented 05/10/21 22:18 Temp 36.6 Pulse 100 Resp 17 B/P (MAP) 127/83 (98) O2 Delivery Room Air Capillary Refill : Less Than 3 Seconds Height, Weight, BMI Height: 5'4.00" Weight: 230lbs. 6.0oz. 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 Norm as Tested Skin: Normal Color, Warm/Dry; No Rash Progress/Results/Core Measures Suspected Sepsis SIRS Temperature: Pulse: Respiratory Rate: Laboratory Tests 05/10/21 22:19: White Blood Count 13.9H Blood Pressure / Mean: Laboratory Tests 05/10/21 22:19: Creatinine 0.89, INR Comment 0.9, Platelet Count 292, Total Bilirubin 0.2 Results/Orders Lab Results Laboratory Tests Test 05/10/21 22:19 05/10/21 22:52 Range/Units White Blood Count 13.9 H 4.3-11.0 10^3/uL Red Blood Count 4.48 4.35-5.85 10^6/uL Hemoglobin 12.6 11.5-16.0 G/DL Hematocrit 39 35-52 % Mean Corpuscular Volume 86 80-99 FL Mean Corpuscular Hemoglobin 28 25-34 PG Mean Corpuscular Hemoglobin Concent 33 32-36 G/DL Red Cell Distribution Width 14.8 H 10.0-14.5 % Platelet Count 292 130-400 10^3/uL Mean Platelet Volume 10.6 H 7.4-10.4 FL Neutrophils (%) (Auto) 73 42-75 % Lymphocytes (%) (Auto) 22 12-44 % Monocytes (%) (Auto) 3 0-12 % Eosinophils (%) (Auto) 2 0-10 % Basophils (%) (Auto) 0 0-10 % Neutrophils # (Auto) 10.1 H 1.8-7.8 X 10^3 Lymphocytes # (Auto) 3.0 1.0-4.0 X 10^3 Monocytes # (Auto) 0.5 0.0-1.0 X 10^3 Eosinophils # (Auto) 0.2 0.0-0.3 10^3/uL Basophils # (Auto) 0.0 0.0-0.1 10^3/uL Immature Granulocyte # (Auto) 0.0 0.0-0.1 10^3/uL Prothrombin Time 12.3 12.2-14.7 SEC INR Comment 0.9 0.8-1.4 Activated Partial Thromboplast Time 27 24-35 SEC Sodium Level 137 135-145 MMOL/L Potassium Level 4.3 3.6-5.0 MMOL/L Chloride Level 103 98-107 MMOL/L Carbon Dioxide Level 24 21-32 MMOL/L Anion Gap 10 5-14 MMOL/L Blood Urea Nitrogen 12 7-18 MG/DL Creatinine 0.89 0.60-1.30 MG/DL Estimat Glomerular Filtration Rate > 60 BUN/Creatinine Ratio 13 Glucose Level 100 70-105 MG/DL Calcium Level 9.3 8.5-10.1 MG/DL Corrected Calcium 9.2 8.5-10.1 MG/DL Magnesium Level 2.2 1.6-2.4 MG/DL Total Bilirubin 0.2 0.1-1.0 MG/DL Aspartate Amino Transf (AST/SGOT) 12 5-34 U/L Alanine Aminotransferase (ALT/SGPT) 15 0-55 U/L Alkaline Phosphatase 110 40-136 U/L Troponin I < 0.30 <0.30 NG/ML Pro-B-Type Natriuretic Peptide 19.9 <75.0 PG/ML Total Protein 7.2 6.4-8.2 GM/DL Albumin 4.1 3.2-4.5 GM/DL Lipase 25 8-78 U/L Urine Color YELLOW Urine Clarity CLEAR Urine pH 6.5 5-9 Urine Specific [place] 1.010 L 1.016-1.022 Urine Protein NEGATIVE NEGATIVE Urine Glucose (UA) NEGATIVE NEGATIVE Urine Ketones NEGATIVE NEGATIVE Urine Nitrite NEGATIVE NEGATIVE Urine Bilirubin NEGATIVE NEGATIVE Urine Urobilinogen 0.2 < = 1.0 MG/DL Urine Leukocyte Esterase NEGATIVE NEGATIVE Urine RBC (Auto) TRACE-I NEGATIVE Urine RBC 2-5 H /HPF Urine WBC 5-10 H /HPF Urine Squamous Epithelial Cells 10-25 H /HPF Urine Crystals NONE /LPF Urine Bacteria MODERATE H /HPF Urine Casts NONE /LPF Urine Mucus NEGATIVE /LPF Urine Culture Indicated YES My Orders Orders - ENYART,YANELY E MD Cbc With Automated Diff (05/10/21 22:18) Magnesium (05/10/21 22:18) Ekg Tracing (05/10/21:18) Comprehensive Metabolic Panel (05/10/21 22:18) Protime With Inr (05/10/21:18) Partial Thromboplastin Time (05/10/21 22:18) Monitor-Rhythm Ecg Trace Only (05/10/21:18) Ed Iv/Invasive Line Start (05/10/21:18) Lipase (05/10/21 22:18) Troponin I Fs (05/10/21 22:18) Probnp Fs (05/10/21:18) Ns Iv 1000 Ml (Sodium Chloride 0.9%) (05/10/21:18) Ua Culture If Indicated (05/10/21:32) Urine Bedside (05/10/21 22:32) Urine Culture (05/10/21 22:52) Vital Signs/I&O 05/10/21:18 Temp 36.6 Pulse 100 Resp 17 B/P (MAP) 127/83 (98) O2 Delivery Room Air 05/11/21 00:00 Intake Total 1000 ml Balance 1000 ml Capillary Refill : Less Than 3 Seconds Progress Note #1: Progress Note Check labs as well as electrocardiogram and watch cardiac telemetry monitoring. The electrocardiogram does not show any acute significant abnormality. Give IV fluid 1 L bolus for hydration while waiting on electrolytes and labs Progress Note #2: Progress Note Labs appear stable without acute significant abnormality. She has mild elevation of white blood cell count but that appears to be chronic for her. Her urinalysis did show trace amount of blood but she has a known kidney stone. Her urine also showed some bacteria but no nitrites or leukocyte esterase. Since patient does not have any UTI symptoms will defer antibiotic unless the culture shows that she needs an antibiotic. Patient was in agreement with this. Her heart rate had improved with treatment here in the ED. Counseled on follow- up with the clinic and may need an outpatient Holter monitor for continued symptoms. Advised that some of this could be from anxiety as well and it would be difficult to determine how much could be from anxiety versus dehydration v ersus an underlying arrhythmia without further testing ECG Initial ECG Impression Date: May 10, 2021 Initial ECG Impression Time: 22:24 Initial ECG Rate: 97 Initial ECG Rhythm: Normal Sinus Initial ECG Comparisson: No Previous ECG Available Comment Normal sinus rhythm with a heart rate of 97 bpm. OK interval [address] elevation. QT interval 351 ms with a QTc interval 446 ms. There is no prior tracing available for comparison. Departure Impression Primary Impression: Palpitations Additional Impression: Dehydration Disposition: 01 HOME, SELF-CARE Condition: Improved Departure-Patient Inst. Decision time for Depature: 23:28 Referrals: SELFDARRELL MD (PCP/Family) Primary Care Physician Patient Instructions: Dehydration, Adult ED, Palpitations Add. Discharge Instructions: Stay well hydrated and drink plenty of water and electrolyte drinks Follow up with clinic and if you have continued symptoms then check with your doctor for a Holter monitor to see if you have any change in your heart rhythm All discharge instructions reviewed with patient and/or family. Voiced understanding. YANELY JENKINS MD May 10, 2021 22:20
[2021-05-10 22:35] LABS: HEMATOCRIT 39 % (35-52); HEMOGLOBIN 12.6 G/DL (11.5-16.0); LYMPHOCYTES % (AUTO) 22 % (12-44); MEAN CORPUSCULAR HEMOGLOBIN 28 PG (25-34); MEAN CORPUSCULAR HGB CONC 33 G/DL (32-36); MEAN CORPUSCULAR VOLUME 86 FL (80-99); MEAN PLATELET VOLUME 10.6 FL (7.4-10.4); NEUTROPHILS % (AUTO) 73 % (42-75); PLATELET COUNT 292 10^3/uL (130-400); WHITE BLOOD COUNT 13.9 10^3/uL (4.3-11.0)
[2021-05-10 22:36] LABS: BASOPHILS % (AUTO) 0 % (0-10); EOSINOPHILS # (AUTO) 0.2 10^3/uL (0.0-0.3); EOSINOPHILS % (AUTO) 2 % (0-10); MONOCYTES # (AUTO) 0.5 X 10^3 (0.0-1.0); MONOCYTES % (AUTO) 3 % (0-12); NEUTROPHILS # (AUTO) 10.1 X 10^3 (1.8-7.8)
[2021-05-10 22:49] LABS: INR 0.9 (0.8-1.4); PROTHROMBIN TIME PATIENT 12.3 SEC (12.2-14.7)
[2021-05-10 22:50] LABS: ALANINE AMINOTRANSFERASE 15 U/L (0-55); ALBUMIN 4.1 GM/DL (3.2-4.5); ALKALINE PHOSPHATASE 110 U/L (40-136); BILIRUBIN,TOTAL 0.2 MG/DL (0.1-1.0); BUN/CREATININE RATIO 13; CALCIUM 9.3 MG/DL (8.5-10.1); CARBON DIOXIDE 24 MMOL/L (21-32); CHLORIDE 103 MMOL/L (98-107); CREATININE SERUM 0.89 MG/DL (0.60-1.30); GFR ESTIMATED > 60; GLUCOSE 100 MG/DL (70-105); LIPASE 25 U/L (8-78); MAGNESIUM 2.2 MG/DL (1.6-2.4); POTASSIUM 4.3 MMOL/L (3.6-5.0); SODIUM 137 MMOL/L (135-145); TOTAL PROTEIN 7.2 GM/DL (6.4-8.2)
[2021-05-10 23:02] LABS: BACTERIA,URINE MODERATE /HPF; BILIRUBIN,URINE NEGATIVE (NEGATIVE); CLARITY,URINE CLEAR; COLOR,URINE YELLOW; GLUCOSE, URINE (UA) NEGATIVE (NEGATIVE); KETONES,URINE NEGATIVE (NEGATIVE); LEUKOCYTE ESTERASE ,URINE NEGATIVE (NEGATIVE); NITRITE,URINE NEGATIVE (NEGATIVE); PH,URINE 6.5 (5-9); PROTEIN,URINE NEGATIVE (NEGATIVE)
== END 2021-05-10 23:35 | disposition home or self-care (01) ==
LOC: EDUNIT# 22:02 → ER FS 22:03
DX: R00.2 Palpitations (principal); E86.0 Dehydration; I10 Essential (primary) hypertension; F41.9 Anxiety disorder, unspecified; F32.9 Major depressive disorder, single episode, unspecified; G89.29 Other chronic pain; M54.9 Dorsalgia, unspecified; F17.210 Nicotine dependence, cigarettes, uncomplicated; Z79.899 Other long term (current) drug therapy; Z79.891 Long term (current) use of opiate analgesic
CPT/HCPCS: 36415; 80053; 81000; 83690; 83735; 83880; 84484; 85025; 85610; 85730; 87088; 93041

== ENCOUNTER 2021-07-22 05:50 | Emergency (ER) | payer SELFPAY ==
[~2021-07-22] VITALS: Ht 162 cm; Wt 80.6 kg
--- OUTSIDE RECORDS SUMMARY | 2021-07-22 05:56 | XMS REPORT | Clinical Summary ---
Author Author [facility] Organization [facility] Address Unknown Phone Unavailable Care Team Providers Care Recreational Leader Name Role Phone Scarlett Harris MD Unavailable Unverified, Unverified PCP Unavailable Source Comments Some departments are not documenting in the electronic medical record. If you d o not see the information that you expected, contact Release of Information in [facility] [employer] Information Management department at [phone] for further assistan ce in locating additional records.[facility] Allergies Comments Active Allergy Reactions Severity Noted Date Apwycdgmo-Skhyji-Ajpqcrjw HIVES 06/16/2011 -Scop Acetaminophen-Codeine EDEMA 06/16/2011 Medications End Date Status Medication Sig Dispensed Refills Start Date Active predniSONE (DELTASONE) 20 Take 20 mg by 0 mg PO tablet mouth daily. 2 tabs w/ each meal on day 1. 2 tabs w/ breakfast and lunch on day 2. 2 tabs with breakfast and 1 w/ lunch on day 3. 2 tabs w/ breakfast on day 4. 1 tab w/ breakfast on day 5. 1/2 tab w/ breakfast on days 6 and 7. Active Problems Not on file Medical History Medical History Date Comments Pyelonephritis Family History Medical History Relation Name Comments Heart Disease Father Arthritis Maternal Grandfather Arthritis Maternal Grandmother Arthritis Paternal Grandfather Arthritis Paternal Grandmother Relation Name Status Comments Father Maternal Grandfather Maternal Grandmother Paternal Grandfather Paternal Grandmother Social History Date Tobacco Use Types Packs/Day Years Used Quit: 11/16/2010 Former Smoker Smokeless Tobacco: Never Used Comments Alcohol Use Standard Drinks/Week No 0 (1 standard drink = 0.6 o z pure alcohol) Sex Assigned at Date Recorded Not on file Last Filed Vital Signs Reading Time Taken Comments Vital Sign 120/76 06/16/2011 9:57 AM CDT Blood Pressure 83 06/16/2011 9:57 AM CDT Pulse 36.3 C (97.4 F) 06/16/2011 9:57 AM CDT Temperature 12 06/16/2011 9:57 AM CDT Respiratory Rate - - Oxygen Saturation - - Inhaled Oxygen Concentration 79.7 kg (175 lb 9.6 oz) 06/16/2011 9:57 AM CDT Weight 161.3 cm (5' 3.5") 06/16/2011 9:57 AM CDT Height 30.62 06/16/2011 9:57 AM CDT Body Mass Index Plan of Treatment Health Maintenance Due Date Last Done Comments HIV SCREENING 1999 DTAP/TDAP VACCINES (1 - 2002 Tdap) HEPATITIS C SCREENING 2002 PHYSICAL (COMPREHENSIVE) 2002 EXAM CERVICAL CANCER SCREENING 2005 INFLUENZA VACCINE 08/02/2021 Results Not on filefrom Last 3 Months
--- OUTSIDE RECORDS SUMMARY | 2021-07-22 05:56 | XMS REPORT | Clinical Summary ---
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
[2021-07-22] MEDS ORDERED: fentaNYL INJ 100 MCG/2 ML AMP IVP STA (06:12)
[2021-07-22] MEDS ORDERED: KETOROLAC 30 MG/ML VIAL IVP STA (06:12)
[2021-07-22] MEDS ORDERED: ONDANSETRON 4 MG/2 ML (SDV) Z0FRAN IVP STA (06:12)
[2021-07-22] MEDS ORDERED: NS IV 1000 ML 1,000 ML IV STA (06:12)
--- NOTE | 2021-07-22 06:22 | ED Abdominal Pain ---
General Chief Complaint: Abdominal/GI Problems Stated Complaint: RIGHT SIDED ABD PAIN Nursing Triage Note: PT REPORTS TO ER FROM HOME WITH MOTHER IN POV. PT COMPLAINS OF ABDOMINAL PAIN ONSET 0430 HRS TODAY. PT STATES THAT IT STARTS MIDLINE AND RADIATES AROUND TO RIGHT SIDE OF ABDOMIN. PT HAS HX OF GALLBLADDER REMOVAL, HIETAL HERNIA, AND HYSTERECTOMY. PT DENIES ANY NVD SINCE ONSET. Source of Information: Patient, Old Records History of Present Illness Date Seen by Provider: Jul 22, 2021 Time Seen by Provider: 05:55 Initial Comments 35 yo female presents with complaints of sudden onset epigastric pain wrapping around the right side of abdomen. She felt fine and denies having any issues or concerns when she went to bed. She woke up at 4:30 AM and started having pain in the epigastric area that wraps around her right side of her abdomen. She denies seeing any blood in her urine. She denied having any diarrhea or bloody stools. She had a hysterectomy and a cholecystectomy in the past. She knows that she has a hiatal hernia but states that this pain feels different. She has some mild nausea with the severe pain but otherwise no vomiting. She denies any fever or chills. She denies any ill contacts. She tried taking ibuprofen at home but it was not helping with the pain. Timing/Duration: 1-3 Hours Severity/Quality: Severe, Cramping, Sharp, Stabbing Location: Generalized Abdomen (But worse in the epigastric area and wrapping around her right flank) Activities at Onset: Other (Urinating) Modifying Factors: Worsens With Movement, Worsens With Palpation Associated Symptoms: No Back Pain, No Chest Pain, No Diaphoresis, No Fever/Chills, No Fatigue, No Headache, No Heartburn, No Shortness of Air, No Swelling/Mass in Abdomen, No Syncope, No Weakness Allergies and Home Medications Allergies Coded Allergies: codeine (Verified Allergy, Severe, THROAT SWELLING, 01/25/19) ranitidine (Verified Allergy, Severe, TACHYCARDIA, ITCHING, 06/15/18) atropine (Verified Allergy, Mild, HIVES, 06/15/18) hyoscyamine (Verified Allergy, Mild, HIVES, 06/15/18) omeprazole (Verified Allergy, Mild, RASH, 06/15/18) phenobarbital (Verified Allergy, Mild, HIVES, 06/15/18) scopolamine (Verified Allergy, Mild, HIVES, 06/15/18) Patient Home Medication List Home Medication List Reviewed: Yes Alprazolam (Xanax) 0.5 Mg Tablet, 0.5 MG PO TID, (Reported) Entered as Reported by: JANIS PRINCE on 06/15/18 1412 Bupropion HCl (Wellbutrin Sr) 100 Mg Tablet.er, 100 MG PO DAILY, (Reported) Entered as Reported by: BRICE MORRISSEY on 07/22/21 1200 Hydrocodone Bit/Acetaminophen (HYDROcodone/APAP 5 MG/325 MG TAB) 1 Tab Tab, 1 TAB PO Q8H PRN for PAIN-MODERATE (5-7) Prescribed by: ASHLEY TIPTON on 07/22/21 1410 Discontinued Medications Cyclobenzaprine HCl (Cyclobenzaprine HCl) 10 Mg Tablet, 5 MG PO Q8H PRN for SPASMS Discontinued Reason: No Longer Taking Prescribed by: YANELY JENKINS on 12/02/192102 Docusate Sodium (Docusate Sodium) 100 Mg Capsule, 100 MG PO BID Discontinued Reason: No Longer Taking Prescribed by: FLORY BARBER on 06/18/18 115 Fluoxetine HCl (Prozac) 20 Mg Capsule, 20 MG PO DAILY, (Reported) Discontinued Reason: No Longer Taking Entered as Reported by: JANIS PRINCE on 06/15/18 141 Hydrocodone/Acetaminophen (Hydrocodone-Acetamin 5-325 mg) 1 Each Tablet, 1 TAB PO Q4H PRN for PAIN-MODERATE (5-7) Discontinued Reason: No Longer Taking Prescribed by: CECELIA MOORE on 03/06/21 024 Ibuprofen (Ibuprofen) 800 Mg Tablet, 800 MG PO Q6HR Discontinued Reason: No Longer Taking Prescribed by: FLORY BARBER on 06/18/18 115 Ibuprofen (Ibuprofen) 800 Mg Tablet, 800 MG PO Q8H PRN for PAIN Discontinued Reason: No Longer Taking Prescribed by: YANELY JENKINS on 12/02/192102 Metronidazole (Flagyl) 500 Mg Tablet, 500 MG PO TID Discontinued Reason: No Longer Taking Prescribed by: CECELIA MOORE on 03/06/21 024 Ondansetron (Ondansetron Odt) 4 Mg Tab.rapdis, 4 MG PO Q6H Discontinued Reason: No Longer Taking Prescribed by: CECELIA MOORE on 03/06/21 0240 Oxycodone HCl/Acetaminophen (Oxycodone-Acetaminophen 5-325) 1 Each Tablet, 1 TAB PO Q4H PRN for PAIN-MODERATE Discontinued Reason: No Longer Taking Prescribed by: FLORY BARBER on 06/18/18 1158 Review of Systems Review of Systems Constitutional: see HPI EENTM: No Symptoms Reported Respiratory: Cough (Mild cough) Cardiovascular: No Symptoms Reported Gastrointestinal: See HPI Genitourinary: Denies Burning, Denies Frequency; Flank Pain (Right flank pain epigastric pain started after urinating) Musculoskeletal: no symptoms reported Skin: no symptoms reported Psychiatric/Neurological: Anxiety Past Jwaydcf-Bgvzwx-Cjvlir Hx Patient Social History Tobacco Use?: No Smoking Status: Never a Smoker Substance use?: No Alcohol Use?: No Pt feels they are or have been: No Immunizations Up To Date First/Initial COVID19 Vaccinat: NA Seasonal Allergies Seasonal Allergies: Yes Past Medical History Surgeries: Yes Gallbladder, Hysterectomy Respiratory: No Cardiac: Yes (Tachycardia) Hypertension Neurological: No 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: Yes (DUB, CPP, MENORRHAGIA) Female 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: 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, 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 Sexually Transmitted Disease: No HIV/AIDS: No Genitourinary: No Gastrointestinal: Yes Gastroesophageal Reflux, Chronic Constipation, Chronic Diarrhea, Hiatal Hernia Musculoskeletal: Yes Chronic Back Pain Endocrine: No HEENT: No Loss of Vision: Bilateral Cancer: No Psychosocial: Yes Anxiety, Depression Integumentary: No Blood Disorders: No Adverse Reaction/Blood Tranf: No (N/A) Physical Exam Vital Signs Vital Signs - First Documented 07/22/21 05:58 Temp 36.3 Pulse 110 Resp 20 B/P (MAP) 132/104 (113) Pulse Ox 97 O2 Delivery Room Air Capillary Refill : Less Than 3 Seconds Height/Weight/BMI Height: 5'4.00" Weight: 230lbs. 6.0oz. [id number]; 30.00 BMI Method:Stated General Appearance: moderate distress (Patient appears anxious and is complaining of abdominal pain. She occasionally appears tearful) HEENT: PERRL/EOMI Neck: non-tender, full range of motion, supple, normal inspection Respiratory: chest non-tender, lungs clear, normal breath sounds, no respiratory distress, no accessory muscle use Cardiovascular: normal peripheral pulses, tachycardia Gastrointestinal: soft, no pulsatile mass, abnormal bowel sounds (Hypoactive), guarding (Epigastric guarding); No rebound; tenderness (Diffuse abdominal tenderness worse in the epigastric and right flank) Rectal: deferred Extremities: normal range of motion, normal capillary refill Back: no CVA tenderness, no vertebral tenderness Neurologic/Psychiatric: alert, oriented x 3 Skin: normal color, warm/dry Images 1 - Diffuse abdominal pain worse in the epigastric and along the right flank with palpation Progress/Results/Core Measures Results/Orders Lab Results Laboratory Tests Test 07/22/21 06:25 07/22/21 07:07 Range/Units White Blood Count 17.7 H 4.3-11.0 10^3/uL Red Blood Count 4.57 3.80-5.11 10^6/uL Hemoglobin 13.1 11.5-16.0 g/dL Hematocrit 39 35-52 % Mean Corpuscular Volume 86 80-99 fL Mean Corpuscular Hemoglobin 29 25-34 pg Mean Corpuscular Hemoglobin Concent 33 32-36 g/dL Red Cell Distribution Width 14.4 10.0-14.5 % Platelet Count 257 130-400 10^3/uL Mean Platelet Volume 11.5 9.0-12.2 fL Immature Granulocyte % (Auto) 1 % Neutrophils (%) (Auto) 84 H 42-75 % Lymphocytes (%) (Auto) 11 L 12-44 % Monocytes (%) (Auto) 4 0-12 % Eosinophils (%) (Auto) 1 0-10 % Basophils (%) (Auto) 0 0-10 % Neutrophils # (Auto) 17.8 H 1.8-7.8 X 10^3 Lymphocytes # (Auto) 1.9 1.0-4.0 X 10^3 Monocytes # (Auto) 0.7 0.0-1.0 X 10^3 Eosinophils # (Auto) 0.1 0.0-0.3 10^3/uL Basophils # (Auto) 0.0 0.0-0.1 10^3/uL Immature Granulocyte # (Auto) 0.1 0.0-0.1 10^3/uL Neutrophils % (Manual) 77 % Lymphocytes % (Manual) 16 % Monocytes % (Manual) 5 % Eosinophils % (Manual) 1 % Basophils % (Manual) 0 % Band Neutrophils 1 % Sodium Level 136 135-145 MMOL/L Potassium Level 3.7 3.6-5.0 MMOL/L Chloride Level 104 98-107 MMOL/L Carbon Dioxide Level 23 21-32 MMOL/L Anion Gap 9 5-14 MMOL/L Blood Urea Nitrogen 20 H 7-18 MG/DL Creatinine 0.77 0.60-1.30 MG/DL Estimat Glomerular Filtration Rate 85 BUN/Creatinine Ratio 26 Glucose Level 100 70-105 MG/DL Calcium Level 9.3 8.5-10.1 MG/DL Corrected Calcium 9.2 8.5-10.1 MG/DL Total Bilirubin 0.2 0.1-1.0 MG/DL Aspartate Amino Transf (AST/SGOT) 12 5-34 U/L Alanine Aminotransferase (ALT/SGPT) 11 0-55 U/L Alkaline Phosphatase 93 40-136 U/L Total Protein 7.3 6.4-8.2 GM/DL Albumin 4.1 3.2-4.5 GM/DL Lipase 39 8-78 U/L Urine Color PALE YELLOW Urine Clarity CLEAR Urine pH 6.0 5-9 Urine Specific [place] 1.010 L 1.016-1.022 Urine Protein NEGATIVE NEGATIVE Urine Glucose (UA) NEGATIVE NEGATIVE Urine Ketones NEGATIVE NEGATIVE Urine Nitrite NEGATIVE NEGATIVE Urine Bilirubin NEGATIVE NEGATIVE Urine Urobilinogen 0.2 < = 1.0 MG/DL Urine Leukocyte Esterase NEGATIVE NEGATIVE Urine RBC (Auto) NEGATIVE NEGATIVE Urine RBC NONE /HPF Urine WBC 0-2 /HPF Urine Squamous Epithelial Cells 2-5 /HPF Urine Crystals NONE /LPF Urine Bacteria NEGATIVE /HPF Urine Casts NONE /LPF Urine Mucus NEGATIVE /LPF Urine Culture Indicated NO My Orders Orders - YANELY JENKINS MD Comprehensive Metabolic Panel (07/22/21 06:03) Lipase (07/22/21 06:03) Ua Culture If Indicated (07/22/21 06:03) Ed Iv/Invasive Line Start (07/22/21 06:03) Cbc With Automated Diff (07/22/21 06:03) Ct Abdomen/Pelvis Wo (07/22/21 06:03) Ns Iv 1000 Ml (Sodium Chloride 0.9%) (07/22/21 06:12) Ketorolac Injection (Toradol Injection) (07/22/21 06:12) Ondansetron Injection (Zofran Injectio (07/22/21 06:12) Fentanyl Inj (Sublimaze Injection) (07/22/21 06:12) Manual Differential (07/22/21 06:25) Vital Signs/I&O 07/22/21 07/22/21 05:58 07:36 Temp 36.3 Pulse 110 90 Resp 20 16 B/P (MAP) 132/104 (113) 133/83 Pulse Ox 97 98 O2 Delivery Room Air Room Air Blood Pressure Mean: 113 Progress Progress Note #1: Progress Note Obtain basic labs and urinalysis. Ordered lipase as well. CT scan without contrast to help evaluate for kidney stones. With the sudden onset of her pain and severity pain kidney stones or bowel obstruction or ovarian cyst would be in the differential. Flare of her Hiatal hernia may cause some of her epigastric pain but should not be causing pain in her diffuse abdomen. Give IVF for hydration, Zofran for nausea, Toradol for pain, Fentanyl for pain. Would order Bentyl and Protonix but she has allergies to related medicines so will hold off on ordering these as they may have cross reaction with her other allergies. She states her mom had driven her here so she does have a ride home after the narcotic pain medicine, if everything looks ok and she can be discharged to home. Progress Note #2: Time: 06:38 Progress Note Call from Radiologist to advise of Appendicitis findings with appendix at 10 mm with localized inflammation. No perforation or free air. 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 Discussed with patient and her mother about the results and asked if there were other hospitals that they would want me to check with. Patient stated that she would prefer to go to [place] if at all possible. Will check with the surgeon will be on-call today, Dr. Tipton, and see if this is something he could see through the same day surgery center. 0655 Dr. Tipton accepted the patient to come to the same day surgery center for acute appendicitis. When asked if he wanted me to administer antibiotics or wait until patient is there he advised to wait until the patient got to the surgery center since she has not had a fever. Patient updated and will arrange for patient to go to the same day surgery center at [facility]. Patient plans to have her mother drive her instead of taking an ambulance. She states that her pain is 0 currently after medication. She still has pain with palpation and movement but states that she prefers to go by private vehicle. She understands the risk that she could have rupture of her appendix increased abdominal pain develop sepsis or have a percent of patients with worsening condition could not be managed in a private vehicle but still insists on transport by private vehicle. Diagnostic Imaging Diagonstic Imaging: CT Plain Films/CT/US/NM/MRI: abdomen, pelvis Comments [facility]. [place], [place] NAME: ZEUS BULLARD [facility] REC#: [id number] PT STATUS: REG ER : 1985 PHYSICIAN: YANELY JENKINS MD ADMIT DATE: 07/22/21/ER FS Draft Date of Exam:07/22/21 CT ABDOMEN/PELVIS WO PROCEDURE: CT abdomen and pelvis without contrast. TECHNIQUE: Multiple contiguous axial images were obtained through the abdomen and pelvis without the use of intravenous contrast. Auto Exposure Controls were utilized during the CT exam to meet ALARA standards for radiation dose reduction. INDICATION: Right lower abdominal pain. CORRELATION STUDY: 03/06/2021 FINDINGS: LOWER THORAX: Clear. LIVER: Perhaps very mild fatty infiltration without focal lesion. GALLBLADDER: Cholecystectomy. No bile duct dilatation. SPLEEN: Unremarkable. Small splenule. PANCREAS: Unremarkable. ADRENAL GLANDS: Unremarkable. KIDNEYS: Several small nonobstructing bilateral renal stones. No ureteric calcification or obstructive uropathy. ABDOMINAL AORTA: Unremarkable, nonaneurysmal. GASTROINTESTINAL TRACT: The appendix projects inferiorly to the cecum in the right lower quadrant and is mildly dilated to approximately 1 cm with associated periappendiceal inflammatory changes. No significant free air or abscess formation. URINARY BLADDER: Unremarkable. REPRODUCTIVE: Hysterectomy. OSSEOUS STRUCTURES: No acute abnormality. OTHER: None. IMPRESSION: 1. Findings appear positive for acute early or low-grade appendicitis. No abscess or significant free intraperitoneal air. Telephone call has been made to the [place], 6:40 AM. Dictated on workstation # [id number] Dict: 07/22/21 0632 Trans: 07/22/21 0658 [facility] [id number] Interpreted by: DAMASO OSMAN DO Electronically signed by: Reviewed: Reviewed by Me, Discussed w/Radiologist Departure Impression Primary Impression: Acute appendicitis Qualified Codes: K35.30 - Acute appendicitis with localized peritonitis, without perforation or gangrene Disposition: 30 STILL A PATIENT Condition: Stable Departure-Patient Inst. Referrals: DARRELL BORGES MD (PCP/Family) Primary Care Physician YANELY JENKINS MD Jul 22, 2021 06:22
--- NOTE | 2021-07-22 06:59 | Diagnostic Imaging Report ---
PROCEDURE: CT abdomen and pelvis without contrast. TECHNIQUE: Multiple contiguous axial images were obtained through the abdomen and pelvis without the use of intravenous contrast. Auto Exposure Controls were utilized during the CT exam to meet ALARA standards for radiation dose reduction. INDICATION: Right lower abdominal pain. CORRELATION STUDY: 03/06/2021 FINDINGS: LOWER THORAX: Clear. LIVER: Perhaps very mild fatty infiltration without focal lesion. GALLBLADDER: Cholecystectomy. No bile duct dilatation. SPLEEN: Unremarkable. Small splenule. PANCREAS: Unremarkable. ADRENAL GLANDS: Unremarkable. KIDNEYS: Several small nonobstructing bilateral renal stones. No ureteric calcification or obstructive uropathy. ABDOMINAL AORTA: Unremarkable, nonaneurysmal. GASTROINTESTINAL TRACT: The appendix projects inferiorly to the cecum in the right lower quadrant and is mildly dilated to approximately 1 cm with associated periappendiceal inflammatory changes. No significant free air or abscess formation. URINARY BLADDER: Unremarkable. REPRODUCTIVE: Hysterectomy. OSSEOUS STRUCTURES: No acute abnormality. OTHER: None. IMPRESSION: 1. Findings appear positive for acute early or low-grade appendicitis. No abscess or significant free intraperitoneal air. Telephone call has been made to the [place] [facility], 6:40 AM. Dictated by: Dictated on workstation # [id number]
[2021-07-22 07:04] LABS: HEMATOCRIT 39 % (35-52); HEMOGLOBIN 13.1 g/dL (11.5-16.0); MEAN CORPUSCULAR HEMOGLOBIN 29 pg (25-34); MEAN CORPUSCULAR HGB CONC 33 g/dL (32-36); MEAN CORPUSCULAR VOLUME 86 fL (80-99); WHITE BLOOD COUNT 17.7 10^3/uL (4.3-11.0)
[2021-07-22 07:05] LABS: BASOPHILS % (AUTO) 0 % (0-10); EOSINOPHILS # (AUTO) 0.1 10^3/uL (0.0-0.3); EOSINOPHILS % (AUTO) 1 % (0-10); LYMPHOCYTES # (AUTO) 1.9 X 10^3 (1.0-4.0); LYMPHOCYTES % (AUTO) 11 % (12-44); MEAN PLATELET VOLUME 11.5 fL (9.0-12.2); MONOCYTES # (AUTO) 0.7 X 10^3 (0.0-1.0); MONOCYTES % (AUTO) 4 % (0-12); NEUTROPHILS # (AUTO) 17.8 X 10^3 (1.8-7.8); NEUTROPHILS % (AUTO) 84 % (42-75); PLATELET COUNT 257 10^3/uL (130-400)
[2021-07-22 07:20] LABS: CREATININE SERUM 0.77 MG/DL (0.60-1.30); POTASSIUM 3.7 MMOL/L (3.6-5.0)
[2021-07-22 07:21] LABS: ALBUMIN 4.1 GM/DL (3.2-4.5); BILIRUBIN,TOTAL 0.2 MG/DL (0.1-1.0); CALCIUM 9.3 MG/DL (8.5-10.1); TOTAL PROTEIN 7.3 GM/DL (6.4-8.2)
[2021-07-22 07:36] VITALS: BP 133/83
[2021-07-22 07:36] LABS: BAND NEUTROPHILS 1 %; LYMPHOCYTES % (MANUAL) 16 %; NEUTROPHILS % (MANUAL) 77 %
[2021-07-22 07:37] LABS: BASOPHILS % (MANUAL) 0 %; EOSINOPHILS % (MANUAL) 1 %; MONOCYTES % (MANUAL) 5 %
[2021-07-22 07:37] LABS: BILIRUBIN,URINE NEGATIVE (NEGATIVE); CLARITY,URINE CLEAR; COLOR,URINE PALE YELLOW; GLUCOSE, URINE (UA) NEGATIVE (NEGATIVE); KETONES,URINE NEGATIVE (NEGATIVE); LEUKOCYTE ESTERASE ,URINE NEGATIVE (NEGATIVE); NITRITE,URINE NEGATIVE (NEGATIVE); PROTEIN,URINE NEGATIVE (NEGATIVE)
[2021-07-22 07:38] LABS: BACTERIA,URINE NEGATIVE /HPF; WBC,URINE 0-2 /HPF
[2021-07-22] MEDS ORDERED: BUPR100T7 PO (12:00)
[2021-07-22] MEDS ORDERED: ACHD5005 PO (14:09)
[2021-07-23] MEDS ORDERED: ACHD5005 PO (17:09)
== END 2021-07-22 07:36 | disposition other institution (70) ==
LOC: EDUNIT# 05:50 → ER FS 05:53
DX: K35.80 Unspecified acute appendicitis (principal); I10 Essential (primary) hypertension; G89.29 Other chronic pain; M54.9 Dorsalgia, unspecified; F41.9 Anxiety disorder, unspecified; F32.9 Major depressive disorder, single episode, unspecified; K59.09 Other constipation; Z79.891 Long term (current) use of opiate analgesic; Z79.899 Other long term (current) drug therapy; Z90.49 Acquired absence of other specified parts of digestive tract; Z88.5 Allergy status to narcotic agent
CPT/HCPCS: 36415; 74176; 80053; 81000; 83690; 85007; 85027

== ENCOUNTER 2021-07-22 08:41 | Day surgery (SDC) | payer SELFPAY ==
[2021-07-22] VITALS (10 sets, daily range): BP systolic 106–127; BP diastolic 65–87
[~2021-07-22] VITALS: Ht 162.6 cm; Wt 80.6 kg
--- NOTE | 2021-07-22 10:05 | Consultation - Surgery ---
GIL RIVAS 07/22/21 1005: History of Present Illness History of Present Illness Patient Consulted On(nadege/time) 07/22/21 09:59 Date Seen by Provider: Jul 22, 2021 Time Seen by Provider: 09:30 Reason for Visit: Appendicitis History of Present Illness Patient is a 35 y/o female who initially presented to the [facility] ED for abdominal pain. She arrived to [facility] at about 0915. She reports the pain began around 0400 this morning in her epigastric region and it moved down to her RLQ and suprapubic area. Patient says the pain is sharp and has been constant since 0400. She says the pain medicine from the hopsital makes it better. She reports using the bathroom makes the pain worse. Patient reports associated nausea but denies vomiting. She says that the pain is a 5/10 with the pain medicine and a 10/10 without the pain medicine. Patient is taking Wellbutrin and Xanax for anxi ety. Patient reports she has smoked 1/2 pack a day for 16 years. Patient has tenderness over McBurney's point with a positive Rovsing sing. Patient has a negative psoas sign but reports it hurt to flex her leg earlier. Allergies and Home Medications Allergies Coded Allergies: codeine (Verified Allergy, Severe, THROAT SWELLING, 01/25/19) ranitidine (Verified Allergy, Severe, TACHYCARDIA, ITCHING, 06/15/18) atropine (Verified Allergy, Mild, HIVES, 06/15/18) hyoscyamine (Verified Allergy, Mild, HIVES, 06/15/18) omeprazole (Verified Allergy, Mild, RASH, 06/15/18) phenobarbital (Verified Allergy, Mild, HIVES, 06/15/18) scopolamine (Verified Allergy, Mild, HIVES, 06/15/18) Patient Home Medication List Alprazolam (Xanax) 0.5 Mg Tablet, 0.5 MG PO TID, (Reported) Entered as Reported by: JANIS PRINCE on 06/15/18 1412 Last Action: Last Taken Edited Bupropion HCl (Wellbutrin Sr) 100 Mg Tablet.er, 100 MG PO DAILY, (Reported) Entered as Reported by: BRICE MORRISSEY on 07/22/21 1200 Last Action: New Order Discontinued Medications Cyclobenzaprine HCl (Cyclobenzaprine HCl) 10 Mg Tablet, 5 MG PO Q8H PRN for SPASMS Discontinued Reason: No Longer Taking Prescribed by: YANELY JENKINS on 12/02/192102 Last Action: Discontinued Docusate Sodium (Docusate Sodium) 100 Mg Capsule, 100 MG PO BID Discontinued Reason: No Longer Taking Prescribed by: FLORY BARBER on 06/18/181157 Last Action: Discontinued Fluoxetine HCl (Prozac) 20 Mg Capsule, 20 MG PO DAILY, (Reported) Discontinued Reason: No Longer Taking Entered as Reported by: JANIS PRINCE on 06/15/18 1412 Last Action: Discontinued Hydrocodone/Acetaminophen (Hydrocodone-Acetamin 5-325 mg) 1 Each Tablet, 1 TAB PO Q4H PRN for PAIN-MODERATE (5-7) Discontinued Reason: No Longer Taking Prescribed by: CECELIA MOORE on 03/06/21239 Last Action: Discontinued Ibuprofen (Ibuprofen) 800 Mg Tablet, 800 MG PO Q6HR Discontinued Reason: No Longer Taking Prescribed by: FLORY BARBER on 06/18/181157 Last Action: Discontinued Ibuprofen (Ibuprofen) 800 Mg Tablet, 800 MG PO Q8H PRN for PAIN Discontinued Reason: No Longer Taking Prescribed by: YANELY JENKINS on 12/02/192102 Last Action: Discontinued Metronidazole (Flagyl) 500 Mg Tablet, 500 MG PO TID Discontinued Reason: No Longer Taking Prescribed by: CECELIA MOORE on 03/06/21239 Last Action: Discontinued Ondansetron (Ondansetron Odt) 4 Mg Tab.rapdis, 4 MG PO Q6H Discontinued Reason: No Longer Taking Prescribed by: CECELIA MOORE on 03/06/21239 Last Action: Discontinued Oxycodone HCl/Acetaminophen (Oxycodone-Acetaminophen 5-325) 1 Each Tablet, 1 TAB PO Q4H PRN for PAIN-MODERATE Discontinued Reason: No Longer Taking Prescribed by: FLORY BARBER on 06/18/181157 Last Action: Discontinued Past Gnyluta-Ktjjbh-Msozkz Hx Patient Social History Smoking Status: Current Everyday Smoker (1/2 pack a day for 16 years) Cigarettes Per Day: 10 Type Used: Cigarettes 2nd Hand Smoke Exposure: Yes Recent Hopitalizations: No Substance type: Nicotine Seasonal Allergies Seasonal Allergies: Yes Surgeries History of Surgeries: Yes Surgeries: Gallbladder, Hysterectomy Respiratory History of Respiratory Disorde: No Cardiovascular History of Cardiac Disorders: Yes (Tachycardia) Cardiac Disorders: Hypertension Neurological History of Neurological Disord: No 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 System Hx 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: Yes (DUB, CPP, MENORRHAGIA) Sexually Transmitted Disease: No HIV/AIDS: No Female 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: 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, 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 [employer] History: Hysterectomy Genitourinary History of Genitourinary Disor: No Gastrointestinal History of Gastrointestinal Di: Yes Gastrointestinal Disorders: Gastroesophageal Reflux, Chronic Constipation, Chronic Diarrhea, Hiatal Hernia Musculoskeletal History of Musculoskeletal Dis: Yes Musculoskeletal Disorders: Chronic Back Pain Endocrine History of Endocrine Disorders: No HEENT History of HEENT Disorders: No Loss of Vision: Bilateral Cancer History of Cancer: No Psychosocial History of Psychiatric Problem: Yes Behavioral Health Disorders: Anxiety, Depression Integumentary History of Skin or Integumenta: No Blood Transfusions History of Blood Disorders: No Adverse Reaction to a Blood Tr: No (N/A) Family Medical History Significant Family History: Heart Disease (MVP in father), Hypertension (Mother), Other Conditions/Hx (Thyroid problems in mother) Review of Systems-General Constitutional: No chills, No fever EENTM: No blurred vision, No vision loss Respiratory: cough; No short of breath Cardiovascular: chest pain (Due to GERD); No palpitations Gastrointestinal: abdominal pain (Epigastric to RLQ and suprapubic), constipation, heartburn, nausea; No vomiting Genitourinary: No dysuria, No frequency Musculoskeletal: back pain Psychiatric/Neurological: Anxiety, Depressed Physical Exam-General Problems Physical Exam Vital Signs Capillary Refill : General Appearance: mild distress (Pain in moderate pain when changing positions) Eyes: Bilateral Eye PERRL, Bilateral Eye EOMI HEENT: PERRL/EOMI Neck: non-tender, supple, normal inspection Respiratory: chest non-tender, lungs clear, normal breath sounds, no respiratory distress, no accessory muscle use Cardiovascular: normal peripheral pulses, regular rate, rhythm, no murmur Peripheral Pulses: 2+ Radial Pulses (R), 2+ Radial Pulses (L) Gastrointestinal: normal bowel sounds, soft, tenderness (Epigastric, RLQ, and suprapubic) Extremities: non-tender, normal capillary refill Neurologic/Psychiatric: 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 Acute appendicitis 2. GERD 3. Anxiety and depression 1. Patient has been NPO since 0430 this morning. Appendectomy to be performed. 2. Continue taking medicine as prescribed. ASHLEY TIPTON DO 07/22/21 1403: History of Present Illness History of Present Illness Time Seen by Provider: 10:02 History of Present Illness Surgery asked to consult regarding appendicitis, sent down from [facility]. Pt reports RLQ pain, better with pain meds. Decreased appetite because of pain. Driving down the bumps in road hurt her abdomen. Allergies and Home Medications Allergies Coded Allergies: codeine (Verified Allergy, Severe, THROAT SWELLING, 01/25/19) ranitidine (Verified Allergy, Severe, TACHYCARDIA, ITCHING, 06/15/18) atropine (Verified Allergy, Mild, HIVES, 06/15/18) hyoscyamine (Verified Allergy, Mild, HIVES, 06/15/18) omeprazole (Verified Allergy, Mild, RASH, 06/15/18) phenobarbital (Verified Allergy, Mild, HIVES, 06/15/18) scopolamine (Verified Allergy, Mild, HIVES, 06/15/18) Patient Home Medication List Home Medication List Reviewed: Yes Alprazolam (Xanax) 0.5 Mg Tablet, 0.5 MG PO TID, (Reported) Entered as Reported by: JANIS PRINCE on 06/15/18 1412 Last Action: Last Taken Edited Bupropion HCl (Wellbutrin Sr) 100 Mg Tablet.er, 100 MG PO DAILY, (Reported) Entered as Reported by: BRICE MORRISSEY on 07/22/21 1200 Last Action: New Order Discontinued Medications Cyclobenzaprine HCl (Cyclobenzaprine HCl) 10 Mg Tablet, 5 MG PO Q8H PRN for SPASMS Discontinued Reason: No Longer Taking Prescribed by: YANELY JENKINS on 12/02/19 210 Last Action: Discontinued Docusate Sodium (Docusate Sodium) 100 Mg Capsule, 100 MG PO BID Discontinued Reason: No Longer Taking Prescribed by: FLORY BARBER on 06/18/18 1158 Last Action: Discontinued Fluoxetine HCl (Prozac) 20 Mg Capsule, 20 MG PO DAILY, (Reported) Discontinued Reason: No Longer Taking Entered as Reported by: JANIS PRINCE on 06/15/18 1412 Last Action: Discontinued Hydrocodone/Acetaminophen (Hydrocodone-Acetamin 5-325 mg) 1 Each Tablet, 1 TAB PO Q4H PRN for PAIN-MODERATE (5-7) Discontinued Reason: No Longer Taking Prescribed by: CECELIA MOORE on 03/06/21239 Last Action: Discontinued Ibuprofen (Ibuprofen) 800 Mg Tablet, 800 MG PO Q6HR Discontinued Reason: No Longer Taking Prescribed by: FLORY BARBER on 06/18/18 1158 Last Action: Discontinued Ibuprofen (Ibuprofen) 800 Mg Tablet, 800 MG PO Q8H PRN for PAIN Discontinued Reason: No Longer Taking Prescribed by: YANELY JENKINS on 12/02/192102 Last Action: Discontinued Metronidazole (Flagyl) 500 Mg Tablet, 500 MG PO TID Discontinued Reason: No Longer Taking Prescribed by: CECELIA MOORE on 03/06/21239 Last Action: Discontinued Ondansetron (Ondansetron Odt) 4 Mg Tab.rapdis, 4 MG PO Q6H Discontinued Reason: No Longer Taking Prescribed by: CECELIA MOORE on 03/06/21239 Last Action: Discontinued Oxycodone HCl/Acetaminophen (Oxycodone-Acetaminophen 5-325) 1 Each Tablet, 1 TAB PO Q4H PRN for PAIN-MODERATE Discontinued Reason: No Longer Taking Prescribed by: FLORY BARBER on 06/18/181157 Last Action: Discontinued Past Fqswlqz-Ibditl-Fibfju Hx Patient Social History Smoking Status: Current Everyday Smoker (1/2 pack a day for 16 years) Alcohol Use?: Yes Substance type: Nicotine Surgeries History of Surgeries: Yes Surgeries: Gallbladder, Hysterectomy Respiratory History of Respiratory Disorde: No Cardiovascular History of Cardiac Disorders: No Neurological History of Neurological Disord: No 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 System : No Genitourinary History of Genitourinary Disor: No Gastrointestinal History of Gastrointestinal Di: Yes Gastrointestinal Disorders: Gastroesophageal Reflux, Hiatal Hernia Musculoskeletal History of Musculoskeletal Dis: Yes Musculoskeletal Disorders: Chronic Back Pain Endocrine History of Endocrine Disorders: No HEENT History of HEENT Disorders: No Loss of Vision: Denies Hearing Impairment: Denies Cancer History of Cancer: No Psychosocial History of Psychiatric Problem: Yes Behavioral Health Disorders: Anxiety, Depression Family Medical History Significant Family History: Heart Disease (MVP in father), Hypertension (Mother), Other Conditions/Hx (Thyroid problems in mother) Review of Systems-General Constitutional: No chills, No fever EENTM: No blurred vision, No vision loss Respiratory: cough; No short of breath Cardiovascular: chest pain (Due to GERD); No palpitations Gastrointestinal: abdominal pain (Epigastric to RLQ and suprapubic), constipation, heartburn, nausea; No vomiting Genitourinary: No dysuria, No frequency Musculoskeletal: back pain; No joint pain, No joint swelling, No muscle stiffness Skin: No change in color, No change in hair/nails Psychiatric/Neurological: Anxiety, Depressed; Denies Seizure, Denies Tremors Physical Exam-General Problems Physical Exam General Appearance: WD/WN, mild distress (Pain in moderate pain when changing positions) Eyes: Bilateral Eye PERRL, Bilateral Eye EOMI HEENT: pharynx normal; No scleral icterus (R), No scleral icterus (L) Neck: non-tender, supple, normal inspection Respiratory: chest non-tender, lungs clear, normal breath sounds, no respiratory distress, no accessory muscle use Cardiovascular: regular rate, rhythm, no murmur Gastrointestinal: soft, no organomegaly, tenderness (Epigastric, RLQ, and suprapubic) Back: no CVA tenderness, no vertebral tenderness Extremities: non-tender, normal capillary refill Neurologic/Psychiatric: 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 TECHNIQUE: Multiple contiguous axial images were obtained through the abdomen and pelvis without the use of intravenous contrast. Auto Exposure Controls were utilized during the CT exam to meet ALARA standards for radiation dose reduction. INDICATION: Right lower abdominal pain. CORRELATION STUDY: 03/06/2021 FINDINGS: LOWER THORAX: Clear. LIVER: Perhaps very mild fatty infiltration without focal lesion. GALLBLADDER: Cholecystectomy. No bile duct dilatation. SPLEEN: Unremarkable. Small splenule. PANCREAS: Unremarkable. ADRENAL GLANDS: Unremarkable. KIDNEYS: Several small nonobstructing bilateral renal stones. No ureteric calcification or obstructive uropathy. ABDOMINAL AORTA: Unremarkable, nonaneurysmal. GASTROINTESTINAL TRACT: The appendix projects inferiorly to the cecum in the right lower quadrant and is mildly dilated to approximately 1 cm with associated periappendiceal inflammatory changes. No significant free air or abscess formation. URINARY BLADDER: Unremarkable. REPRODUCTIVE: Hysterectomy. OSSEOUS STRUCTURES: No acute abnormality. OTHER: None. IMPRESSION: 1. Findings appear positive for acute early or low-grade appendicitis. No abscess or significant free intraperitoneal air. Telephone call has been made to the [facility], 6:40 AM. Dictated by: Dictated on workstation # [id number] Dict: 07/22/2132 Trans: 07/22/21 0954 [facility] [phone] Interpreted by: DAMASO OSMAN DO Electronically signed by: DAMASO OSMAN DO 07/22/21 0954 Assessment/Plan Assessment/Plan Assessment/Plan 1. Acute appendicitis 2. GERD 3. Anxiety and depression 1. Patient has been NPO since 0430 this morning. Plan for Laparoscopic Appendectomy possible open; discussed risks and complications not limited to pain, bleeding, infection, scar, damage to bowel and need for further procedure. All questions answered to pt's satisfaction. She will get preop ABX, pain control, anti-emetics as needed and IV fluids. Supervisory-Addendum Brief Verification & Attestation Participated in pt care: history, MDM, physical Personally performed: exam, history, MDM, supervision of care Care discussed with: Medical Student Procedures: n/a Verification and Attestation of Medical Student E/M Service A medical student performed and documented this service. I then reviewed and verified all information documented by the medical student and made modifications to such information, when appropriate. I personally performed a physical exam, medical decision making and then discussed any differences between the notes and made revisions as necessary to create one note. Ashley Tipton , 07/22/21 , 14:08 GIL RIVAS Jul 22, 2021 10:05 ASHLEY TIPTON DO Jul 22, 2021 14:03
[2021-07-22] MEDS ORDERED: LIDOCAINE/EPI 1%-1:100,000 (XYLOCAINE) 20ML ONE (10:28)
[2021-07-22] MEDS ORDERED: FAMOTIDINE 20MG/2ML IV (PEPCID) IV ONE (10:30)
[2021-07-22] MEDS ORDERED: LACTATED RINGERS 1,000 ML IV PRN (10:30)
[2021-07-22] MEDS ORDERED: ONDANSETRON 4 MG/2 ML (SDV) Z0FRAN IV ONE (10:30)
[2021-07-22] MEDS ORDERED: MIDAZOLAM 2 MG/2 ML (VERSED) VIAL IV ONE (10:30)
[2021-07-22] MEDS ORDERED: fentaNYL INJ 100 MCG/2 ML AMP ONE ×2 (10:32→11:20)
[2021-07-22] MEDS ORDERED: NEOSTIGMINE 3 MG/3 ML VIAL ONE (10:32)
[2021-07-22] MEDS ORDERED: ONDANSETRON 4 MG/2 ML (SDV) Z0FRAN ONE (10:32)
[2021-07-22] MEDS ORDERED: LIDOCAINE PF 2% 5 ML (XYLOCAINE) VIAL ONE (10:32)
[2021-07-22] MEDS ORDERED: GLYCOPYRROLATE 0.2 MG/ML (ROBINUL) 2 ML VIAL ONE (10:32)
[2021-07-22] MEDS ORDERED: MIDAZOLAM 2 MG/2 ML (VERSED) VIAL ONE (10:32)
[2021-07-22] MEDS ORDERED: ROCURONIUM 10 MG/ML 5 ML SYRINGE IV ONE (10:32)
[2021-07-22] MEDS ORDERED: SUCCINYLCHOLINE INJ 100 MG/5 ML SYR/VIAL ONE (10:32)
[2021-07-22] MEDS ORDERED: proPOfol 200 MG/20 ML (DIPRIVAN) VIAL IV ONE (10:32)
[2021-07-22] MEDS ORDERED: ceFAZolin 2 GM/50 ML (PRE-MIXED) IV ONE (10:45)
[2021-07-22] MEDS: LACTATED RINGERS 1,000 ML IV PRN ×2 (10:59→12:15)
[2021-07-22] MEDS ORDERED: fentaNYL INJ 100 MCG/2 ML AMP IVP ONE (11:15)
[2021-07-22] MEDS ORDERED: BUPR100T7 PO (12:00)
[2021-07-22] MEDS ORDERED: SEVOFLURANE (ULTANE) 15 ML INHAL SOLN ONE (12:44)
[2021-07-22] MEDS ORDERED: morphine INJ 10 MG/ML 1ML (SYR OR VIAL) IVP ONE (13:00)
[2021-07-22] MEDS ORDERED: ONDANSETRON 4 MG/2 ML (SDV) Z0FRAN IVP PRN (13:00)
[2021-07-22] MEDS ORDERED: HYDROmorphone 2 MG/ML VIAL (DILAUDID) IV ONE (13:00)
--- NOTE | 2021-07-22 13:58 | Progress Note-Post Operative ---
Post-Operative Progess Note Surgeon (s)/Scheme Technician (s) Surgeon ASHLEY TIPTON DO Scheme Technician: CHAPARRO Corona Pre-Operative Diagnosis Acute appy Post-Operative Diagnosis acute appy Procedure & Operative Findings Date of Procedure 07/22/21 Procedure Performed/Findings PROCEDURE: Laparoscopic appendectomy. COMPLICATIONS: None. INDICATIONS: The patient is a 35 year old female who has been having right lower quadrant abdominal pain. Patient's exam consistent with appendicitis. I discussed risk and benefits of laparoscopic appendectomy and all indicated procedures with the possibility being a normal appendix. The patient understands the risks and benefits and wishes to proceed. Consent was signed on the chart. DESCRIPTION OF PROCEDURE: The patient was taken to the operating suite, prepped and draped in a sterile fashion. Timeout was performed. Local anesthetic was infiltrated just above the umbilicus and 11-blade scalpel was used to make a skin incision. Cautery was used to dissect down to the fascia and scored. Kochers were used to grasp and elevate it and the abdomen was then entered. A 0 Vicryl was placed in a [id number] fashion for closure at the end of the case. The balloon trocar was inserted into the abdomen and pneumoperitoneum was achieved. Under direct visualization of the laparoscope, a 5 mm trocar was placed in the suprapubic region and a 5 mm trocar was placed in the left lower quadrant. Appendix was located, there was some edema and it was enwrapped by fat. Started coming across the mesoappendix with the Ligasure; clamping, coagulating and cutting. In this fashion getting down to the base of the appendix; completely freeing it up so that it was only attached to the Cecum. Once at the base an Endo-MELCHOR 2.5 stapler was then fired across the base of the appendix. It was then placed in an Endobag and removed through the 12 mm trocar site. The abdomen was then irrigated and suctioned. No other pathology noted. The abdomen was then desufflated and the trocars were removed. The 0 Vicryl placed at the beginning of the case was then tied closing the 12 mm fascial defect. The skin was then closed using 4-0 Monocryl in a subcuticular fashion. The abdomen was then washed and dried and Skin Affix was placed over the incisions. The patient tolerated the procedure well without any complications and was taken to the recovery room in stable condition. Anesthesia Type GET Estimated Blood Loss Estimated blood loss (mL): scant Specimens/Packing Specimens Removed appendix ASHLEY TIPTON DO Jul 22, 2021 13:58
[2021-07-22] MEDS ORDERED: ACHD5005 PO (14:09)
--- NOTE | 2021-07-22 14:11 | Discharge Inst-Surgical ---
Discharge Inst-Surgical Depart Medication/Instructions New, Converted or Re-Newed RX: Transmitted to Pharmacy Patient Instructions Follow up Appt: Make appointment for 1 week. [phone] Instructions: No lifting greater than 20 pounds. No strenuous activity. May shower in 24 hours, no tub bath or soaking. Use incentive spirometer at home as directed. No Smoking Skin/Wound Care: May remove bandages in am. You need to leave the Dermabond on incision it will fall off on it's own. Symptoms to Report: Appetite Changes, Extremity Discoloration, Numbness/Tingling, Swelling Increased, Bleeding Excessive, Eyesight Changes, Pain Increased, Urine Color Change, Constipation(Persistent), Fever over 101 degree F, Pain/Pressure in chest, Urinating Difficulty, Cough Up/Vomit Blood, Heart Beat Irreg/Pounding, Pain/Pressure in jaw, Cramps in feet or legs, Lightheadedness, Pain/Pressure in shoulder, Diarrhea(Persistent), Memory Changes Suddenly, Questions/Concerns, Weight gain consecutive days, Dizziness/Fainting, Nausea/Vomiting, Shortness of Breath, Weight gain over 2 pounds If questions or concerns contact your physician Or seek help at emergency department. Activity Activity as Tolerated: Yes Activity Instructions: Avoid Stress to Incision Driving Instructions: No Driving/Refer to Dr. Alba Discharge Diet: No Restrictions Diet After 24 Hours: Clear Liquid if Nauseous If Any Problems/Questions/Issu: Contact Your Physician, Go to Emergency Room Skin/Wound Care Infection Signs and Symptoms: Increased Redness, Foul Odor of Wound, Increased Drainage, Skin Itchy or Has a Rash, Increased Swelling, Temperature Above 101 F Bathing Instructions: Shower Stitches/[place]/Dermabond Dis: Dermabond Ice Pack: Ice On and Off Site ASHLEY TIPTON DO Jul 22, 2021 14:11
--- NOTE | 2021-07-23 08:09 | Anesthesia-General Post-Op ---
General Patient Condition Mental Status/LOC: Same as Preop Cardiovascular: Satisfactory Nausea/Vomiting: Absent Respiratory: Satisfactory Pain: Controlled Complications: Absent Post Op Complications Complications None Follow Up Care/Instructions Patient Instructions None needed. Anesthesia/Patient Condition Patient Condition Patient was seen yesterday after the procedure and she was doing well, no complaints, stable vital signs, no apparent adverse anesthesia problems. CRISTINA KOO DO Jul 23, 2021 08:09
[2021-07-23] MEDS ORDERED: ACHD5005 PO (17:09)
== END 2021-07-22 15:10 | disposition home or self-care (01) ==
LOC: SDC 08:41
PROVIDERS: ATTEND Surgery
DX: K35.80 Unspecified acute appendicitis (principal); F41.9 Anxiety disorder, unspecified; K21.9 Gastro-esophageal reflux disease without esophagitis; K44.9 Diaphragmatic hernia without obstruction or gangrene; K59.09 Other constipation; K52.9 Noninfective gastroenteritis and colitis, unspecified; F32.9 Major depressive disorder, single episode, unspecified; Z88.5 Allergy status to narcotic agent; F17.210 Nicotine dependence, cigarettes, uncomplicated; Z88.8 Allergy status to other drugs, medicaments and biological substances; Z79.899 Other long term (current) drug therapy; Z11.2 Encounter for screening for other bacterial diseases
CPT/HCPCS: 87081

== ENCOUNTER 2021-07-23 15:02 | Emergency (ER) | payer SELFPAY ==
[~2021-07-23 15:02] MED LIST changes: +BUPR100T7 PO
[2021-07-23] MEDS ORDERED: ONDANSETRON 4 MG/2 ML (SDV) Z0FRAN IVP STA (15:26)
[2021-07-23] MEDS ORDERED: fentaNYL INJ 100 MCG/2 ML AMP IVP STA (15:26)
[2021-07-23] MEDS ORDERED: KETOROLAC 30 MG/ML VIAL IVP STA (15:26)
--- NOTE | 2021-07-23 15:37 | ED Abdominal Pain ---
General Chief Complaint: Abdominal/GI Problems Stated Complaint: ABD PAIN HX APPENDECTOMY Nursing Triage Note: Patient presents to the ED with c/o abdominal pain and constipation. She states that she has not had a bowel movment since before her surgery yesterday. She reports continuous abdominal pain and states that her pain medication is not helping. Patient reports that she has been taking gas-x and a stool softener and still has not had any results. Source of Information: Patient History of Present Illness Date Seen by Provider: Jul 23, 2021 Time Seen by Provider: 15:05 Initial Comments 35-year-old female presenting with continued abdominal pain and complaints of constipation. She states since having her appendix removed yesterday at the same day surgery center in [place] she has not been able to have a bowel movement. She states she has not been passing gas. She has tried taking Gas-X and stool softeners without any relief. She denies any vomiting but has had some nausea. She has been taking the hydrocodone 5/325 mg pills 1 every 8 hours. She has not been taking her regular anxiety medicines because she was worried about interaction with the pain medicine. She also is anxious and that is exacerbating her pain. She did not call Dr. Tipton, her surgeon from the laparoscopic appendectomy, about her pain issues. She tried to go to the urgent care walk-in clinic and was told she had to come to the emergency department. She denies any fever, chills, pain with urination. She took her last pain pill around 930 am and states it is every 8 hours so she has not taken any more. Timing/Duration: 1 Day Severity/Quality: Cramping, Sharp, Stabbing Location: Generalized Abdomen Associated Symptoms: No Back Pain, No Chest Pain, No Diaphoresis, No Fev er/Chills, No Fatigue, No Headache, No Heartburn; Nausea/Vomiting (mild nausea but no vomiting); No Shortness of Air, No Swelling/Mass in Abdomen Allergies and Home Medications Allergies Coded Allergies: codeine (Verified Allergy, Severe, THROAT SWELLING, 01/25/19) ranitidine (Verified Allergy, Severe, TACHYCARDIA, ITCHING, 06/15/18) atropine (Verified Allergy, Mild, HIVES, 06/15/18) hyoscyamine (Verified Allergy, Mild, HIVES, 06/15/18) omeprazole (Verified Allergy, Mild, RASH, 06/15/18) phenobarbital (Verified Allergy, Mild, HIVES, 06/15/18) scopolamine (Verified Allergy, Mild, HIVES, 06/15/18) Patient Home Medication List Home Medication List Reviewed: Yes Alprazolam (Xanax) 0.5 Mg Tablet, 0.5 MG PO TID, (Reported) Entered as Reported by: JANIS PRINCE on 06/15/18 1412 Bupropion HCl (Wellbutrin Sr) 100 Mg Tablet.er, 100 MG PO DAILY, (Reported) Entered as Reported by: BRICE MORRISSEY on 07/22/21 1200 Hydrocodone Bit/Acetaminophen (HYDROcodone/APAP 5 MG/325 MG TAB) 1 Tab Tab, 1 TAB PO Q8H PRN for PAIN-MODERATE (5-7) Prescribed by: ASHLEY TIPTON on 07/22/21 1410 Hydrocodone/Acetaminophen (Hydrocodone-Acetamin 5-325 mg) 1 Each Tablet, 1 TAB PO Q4H PRN for PAIN-SEVERE (8-10) Prescribed by: YANELY JENKINS on 07/23/21 1710 Discontinued Medications Cyclobenzaprine HCl (Cyclobenzaprine HCl) 10 Mg Tablet, 5 MG PO Q8H PRN for SPASMS Discontinued Reason: No Longer Taking Prescribed by: YANELY JENKINS on 12/02/19 2103 Docusate Sodium (Docusate Sodium) 100 Mg Capsule, 100 MG PO BID Discontinued Reason: No Longer Taking Prescribed by: FLORY BARBER on 06/18/18 1158 Fluoxetine HCl (Prozac) 20 Mg Capsule, 20 MG PO DAILY, (Reported) Discontinued Reason: No Longer Taking Entered as Reported by: JANIS PRINCE on 06/15/18 1412 Hydrocodone/Acetaminophen (Hydrocodone-Acetamin 5-325 mg) 1 Each Tablet, 1 TAB PO Q4H PRN for PAIN-MODERATE (5-7) Discontinued Reason: No Longer Taking Prescribed by: CECELIA MOORE on 03/06/21 0240 Ibuprofen (Ibuprofen) 800 Mg Tablet, 800 MG PO Q6HR Discontinued Reason: No Longer Taking Prescribed by: FLORY BARBER on 06/18/18 1158 Ibuprofen (Ibuprofen) 800 Mg Tablet, 800 MG PO Q8H PRN for PAIN Discontinued Reason: No Longer Taking Prescribed by: YANELY JENKINS on 12/02/192102 Metronidazole (Flagyl) 500 Mg Tablet, 500 MG PO TID Discontinued Reason: No Longer Taking Prescribed by: CECELIA MOORE on 03/06/21 024 Ondansetron (Ondansetron Odt) 4 Mg Tab.rapdis, 4 MG PO Q6H Discontinued Reason: No Longer Taking Prescribed by: CECELIA MOORE on 03/06/21 024 Oxycodone HCl/Acetaminophen (Oxycodone-Acetaminophen 5-325) 1 Each Tablet, 1 TAB PO Q4H PRN for PAIN-MODERATE Discontinued Reason: No Longer Taking Prescribed by: FLORY BARBER on 06/18/18 1158 Review of Systems Review of Systems Constitutional: No chills, No fever EENTM: No Symptoms Reported Respiratory: No Symptoms Reported Cardiovascular: No Symptoms Reported Gastrointestinal: See HPI Genitourinary: No Symptoms Reported Musculoskeletal: no symptoms reported Skin: no symptoms reported Psychiatric/Neurological: Anxiety Past Nxpamuv-Ludlqn-Csmldv Hx Patient Social History Tobacco Use?: No Use of E-Cig and/or Vaping dev: No Substance use?: No Alcohol Use?: No Pt feels they are or have been: No Immunizations Up To Date First/Initial COVID19 Vaccinat: NO Second COVID19 Vaccination Rohit: NA Seasonal Allergies Seasonal Allergies: Yes Past Medical History Surgeries: Yes Appendectomy (07/22/2021), Gallbladder, Hysterectomy Respiratory: No Currently Using CPAP: No Currently Using BIPAP: No Cardiac: No Hypertension Neurological: No 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: Yes (DUB, CPP, MENORRHAGIA) Female 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: 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, 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 Sexually Transmitted Disease: No HIV/AIDS: No Genitourinary: No Gastrointestinal: Yes Gastroesophageal Reflux, Hiatal Hernia Musculoskeletal: Yes Chronic Back Pain Endocrine: No HEENT: No Loss of Vision: Denies Hearing Impairment: Denies Cancer: No Psychosocial: Yes Anxiety, Depression Integumentary: No Blood Disorders: No Adverse Reaction/Blood Tranf: No (N/A) Family Medical History Heart Disease, Hypertension, Other Conditions/Hx Physical Exam Vital Signs Vital Signs - First Documented 07/23/21 15:10 Temp 36.7 Pulse 86 Resp 18 B/P (MAP) 134/87 (103) Pulse Ox 98 Capillary Refill : Less Than 3 Seconds Height/Weight/BMI Height: 5'4.00" Weight: 230lbs. 6.0oz. [id number]; 30.48 BMI Method:Stated General Appearance: WD/WN, moderate distress Respiratory: chest non-tender, lungs clear, normal breath sounds Cardiovascular: normal peripheral pulses, regular rate, rhythm Gastrointestinal: soft, no pulsatile mass, abnormal bowel sounds (Hypoactive bowel sounds); No distended, No rebound; tenderness (diffusely tender to palpation and when she coughs. more tender around the umbilical incision from lap appy) Rectal: deferred Extremities: normal range of motion, non-tender, normal capillary refill Neurologic/Psychiatric: alert, oriented x 3, other (anxious) Skin: warm/dry, ecchymosis (mild around incisions from lap appy) Progress/Results/Core Measures Results/Orders My Orders Orders - YANELY JENKINS MD Ed Iv/Invasive Line Start (07/23/21 15:26) Acute Abd Series (07/23/21 15:26) Ondansetron Injection (Zofran Injectio (07/23/21 15:26) Fentanyl Inj (Sublimaze Injection) (07/23/21 15:26) Ketorolac Injection (Toradol Injection) (07/23/21 15:26) Vital Signs/I&O 07/23/21 07/23/21 07/23/21 15:10 15:37 17:20 Temp 36.7 36.7 36.7 Pulse 86 72 Resp 18 18 B/P (MAP) 134/87 (103) 128/79 Pulse Ox 98 100 Blood Pressure Mean: 103 Progress Progress Note #1: Progress Note Will try toradol for pain, fentanyl for pain, zofran for nausea, obtain acute abdomen series to evaluate for obstruction/ileus. Recommend taking Miralax 2 times a day to get her bowels moving and help with gas pains as her bowels start moving. May need to increase pain medicine for 1-2 days until Miralax working to get bowels moving. Progress Note #2: Progress Note On recheck of the patient her pain seem to be improved and she was feeling a little better. She still felt pressure intermittently in the Left upper quadrant. Reviewed with patient that her x-rays continue to show moderate to large amount of stool but no sign of obstruction, blockage, ileus, free air. Counseled on medications as well as treatment for constipation. We will have her increase her hydrocodone to every 4 hours if needed for pain control. She could take ibuprofen for additional pain control. Try a liquid diet. Diagnostic Imaging Diagonstic Imaging: Xray Plain Films/CT/US/NM/MRI: abdomen Comments NAME: ZEUS BULLARD [facility] REC#: [id number] PT STATUS: REG ER : 1985 PHYSICIAN: YANELY JENKINS MD ADMIT DATE: 07/23/21/ER FS Draft Date of Exam:07/23/21 ACUTE ABD SERIES INDICATION: abdominal pain, constipation, s/p lap appy 07/22 COMPARISON: 03/06/2021. FINDINGS: Supine and upright views of the abdomen show a nondistended bowel gas pattern. No abnormal air fluid levels or free intraperitoneal air is seen. Moderate amount of air and stool is seen scattered throughout the colon. No abnormal extraosseous calcifications are seen. Bony and soft tissue structures are within normal limits. No organomegaly is identified. Accompanying upright chest shows normal heart size and pulmonary vascularity. The lungs are well aerated and clear. The mediastinum is normal in appearance. IMPRESSION: 1. No bowel obstruction or free air. 2. Normal chest. No pneumonia or pulmonary edema. 3. Moderate colonic air and stool. Please correlate for constipation. Dictated on workstation # [id number] Dict: 07/23/21 1602 Trans: 07/23/21 1613 [id number] Interpreted by: RASHMI PADILLA MD Electronically signed by: Reviewed: Reviewed by Me Departure Impression Primary Impression: Abdominal pain Qualified Codes: R10.84 - Generalized abdominal pain Additional Impressions: Constipation Qualified Codes: K59.01 - Slow transit constipation S/P laparoscopic appendectomy Disposition: HOME, SELF-CARE Condition: Stable Departure-Patient Inst. Decision time for Depature: 17:06 Referrals: ASHLEY TIPTON MAXWELL MD (PCP/Family) Primary Care Physician Patient Instructions: Constipation, Adult ED, Appendectomy, Laparoscopic Surgery (DC) Add. Discharge Instructions: For next 24 to 48 hours follow a liquid diet so it will be easier on your stomach and bowels, and cause less gas and bloating. Take Miralax 17 grams mixed in 8 ounces of juice or liquid of your choice. Take now and again before bed tonight. Prune Juice or Apple Juice are good for helping with constipation as well. If still not having bowel movement or passing some stool and gas by the morning then take another dose of the Miralax and continue that every day until your bowels are soft and regular. You could take your Wellbutrin medicine while taking pain medicine. For the next 24 hours you could increase your Hydrocodone to 1 pill every 4 hours if needed for severe pain. You could take your next dose now. You could still take Ibuprofen for pain as well and your next dose of that you could take after 8 pm. If you keep having problems or concerns you could also call Dr. Tipton and the surgery clinic since he did your surgery on Thursday. All discharge instructions reviewed with patient and/or family. Voiced understanding. Scripts Hydrocodone/Acetaminophen (Hydrocodone-Acetamin 5-325 mg) 1 Each Tablet 1 TAB PO Q4H PRN for PAIN-SEVERE (8-10) for 2 Days, #12 TAB 0 Refills Prov: YANELY JENKINS MD 07/23/21 YANELY JENKINS MD Jul 23, 2021 15:37
--- NOTE | 2021-07-23 16:14 | Diagnostic Imaging Report ---
INDICATION: abdominal pain, constipation, s/p lap appy 07/22 COMPARISON: 03/06/2021. FINDINGS: Supine and upright views of the abdomen show a nondistended bowel gas pattern. No abnormal air fluid levels or free intraperitoneal air is seen. Moderate amount of air and stool is seen scattered throughout the colon. No abnormal extraosseous calcifications are seen. Bony and soft tissue structures are within normal limits. No organomegaly is identified. Accompanying upright chest shows normal heart size and pulmonary vascularity. The lungs are well aerated and clear. The mediastinum is normal in appearance. IMPRESSION: 1. No bowel obstruction or free air. 2. Normal chest. No pneumonia or pulmonary edema. 3. Moderate colonic air and stool. Please correlate for constipation. Dictated by: Dictated on workstation # [id number]
[2021-07-23] MEDS ORDERED: ACHD5005 PO (17:09)
[2021-07-23 17:20] VITALS: BP 128/79
== END 2021-07-23 17:16 | disposition home or self-care (01) ==
LOC: EDUNIT# 15:02 → ER FS 15:04
DX: K59.00 Constipation, unspecified (principal); I10 Essential (primary) hypertension; F41.9 Anxiety disorder, unspecified; F32.9 Major depressive disorder, single episode, unspecified; G89.29 Other chronic pain; M54.9 Dorsalgia, unspecified; Z90.89 Acquired absence of other organs; Z79.899 Other long term (current) drug therapy
CPT/HCPCS: 74022

== ENCOUNTER 2022-04-19 22:20 | Emergency (ER) | payer SELFPAY ==
[~2022-04-19] VITALS: Ht 160 cm; Wt 81.6 kg
[~2022-04-19 22:20] MED LIST changes: +CYCL10TA25 PO; -CYCL10TA9 PO
[2022-04-19 22:24] VITALS: BP 144/99
[2022-04-19] MEDS ORDERED: diphenhydrAMINE 50 MG/ML INJ (BENADRYL) IVP ONE (22:30)
[2022-04-19] MEDS ORDERED: ANTACID SUSP 30 ML UDC (MYLANTA) PO ONE (22:30)
[2022-04-19] MEDS ORDERED: LIDOCAINE 2% VISCOUS 15 ML UDC PO ONE (22:30)
[2022-04-19] MEDS ORDERED: DROPERIDOL 5 MG/2 ML (INAPSINE) ED ONLY! IV ONE (22:30)
--- NOTE | 2022-04-19 22:33 | ED Abdominal Pain ---
General Stated Complaint: UPPER ABDOMINAL PAIN Source of Information: Patient Exam Limitations: No Limitations History of Present Illness Date Seen by Provider: Apr 19, 2022 Time Seen by Provider: 22:23 Initial Comments 36-year-old female with past medical history of chronic abdominal pain coming in due to upper abdominal pain. Started around 7 hours ago, constant, sharp, worse with movement. Tried ibuprofen earlier which did not help much. Has some nausea but no vomiting. Had a normal bowel movement earlier today. Feels similar to when she had her gallbladder out. Denies any fever, chest pain, shortness of breath, weakness, numbness, dysuria, urinary frequency, rash, or any other concerns. Allergies and Home Medications Allergies Coded Allergies: codeine (Verified Allergy, Severe, THROAT SWELLING, 01/25/19) ranitidine (Verified Allergy, Severe, TACHYCARDIA, ITCHING, 06/15/18) atropine (Verified Allergy, Mild, HIVES, 06/15/18) hyoscyamine (Verified Allergy, Mild, HIVES, 06/15/18) omeprazole (Verified Allergy, Mild, RASH, 06/15/18) phenobarbital (Verified Allergy, Mild, HIVES, 06/15/18) scopolamine (Verified Allergy, Mild, HIVES, 06/15/18) Patient Home Medication List Home Medication List Reviewed: Yes Alprazolam (Xanax) 0.5 Mg Tablet, 0.5 MG PO TID, (Reported) Entered as Reported by: JANIS PRINCE on 06/15/18 141 Bupropion HCl (Wellbutrin Sr) 100 Mg Tablet.er, 100 MG PO DAILY, (Reported) Entered as Reported by: BRICE MORRISSEY on 07/22/21 1200 Hydrocodone Bit/Acetaminophen (HYDROcodone/APAP 5 MG/325 MG TAB) 1 Tab Tab, 1 TAB PO Q8H PRN for PAIN-MODERATE (5-7) Prescribed by: ASHLEY TIPTON on 07/22/21 1410 Hydrocodone/Acetaminophen (Hydrocodone-Acetamin 5-325 mg) 1 Each Tablet, 1 TAB PO Q4H PRN for PAIN-SEVERE (8-10) Prescribed by: YANELY JENKINS on 07/23/21 1710 Review of Systems Review of Systems Constitutional: No fever EENTM: No Blurred Vision Respiratory: Denies Cough Cardiovascular: Denies Chest Pain Gastrointestinal: Abdominal Pain, Nausea; Denies Vomiting Genitourinary: No Symptoms Reported Musculoskeletal: no symptoms reported Skin: no symptoms reported Psychiatric/Neurological: No Symptoms Reported Endocrine: No Symptoms Reported Hematologic/Lymphatic: No Symptoms Reported All Other Systems Reviewed Negative Unless Noted: Yes Past Hzomfvj-Opslzf-Jsfipz Hx Patient Social History Tobacco Use?: No Substance use?: No Alcohol Use?: No Immunizations Up To Date First/Initial COVID19 Vaccinat: NO Second COVID19 Vaccination Rohit: NA Third COVID19 Vaccination Date: NA Seasonal Allergies Seasonal Allergies: Yes Past Medical History Surgeries: Yes Appendectomy, Gallbladder, Hysterectomy Respiratory: No Currently Using CPAP: No Currently Using BIPAP: No Cardiac: No Hypertension Neurological: No 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: Yes (DUB, CPP, MENORRHAGIA) Female 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: 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, 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 [employer] History: Hysterectomy Sexually Transmitted Disease: No HIV/AIDS: No Genitourinary: No Gastrointestinal: Yes Gastroesophageal Reflux, Hiatal Hernia Musculoskeletal: Yes Chronic Back Pain Endocrine: No HEENT: No Loss of Vision: Denies Hearing Impairment: Denies Cancer: No Psychosocial: Yes Anxiety, Depression Integumentary: No Blood Disorders: No Adverse Reaction/Blood Tranf: No (N/A) Family Medical History Heart Disease, Hypertension, Other Conditions/Hx Physical Exam Vital Signs Vital Signs - First Documented 04/19/22 22:24 Temp 36.7 Pulse 107 Resp 18 B/P (MAP) 144/99 (114) Pulse Ox 99 O2 Delivery Room Air Capillary Refill : Height/Weight/BMI Height: 5'4.00" Weight: 230lbs. 6.0oz. 104.261040mq; 30.48 BMI Method:Stated General Appearance: WD/WN, no apparent distress HEENT: PERRL/EOMI, normal ENT inspection, pharynx normal Neck: non-tender, full range of motion, supple, normal inspection Respiratory: chest non-tender, lungs clear, normal breath sounds, no respiratory distress, no accessory muscle use Cardiovascular: regular rate, rhythm, no edema, no murmur Gastrointestinal: normal bowel sounds, non tender (no pain when palpating with stethoscope), soft; No distended, No guarding, No rebound Extremities: normal range of motion, non-tender, normal inspection, no pedal edema, no calf tenderness, normal capillary refill Back: normal inspection, no CVA tenderness Neurologic/Psychiatric: no motor/sensory deficits, alert, normal mood/affect Skin: normal color, warm/dry Lymphatic: no adenopathy Progress/Results/Core Measures Results/Orders Lab Results Laboratory Tests Test 04/19/22 22:35 Range/Units White Blood Count 14.3 H 4.3-11.0 10^3/uL Red Blood Count 4.39 3.80-5.11 10^6/uL Hemoglobin 13.1 11.5-16.0 g/dL Hematocrit 38 35-52 % Mean Corpuscular Volume 86 80-99 fL Mean Corpuscular Hemoglobin 30 25-34 pg Mean Corpuscular Hemoglobin Concent 35 32-36 g/dL Red Cell Distribution Width 13.0 10.0-14.5 % Platelet Count 235 130-400 10^3/uL Mean Platelet Volume 10.5 9.0-12.2 fL Immature Granulocyte % (Auto) 0 % Neutrophils (%) (Auto) 68 42-75 % Lymphocytes (%) (Auto) 27 12-44 % Monocytes (%) (Auto) 4 0-12 % Eosinophils (%) (Auto) 1 0-10 % Basophils (%) (Auto) 0 0-10 % Neutrophils # (Auto) 9.7 H 1.8-7.8 10^3/uL Lymphocytes # (Auto) 3.8 1.0-4.0 10^3/uL Monocytes # (Auto) 0.6 0.0-1.0 10^3/uL Eosinophils # (Auto) 0.1 0.0-0.3 10^3/uL Basophils # (Auto) 0.0 0.0-0.1 10^3/uL Immature Granulocyte # (Auto) 0.0 0.0-0.1 10^3/uL Sodium Level 138 135-145 MMOL/L Potassium Level 3.9 3.6-5.0 MMOL/L Chloride Level 104 98-107 MMOL/L Carbon Dioxide Level 23 21-32 MMOL/L Anion Gap 11 5-14 MMOL/L Blood Urea Nitrogen 20 H 7-18 MG/DL Creatinine 0.90 0.60-1.30 MG/DL Estimat Glomerular Filtration Rate 84 BUN/Creatinine Ratio 22 Glucose Level 87 70-105 MG/DL Calcium Level 9.9 8.5-10.1 MG/DL Corrected Calcium 9.7 8.5-10.1 MG/DL Total Bilirubin 0.2 0.1-1.0 MG/DL Aspartate Amino Transf (AST/SGOT) 12 5-34 U/L Alanine Aminotransferase (ALT/SGPT) 10 0-55 U/L Alkaline Phosphatase 93 40-136 U/L Total Protein 7.2 6.4-8.2 GM/DL Albumin 4.3 3.2-4.5 GM/DL Lipase 35 8-78 U/L My Orders Orders - YURI VELA MD Lidocaine 2% Viscous 15 Ml (Xylocaine Vi (04/19/22 22:30) Antacid Suspension (Mylanta Suspension (04/19/22 22:30) Ed Iv/Invasive Line Start (04/19/22 22:27) Comprehensive Metabolic Panel (04/19/22 22:27) Lipase (04/19/22 22:27) Cbc With Automated Diff (04/19/22 22:27) Droperidol Inj (Ed Only) (Inapsine Inj ( (04/19/22 22:30) Diphenhydramine Injection (Benadryl Inje (04/19/22 22:30) Manual Differential (04/19/22 22:35) Medications Given in ED Current Medications Medications Dose Ordered Sig/Shahram Route Start Time Stop Time Status Last Admin Dose Admin Al Hydrox/Mg Hydrox/Simethicone 30 ml ONCE ONCE PO 04/19/22 22:30 04/19/22 22:31 DC 04/19/22 22:42 30 ML Diphenhydramine HCl 12.5 mg ONCE ONCE IVP 04/19/22 22:30 04/19/22 22:32 DC 04/19/22 22:42 12.5 MG Droperidol 2.5 mg ONCE ONCE IV 04/19/22 22:30 04/19/22 22:32 DC 04/19/22 22:42 2.5 MG Lidocaine HCl 15 ml ONCE ONCE PO 04/19/22 22:30 04/19/22 22:31 DC 04/19/22 22:42 15 ML Vital Signs/I&O 04/19/22 22:24 Temp 36.7 Pulse 107 Resp 18 B/P (MAP) 144/99 (114) Pulse Ox 99 O2 Delivery Room Air Progress Progress Note : Progress Note 36-year-old female coming in due to upper abdominal pain. ABCs were intact and vitals were stable on presentation. Physical exam reassuring including a soft abdomen with no signs of peritonitis. An IV was placed and she was given droperidol and Benadryl for abdominal pain and nausea. This did help somewhat, but she still having symptoms. Physical labs including LFTs obtained and are reassuring. She does not have a gallbladder, appendix, and she has had a hysterectomy. Given the pain is upper abdominal, likely GI as a source such as stomach or esophagus. She has had multiple CT scans here for similar etiologies. I will recommend follow-up with our general surgeon to discuss p otential for scope. She was then discharged home in stable condition with strict return precautions Departure Impression Primary Impression: Abdominal pain Qualified Codes: R10.13 - Epigastric pain Disposition: HOME, SELF-CARE Condition: Stable Departure-Patient Inst. Decision time for Depature: 23:13 Referrals: ALEXYS BANKS MAXWELL MD (PCP/Family) Primary Care Physician Patient Instructions: Abdominal Pain, Adult ED Add. Discharge Instructions: Given where you are hurting, I think is most likely coming from your stomach or lower esophagus. I will need to follow-up with one of our surgeons or GI doctor that you can find externally for an evaluation and potential scope. Work/School Note: Work Release Form Date Seen in the Emergency Department: Apr 19, 2022 Return to Work: Apr 21, 2022 Restrictions: No Restrictions YURI VELA MD Apr 19, 2022 22:33
[2022-04-19 22:36] LABS: BASOPHILS % (AUTO) 0 % (0-10); EOSINOPHILS # (AUTO) 0.1 10^3/uL (0.0-0.3); EOSINOPHILS % (AUTO) 1 % (0-10); HEMATOCRIT 38 % (35-52); HEMOGLOBIN 13.1 g/dL (11.5-16.0); LYMPHOCYTES # (AUTO) 3.8 10^3/uL (1.0-4.0); LYMPHOCYTES % (AUTO) 27 % (12-44); MEAN CORPUSCULAR HEMOGLOBIN 30 pg (25-34); MEAN CORPUSCULAR HGB CONC 35 g/dL (32-36); MEAN CORPUSCULAR VOLUME 86 fL (80-99); MEAN PLATELET VOLUME 10.5 fL (9.0-12.2); MONOCYTES # (AUTO) 0.6 10^3/uL (0.0-1.0); MONOCYTES % (AUTO) 4 % (0-12); NEUTROPHILS # (AUTO) 9.7 10^3/uL (1.8-7.8); NEUTROPHILS % (AUTO) 68 % (42-75); PLATELET COUNT 235 10^3/uL (130-400); WHITE BLOOD COUNT 14.3 10^3/uL (4.3-11.0)
[2022-04-19 22:58] LABS: POTASSIUM 3.9 MMOL/L (3.6-5.0)
[2022-04-19 22:59] LABS: ALBUMIN 4.3 GM/DL (3.2-4.5); BILIRUBIN,TOTAL 0.2 MG/DL (0.1-1.0); CALCIUM 9.9 MG/DL (8.5-10.1); CREATININE SERUM 0.9 MG/DL (0.60-1.30); TOTAL PROTEIN 7.2 GM/DL (6.4-8.2)
[2022-04-19 23:11] LABS: EOSINOPHILS % (MANUAL) 2 %; LYMPHOCYTES % (MANUAL) 29 %; MONOCYTES % (MANUAL) 2 %; NEUTROPHILS % (MANUAL) 67 %
== END 2022-04-19 23:15 | disposition home or self-care (01) ==
LOC: EDUNIT# 22:20 → ER FS 22:22
DX: R10.13 Epigastric pain (principal); Z90.49 Acquired absence of other specified parts of digestive tract; Z90.710 Acquired absence of both cervix and uterus; Z28.310 Unvaccinated for COVID-19
CPT/HCPCS: 36415; 80053; 83690; 85007; 85027

== ENCOUNTER 2022-08-17 13:18 | Emergency (ER) | payer SELFPAY ==
[~2022-08-17] VITALS: Ht 161 cm; Wt 83.5 kg
--- NOTE | 2022-08-17 13:56 | ED Cardiac General ---
History of Present Illness General Chief Complaint: Cardiac/General Problems Stated Complaint: HIGH BP, NOT FEELING WELL Nursing Triage Note: Patient presents to the ED with c/o elevated blood pressure and dizziness. States, "my head feels weird". Reports blood pressure reading of 155/100 and is having some dizziness and nausea. States she was on metoprolol but her PCP discontinued it 1 year ago. History of Present Illness Date Seen by Provider: Aug 17, 2022 Time Seen by Provider: 13:51 Initial Comments 36-year-old female here with complaints of elevated blood pressure. She hasbeen up the past couple days. She is having some pain in the head. No chest pain but is having left arm pain has been a little nauseated. Feeling blotchy. Sometimes she gets dizzy with anxiety but does not having the dizziness now. Blood pressures 150 something over 110 earlier which is why she ended up coming in. States she has been on metoprolol in the past but she thinks it was more fo r her heart rate then for blood pressure. Patient having headache and states it feels just groundman/lineman her head. No vision changes. Allergies and Home Medications Allergies Coded Allergies: codeine (Verified Allergy, Severe, THROAT SWELLING, 01/25/19) ranitidine (Verified Allergy, Severe, TACHYCARDIA, ITCHING, 06/15/18) atropine (Verified Allergy, Mild, HIVES, 06/15/18) hyoscyamine (Verified Allergy, Mild, HIVES, 06/15/18) omeprazole (Verified Allergy, Mild, RASH, 06/15/18) phenobarbital (Verified Allergy, Mild, HIVES, 06/15/18) scopolamine (Verified Allergy, Mild, HIVES, 06/15/18) Patient Home Medication List Home Medication List Reviewed: Yes Alprazolam (Xanax) 0.5 Mg Tablet, 0.5 MG PO TID, (Reported) Entered as Reported by: JANIS PRINCE on 06/15/18 1412 Bupropion HCl (Wellbutrin Sr) 100 Mg Tablet.er, 100 MG PO DAILY, (Reported) Entered as Reported by: BRICE MORRISSEY on 07/22/21 1200 Hydrocodone Bit/Acetaminophen (HYDROcodone/APAP 5 MG/325 MG TAB) 1 Tab Tab, 1 TAB PO Q8H PRN for PAIN-MODERATE (5-7) Prescribed by: ASHLEY TIPTON on 07/22/21 1410 Hydrocodone/Acetaminophen (Hydrocodone-Acetamin 5-325 mg) 1 Each Tablet, 1 TAB PO Q4H PRN for PAIN-SEVERE (8-10) Prescribed by: YANELY JENKINS on 07/23/21 1710 Review of Systems Review of Systems Constitutional: see HPI Past Rxcrith-Zjaido-Zmfvfv Hx Patient Social History Tobacco Use?: Yes Tobacco type used: Cigarettes Smoking Status: Current Everyday Smoker Substance use?: No Alcohol Use?: No Pt feels they are or have been: No Immunizations Up To Date First/Initial COVID19 Vaccinat: NO Second COVID19 Vaccination Rohit: NA Third COVID19 Vaccination Date: NA Seasonal Allergies Seasonal Allergies: Yes Past Medical History Surgery/Hospitalization HX: Hysterectomy; Appendectomy; Cholecysectomy; Anxiety; Depression. 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 Sexually Transmitted Disease: No HIV/AIDS: No Genitourinary: No Gastrointestinal: Yes Gastroesophageal Reflux, Hiatal Hernia Musculoskeletal: Yes Chronic Back Pain Endocrine: No HEENT: No Loss of Vision: Denies Hearing Impairment: Denies Cancer: No Psychosocial: Yes Anxiety, Depression Integumentary: No Blood Disorders: No Adverse Reaction/Blood Tranf: No (N/A) Family Medical History Heart Disease, Hypertension, Other Conditions/Hx Physical Exam Vital Signs Vital Signs - First Documented 08/17/22 13:30 Temp 36.7 Pulse 96 Resp 16 B/P (MAP) 154/99 (117) Pulse Ox 98 O2 Delivery Room Air Capillary Refill : Less Than 3 Seconds Height, Weight, BMI Height: 5'4.00" Weight: 230lbs. 6.0oz. [id number]; 32.00 BMI Method:Stated General Appearance: No Apparent Distress, WD/WN HEENT: PERRL/EOMI, Normal ENT Inspection Neck: Full Range of Motion, Non Tender, Supple Respiratory: Lungs Clear, Normal Breath Sounds Cardiovascular: Regular Rate, Rhythm, No Murmur Neurologic/Psychiatric: Alert, Oriented x3 Skin: Normal Color, Warm/Dry Progress/Results/Core Measures Results/Orders Lab Results Laboratory Tests Test 08/17/22 13:33 08/17/22 14:03 Range/Units Urine Color YELLOW Urine Clarity CLEAR Urine pH 6.0 5-9 Urine Specific [place] 1.010 L 1.016-1.022 Urine Protein NEGATIVE NEGATIVE Urine Glucose (UA) NEGATIVE NEGATIVE Urine Ketones NEGATIVE NEGATIVE Urine Nitrite NEGATIVE NEGATIVE Urine Bilirubin NEGATIVE NEGATIVE Urine Urobilinogen 0.2 < = 1.0 MG/DL Urine Leukocyte Esterase NEGATIVE NEGATIVE Urine RBC (Auto) TRACE-I H NEGATIVE Urine RBC NONE /HPF Urine WBC 0-2 /HPF Urine Squamous Epithelial Cells 25-50 H /HPF Urine Crystals NONE /LPF Urine Bacteria TRACE /HPF Urine Casts NONE /LPF Urine Mucus LARGE H /LPF Urine Culture Indicated NO White Blood Count 8.7 4.3-11.0 10^3/uL Red Blood Count 4.29 3.80-5.11 10^6/uL Hemoglobin 12.9 11.5-16.0 g/dL Hematocrit 37 35-52 % Mean Corpuscular Volume 87 80-99 fL Mean Corpuscular Hemoglobin 30 25-34 pg Mean Corpuscular Hemoglobin Concent 35 32-36 g/dL Red Cell Distribution Width 13.2 10.0-14.5 % Platelet Count 280 130-400 10^3/uL Mean Platelet Volume 10.4 9.0-12.2 fL Immature Granulocyte % (Auto) 0 % Neutrophils (%) (Auto) 69 42-75 % Lymphocytes (%) (Auto) 26 12-44 % Monocytes (%) (Auto) 4 0-12 % Eosinophils (%) (Auto) 1 0-10 % Basophils (%) (Auto) 0 0-10 % Neutrophils # (Auto) 6.0 1.8-7.8 10^3/uL Lymphocytes # (Auto) 2.2 1.0-4.0 10^3/uL Monocytes # (Auto) 0.3 0.0-1.0 10^3/uL Eosinophils # (Auto) 0.1 0.0-0.3 10^3/uL Basophils # (Auto) 0.0 0.0-0.1 10^3/uL Immature Granulocyte # (Auto) 0.0 0.0-0.1 10^3/uL Neutrophils % (Manual) 68 % Lymphocytes % (Manual) 28 % Monocytes % (Manual) 4 % Sodium Level 140 135-145 MMOL/L Potassium Level 3.5 L 3.6-5.0 MMOL/L Chloride Level 105 98-107 MMOL/L Carbon Dioxide Level 24 21-32 MMOL/L Anion Gap 11 5-14 MMOL/L Blood Urea Nitrogen 11 7-18 MG/DL Creatinine 0.89 0.60-1.30 MG/DL Estimat Glomerular Filtration Rate 86 BUN/Creatinine Ratio 12 Glucose Level 82 70-105 MG/DL Calcium Level 9.0 8.5-10.1 MG/DL Corrected Calcium 8.8 8.5-10.1 MG/DL Total Bilirubin 0.3 0.1-1.0 MG/DL Aspartate Amino Transf (AST/SGOT) 16 5-34 U/L Alanine Aminotransferase (ALT/SGPT) 18 0-55 U/L Alkaline Phosphatase 84 40-136 U/L Troponin I < 0.30 <0.30 NG/ML Total Protein 7.0 6.4-8.2 GM/DL Albumin 4.3 3.2-4.5 GM/DL My Orders Orders - ALEXANDRIA SOLOMON MD Troponin I [place] (08/17/22 13:59) Chest 1 View Ap/Pa Only (08/17/22 13:59) Ekg Tracing (08/17/22 13:59) Monitor-Rhythm Ecg Trace Only (08/17/22 13:59) Cbc And Manual Diff (08/17/22 13:59) Comprehensive Metabolic Panel (08/17/22 13:59) Urinalysis (08/17/22 13:59) Ct Head Wo (08/17/22 14:49) Vital Signs/I&O 08/17/22 08/17/22 13:30 16:19 Temp 36.7 36.7 Pulse 96 96 Resp 16 16 B/P (MAP) 154/99 (117) 122/84 Pulse Ox 98 98 O2 Delivery Room Air Room Air Blood Pressure Mean: 117 Progress Progress Note : Time: 16:06 Progress Note Patient blood pressures are better laying down and sitting up. Patient reviewed labs and CT and x-ray with patient. Plan to discharge home and she is going to monitor her blood pressure and follow-up with primary care. ER precautions given. Initial ECG Impression Date: Aug 17, 2022 Initial ECG Impression Time: 14:06 Initial ECG Rate: 80 Initial ECG Intervals: Normal Initial ECG Impression: Normal Diagnostic Imaging Diagonstic Imaging: Xray Comments [facility] [place], [place] NAME: ZEUS BULLARD MED REC#: [id number] PT STATUS: REG ER : 1985 PHYSICIAN: ALEXANDRIA SOLOMON MD ADMIT DATE: 08/17/22/ER FS Signed Date of Exam:08/17/22 CHEST 1 VIEW AP/PA ONLY EXAMINATION: Chest, 1 view. HISTORY: Chest pain. Hypertension. COMPARISON: 12/22/2020. FINDINGS: The lung volumes are normal. No focal consolidation is seen. No large pleural effusion or pneumothorax is seen. The cardiomediastinal silhouette is normal in size and contour. No acute osseous abnormality is seen. IMPRESSION: No acute pleuroparenchymal process. Dictated by: Dictated on workstation # [id number] Dict: 08/17/22 1417 Trans: 08/17/22 1421 [id number] Interpreted by: INDIRA CONTEH DO Electronically signed by: INDIRA CONTEH DO 08/17/[address] Results/Progress Notes NAME: ZEUS BULLARD MED REC#: [id number] PT STATUS: REG ER : 1985 PHYSICIAN: ALEXANDRIA SOLOMON MD ADMIT DATE: 08/17/22/ER FS Signed Date of Exam:08/17/22 CT HEAD WO EXAMINATION: CT head without contrast. TECHNIQUE: Multiple contiguous axial images were obtained through the brain without the use of intravenous contrast. All CT scans use one or more of the following dose optimizing techniques: automated exposure control, MA and/or KvP adjustment based on patient size and exam type or iterative reconstruction. HISTORY: Headache. Hypertension. COMPARISON: None available. FINDINGS: No large acute territorial ischemia, mass, or hemorrhage. No midline shift or mass effect. The ventricles, cortical sulci, and basilar cisterns are patent and unremarkable. The orbits are normal. Paranasal sinuses are normal. Mastoid air cells are clear. No soft tissue abnormality is seen. No osseus lesions or fractures are seen. IMPRESSION: No large acute territorial ischemia, mass, or hemorrhage. Dictated by: Dictated on workstation # [id number] Dict: 08/17/22 1500 Trans: 08/17/22 1504 [id number] Interpreted by: INDIRA CONTEH DO Electronically signed by: INDIRA CONTEH DO 08/17/22 1504 Departure Impression Primary Impression: Elevated blood pressure reading without diagnosis of hypertension Disposition: HOME, SELF-CARE Condition: Stable Departure-Patient Inst. Decision time for Depature: 15:20 Referrals: DARRELL BORGES MD (PCP/Family) Primary Care Physician Patient Instructions: DASH Diet, How to Keep Track of Your Heart Rate and Blood Pressure Add. Discharge Instructions: Follow-up with primary care. Keep a monitor of your blood pressures at home. All discharge instructions reviewed with patient and/or family. Voiced understanding. ALEXANDRIA SOLOMON MD Aug 17, 2022 13:56
[2022-08-17 14:17] LABS: BASOPHILS % (AUTO) 0 % (0-10); EOSINOPHILS # (AUTO) 0.1 10^3/uL (0.0-0.3); EOSINOPHILS % (AUTO) 1 % (0-10); HEMATOCRIT 37 % (35-52); HEMOGLOBIN 12.9 g/dL (11.5-16.0); LYMPHOCYTES # (AUTO) 2.2 10^3/uL (1.0-4.0); LYMPHOCYTES % (AUTO) 26 % (12-44); MEAN CORPUSCULAR HEMOGLOBIN 30 pg (25-34); MEAN CORPUSCULAR HGB CONC 35 g/dL (32-36); MEAN CORPUSCULAR VOLUME 87 fL (80-99); MEAN PLATELET VOLUME 10.4 fL (9.0-12.2); MONOCYTES # (AUTO) 0.3 10^3/uL (0.0-1.0); MONOCYTES % (AUTO) 4 % (0-12); NEUTROPHILS % (AUTO) 69 % (42-75); PLATELET COUNT 280 10^3/uL (130-400); WHITE BLOOD COUNT 8.7 10^3/uL (4.3-11.0)
[2022-08-17 14:17] LABS: BILIRUBIN,URINE NEGATIVE (NEGATIVE); CLARITY,URINE CLEAR; COLOR,URINE YELLOW; GLUCOSE, URINE (UA) NEGATIVE (NEGATIVE); KETONES,URINE NEGATIVE (NEGATIVE); LEUKOCYTE ESTERASE ,URINE NEGATIVE (NEGATIVE); NITRITE,URINE NEGATIVE (NEGATIVE); PROTEIN,URINE NEGATIVE (NEGATIVE)
--- NOTE | 2022-08-17 14:19 | Diagnostic Imaging Report ---
EXAMINATION: Chest, 1 view. HISTORY: Chest pain. Hypertension. COMPARISON: 12/22/2020. FINDINGS: The lung volumes are normal. No focal consolidation is seen. No large pleural effusion or pneumothorax is seen. The cardiomediastinal silhouette is normal in size and contour. No acute osseous abnormality is seen. IMPRESSION: No acute pleuroparenchymal process. Dictated by: Dictated on workstation # [id number]
[2022-08-17 14:22] LABS: BACTERIA,URINE TRACE /HPF; SQUAMOUS EPITHELIAL CELL,UR 25-50 /HPF; WBC,URINE 0-2 /HPF
[2022-08-17 14:44] LABS: ALBUMIN 4.3 GM/DL (3.2-4.5); BILIRUBIN,TOTAL 0.3 MG/DL (0.1-1.0); CREATININE SERUM 0.89 MG/DL (0.60-1.30); POTASSIUM 3.5 MMOL/L (3.6-5.0)
--- NOTE | 2022-08-17 15:02 | Diagnostic Imaging Report ---
EXAMINATION: CT head without contrast. TECHNIQUE: Multiple contiguous axial images were obtained through the brain without the use of intravenous contrast. All CT scans use one or more of the following dose optimizing techniques: automated exposure control, MA and/or KvP adjustment based on patient size and exam type or iterative reconstruction. HISTORY: Headache. Hypertension. COMPARISON: None available. FINDINGS: No large acute territorial ischemia, mass, or hemorrhage. No midline shift or mass effect. The ventricles, cortical sulci, and basilar cisterns are patent and unremarkable. The orbits are normal. Paranasal sinuses are normal. Mastoid air cells are clear. No soft tissue abnormality is seen. No osseus lesions or fractures are seen. IMPRESSION: No large acute territorial ischemia, mass, or hemorrhage. Dictated by: Dictated on workstation # [id number]
[2022-08-17 15:37] LABS: LYMPHOCYTES % (MANUAL) 28 %; MONOCYTES % (MANUAL) 4 %; NEUTROPHILS % (MANUAL) 68 %
[2022-08-17 16:19] VITALS: BP 122/84
== END 2022-08-17 16:19 | disposition home or self-care (01) ==
LOC: EDUNIT# 13:18 → ER FS 13:20
DX: R03.0 Elevated blood-pressure reading, without diagnosis of hypertension (principal); F17.210 Nicotine dependence, cigarettes, uncomplicated; Z28.310 Unvaccinated for COVID-19
CPT/HCPCS: 36415; 70450; 71045; 80053; 81000; 84484; 85007; 85027; 93005; 93041

== ENCOUNTER 2023-01-29 20:24 | Emergency (ER) | payer SELFPAY ==
[~2023-01-29] VITALS: Ht 160 cm; Wt 80.7 kg
[2023-01-29 20:28] VITALS: BP 141/99
[2023-01-29] MEDS ORDERED: KETOROLAC 15 MG/ML VIAL IM ONE (20:45)
[2023-01-29] MEDS ORDERED: PROCHLORPERAZINE 10 MG/2ML INJ (COMPAZINE) IM ONE (20:45)
[2023-01-29] MEDS ORDERED: diphenhydrAMINE 50 MG/ML INJ (BENADRYL) IM ONE (20:45)
--- NOTE | 2023-01-29 20:47 | ED Headache ---
General Chief Complaint: Head/Cervical Problems Stated Complaint: HEADACHE Source: patient Exam Limitations: no limitations History of Present Illness Date Seen by Provider: Jan 29, 2023 Time Seen by Provider: 20:27 Initial Comments 37-year-old female with no pertinent past medical history coming in due to 5 days of intermittent headaches, frontal, moderate, throbbing. She has had headaches before, but this lasts a little bit longer than typical. Tried Tylen ol this morning which helped somewhat. Denies any neck stiffness, fever, vision changes, weakness, numbness associated with it. She does note that she has been lactating for roughly 1 month, and she has had a hysterectomy. She is actively being worked up by her primary physician and is going to get an MRI of her brain as an outpatient. Otherwise denying any other acute complaints Of note, she last had a CT of her brain August 2022 which was reportedly normal Allergies and Home Medications Allergies Coded Allergies: codeine (Verified Allergy, Severe, THROAT SWELLING, 01/25/19) ranitidine (Verified Allergy, Severe, TACHYCARDIA, ITCHING, 06/15/18) atropine (Verified Allergy, Mild, HIVES, 06/15/18) hyoscyamine (Verified Allergy, Mild, HIVES, 06/15/18) omeprazole (Verified Allergy, Mild, RASH, 06/15/18) phenobarbital (Verified Allergy, Mild, HIVES, 06/15/18) scopolamine (Verified Allergy, Mild, HIVES, 06/15/18) Patient Home Medication List Home Medication List Reviewed: Yes Alprazolam (Xanax) 0.5 Mg Tablet, 0.5 MG PO TID, (Reported) Entered as Reported by: JANIS PRINCE on 06/15/18 141 Bupropion HCl (Wellbutrin Sr) 100 Mg Tablet.er, 100 MG PO DAILY, (Reported) Entered as Reported by: BRICE MORRISSEY on 07/22/21 1200 Hydrocodone Bit/Acetaminophen (HYDROcodone/APAP 5 MG/325 MG TAB) 1 Tab Tab, 1 TAB PO Q8H PRN for PAIN-MODERATE (5-7) Prescribed by: ASHLEY TIPTON on 07/22/21 1410 Hydrocodone/Acetaminophen (Hydrocodone-Acetamin 5-325 mg) 1 Each Tablet, 1 TAB PO Q4H PRN for PAIN-SEVERE (8-10) Prescribed by: YANELY JENKINS on 07/23/21 1710 Review of Systems Review of Systems Constitutional: No fever Eyes: No Symptoms Reported Ears, Nose, Mouth, Throat: no symptoms reported Respiratory: no symptoms reported Cardiovascular: no symptoms reported Gastrointestinal: no symptoms reported Genitourinary: no symptoms reported Musculoskeletal: no symptoms reported Skin: no symptoms reported Psychiatric/Neurological: See HPI All Other Systems Reviewed Negative Unless Noted: Yes Past Jqxkyoi-Fuwtxy-Tnvsgl Hx Patient Social History Tobacco Use?: Yes Immunizations Up To Date First/Initial COVID19 Vaccinat: NO Second COVID19 Vaccination Rohit: NA Third COVID19 Vaccination Date: NA Seasonal Allergies Seasonal Allergies: Yes Past Medical History Surgery/Hospitalization HX: Hysterectomy; Appendectomy; Cholecysectomy; Anxiety; Depression. 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 6.0oz. 104.585644ws; 32.00 BMI Method:Stated General Appearance: WD/WN, no apparent distress HEENT: PERRL/EOMI, normal ENT inspection, pharynx normal Neck: non-tender, full range of motion, supple, normal inspection Cardiovascular: regular rate, rhythm, no edema, no murmur Respiratory: chest non-tender, lungs clear, normal breath sounds, no respiratory distress, no accessory muscle use Gastrointestinal: normal bowel sounds, non tender, soft; No distended, No guarding, No rebound Back: normal inspection, no CVA tenderness, no vertebral tenderness Extremities: normal range of motion, non-tender, normal inspection, no pedal edema, no calf tenderness, normal capillary refill Psychiatric: alert, oriented x 3 Crainal Nerves: normal hearing, normal speech, PERRL, other (Normal visual dickson and visual acuity) Coordination/Gait: normal finger to nose, normal gait, negative Romberg's sign Motor/Sensory: no motor deficit, no sensory deficit, no pronator drift Skin: normal color, warm/dry Lymphatic: no adenopathy Progress/Results/Core Measures Results/Orders My Orders Orders - YURI VELA MD Ct Head Wo (01/29/23 20:38) Ketorolac Injection (Toradol Injection) (01/29/23 20:45) Prochlorperazine Injection (Compazine In (01/29/23 20:45) Diphenhydramine Injection (Benadryl Inje (01/29/23 20:45) Medications Given in ED Current Medications Medications Dose Ordered Sig/Shahram Route Start Time Stop Time Status Last Admin Dose Admin Diphenhydramine HCl 25 mg ONCE ONCE IM 01/29/23 20:45 01/29/23 20:46 DC 01/29/23 20:55 25 MG Ketorolac Tromethamine 15 mg ONCE ONCE IM 01/29/23 20:45 01/29/23 20:46 DC 01/29/23 20:59 15 MG Prochlorperazine Edisylate 10 mg ONCE ONCE IM 01/29/23 20:45 01/29/23 20:46 DC 01/29/23 20:58 10 MG Progress Progress Note : Progress Note 37-year-old female presenting for headache. ABCs were intact and vitals were stable on presentation. Physical exam including a comprehensive neuro exam within normal limits. Specifically, she has a normal visual acuity and visual dickson. I biggest concern would be for a prolactinoma given the with the headache in the setting of her having a hysterectomy. She does have this being actively worked up as an outpatient with an MRI brain happening soon she states. CT head ordered and interpreted by me with no obvious bleed or large intracranial mass. She was given IM injections to help with symptoms and her pain is better. I believe she is stable for discharge with outpatient follow- up. She was sent home with strict return precautions Diagnostic Imaging Diagonstic Imaging: CT (head) Comments NAME: ZEUS BULLARD MED REC#: [id number] PT STATUS: REG ER : 1985 PHYSICIAN: YURI VELA MD ADMIT DATE: 01/29/23/ER FS Draft Date of Exam:01/29/23 CT HEAD WO EXAMINATION: CT head without contrast. TECHNIQUE: Multiple contiguous axial images were obtained through the brain without the use of intravenous contrast. All CT scans use one or more of the following dose optimizing techniques: automated exposure control, MA and/or KvP adjustment based on patient size and exam type or iterative reconstruction. HISTORY: New onset worse headaches COMPARISON: 08/17/2022. FINDINGS: The ventricles and sulci are normal. No abnormal attenuation of brain parenchyma is present. No acute intracranial hemorrhage or abnormal extra-axial fluid collection is present. No hyperdense vessel. The calvarium is intact. The mastoid air cells are clear. The visualized paranasal sinuses are clear. The orbits are normal. IMPRESSION: No acute intracranial abnormality. Dictated on workstation # [id number] Dict: 01/29/232116 Trans: 01/29/232120 [facility] [id number] Interpreted by: MIGUEL RIDLEY DO Electronically signed by: Departure Impression Primary Impression: Headache Qualified Codes: G44.209 - Tension-type headache, unspecified, not intractable Additional Impression: symptom Disposition: 01 HOME, SELF-CARE Condition: Improved Departure-Patient Inst. Decision time for Depature: 21:35 Referrals: DARRELL ANDRADE MD (PCP/Family) Primary Care Physician Patient Instructions: Headache, Adult ED Add. Discharge Instructions: Please continue to follow-up with Dr. Andrade in regards to the MRI of your brain. The CT of your head did not show any large mass, but given the , it is possible you have a very small mass in your brain that can cause that which ne eds to be ruled out. Take ibuprofen with Tylenol for your headache. Work/School Note: Family Work Note, Patient Received Medical Care In the Emergency Department On: Jan 29, 2023 Patient Will Be Able to Return to Work/School On: Jan 31, 2023 Work Release Form Date Seen in the Emergency Department: Jan 29, 2023 Return to Work: Jan 31, 2023 Restrictions: No Restrictions YURI VELA MD Jan 29, 2023 20:47
--- NOTE | 2023-01-29 21:21 | Diagnostic Imaging Report ---
EXAMINATION: CT head without contrast. TECHNIQUE: Multiple contiguous axial images were obtained through the brain without the use of intravenous contrast. All CT scans use one or more of the following dose optimizing techniques: automated exposure control, MA and/or KvP adjustment based on patient size and exam type or iterative reconstruction. HISTORY: New onset worse headaches COMPARISON: 08/17/2022. FINDINGS: The ventricles and sulci are normal. No abnormal attenuation of brain parenchyma is present. No acute intracranial hemorrhage or abnormal extra-axial fluid collection is present. No hyperdense vessel. The calvarium is intact. The mastoid air cells are clear. The visualized paranasal sinuses are clear. The orbits are normal. IMPRESSION: No acute intracranial abnormality. Dictated by: Dictated on workstation # [id number]
== END 2023-01-29 21:33 | disposition home or self-care (01) ==
LOC: EDUNIT# 20:24 → ER FS 20:26
DX: R51.9 Headache, unspecified (principal); Z90.710 Acquired absence of both cervix and uterus; Z28.310 Unvaccinated for COVID-19
CPT/HCPCS: 70450; 99284